=== PATIENT | male | born 1945 | race Caucasian/White ===

== ENCOUNTER → 2018-08-17 15:41 | Outpatient (POV) | payer MEDICARE, OTHER, SELFPAY | DX: Z00.00 Encounter for general adult medical examination without abnormal findings (principal) ==

== ENCOUNTER → 2018-09-21 13:29 | Outpatient (POV) | payer MEDICARE, OTHER, SELFPAY | DX: Z00.00 Encounter for general adult medical examination without abnormal findings (principal) ==

== ENCOUNTER 2024-08-22 15:00 | Outpatient (CLI) | payer MEDICARE, OTHER, SELFPAY ==
[2024-08-22 18:49] LABS: Alanine Aminotransferase 17 U/L (12-78); Albumin Level 4.2 g/dl (3.5-5.0); Albumin/Globulin Ratio 1.8 (1.1-1.8); Alkaline Phosphatase 76 U/L (38-126); Anion Gap 12.5 mEq/L (5-15); Aspartate Amino Transferase 28 U/L (17-59); Blood Urea Nitrogen 18 mg/dl (9-20); Calcium 10.2 mg/dl (8.4-10.2); Carbon Dioxide 26 mmol/L (22.0-30.0); Chloride 105 mmol/L (98-107); Estimated Glomerular Filt Rate 82 ml/min (>60); GFR (African American) 99 ML/MIN (>60); Globulin 2.3 g/dL (1.3-3.2); Glucose 98 mg/dl (74-100); Potassium 4.5 mmoL/L (3.5-5.1); Sodium 139 mmol/L (136-145); Total Protein,Serum 6.5 g/dl (6.3-8.2)
[2024-08-22 19:04] LABS: 25-OH Vitamin D, Total 26.7 ng/mL (30-100)
[2024-08-22 19:20] LABS: Prostate Specific Ag Screen 1.3 ng/ml (0.0-4.0); Thyroid Stimulating Hormone 0.49 uIU/mL (0.465-4.68)
== END 2024-08-22 23:59 | disposition home or self-care (01) ==
LOC: LAB.DROPOF 08-23 13:09
PROVIDERS: PCP Internal Medicine; Visit Provider Internal Medicine
DX: Z12.5 Encounter for screening for malignant neoplasm of prostate (principal); R53.83 Other fatigue; E55.9 Vitamin D deficiency, unspecified; R73.03 Prediabetes
CPT/HCPCS: 80053; 82306; 84443; G0103

== ENCOUNTER 2025-02-16 15:35 | Outpatient (CLI) | payer MEDICARE, OTHER, SELFPAY ==
[2025-02-16 18:14] LABS: Basophils % 0.2 % (0.1-2.0); Eosinophils # 0.1 Kmm3 (0.0-0.4); Eosinophils % 0.3 % (0.1-12.0); Hematocrit 35.9 % (42.0-52.0); Hemoglobin 12.1 g/dL (14.1-18.0); Immature Granulocytes # 0.11 10^3uL; Immature Granulocytes % 0.7 %; Lymphocytes # 0.7 K/mm3 (0.7-4.5); Lymphocytes % 4.3 % (10-50); Mean Corpuscular HGB Conc 33.7 g/dL (31.8-35.4); Mean Corpuscular Hemoglobin 29.4 pg (27.0-31.2); Mean Corpuscular Volume 87.1 fl (80-94); Mean Platelet Volume 10.6 fl (7.4-10.4); Monocytes # 1.2 K/mm3 (0.1-1.0); Monocytes % 7.9 % (1.7-9.3); Neutrophils # 13.6 K/mm3 (1.8-7.8); Neutrophils % 86.6 % (37.0-80.0); Nucleated Red Blood Cells # 0 10^3/uL; Nucleated Red Blood Cells % 0 %; Platelet Count 404 K/mm3 (142-424); Red Blood Count 4.12 M/mm3 (4.60-6.20); Red Cell Distribution Width-SD 44.6 fL; White Blood Count 15.8 K/mm3 (4.8-10.8)
[2025-02-16 19:20] LABS: Alanine Aminotransferase 42 U/L (12-78); Albumin Level 3.5 g/dl (3.5-5.0); Albumin/Globulin Ratio 1.3 (1.1-1.8); Alkaline Phosphatase 119 U/L (38-126); Amylase 39 U/L (30-110); Aspartate Amino Transferase 31 U/L (17-59); Blood Urea Nitrogen 16 mg/dl (9-20); Calcium 9.8 mg/dl (8.4-10.2); Carbon Dioxide 23 mmol/L (22.0-30.0); Chloride 100 mmol/L (98-107); Estimated Glomerular Filt Rate 82 ml/min (>60); GFR (African American) 99 ML/MIN (>60); Globulin 2.7 g/dL (1.3-3.2); Glucose 100 mg/dl (74-100); Lipase 52 U/L (23-300); Sodium 132 mmol/L (136-145); Total Protein,Serum 6.2 g/dl (6.3-8.2)
[2025-02-16 19:48] LABS: Anion Gap 13.9 mEq/L (5-15); Potassium 4.9 mmoL/L (3.5-5.1)
== END 2025-02-16 23:59 | disposition home or self-care (01) ==
LOC: LAB.DROPOF 02-19 22:38
PROVIDERS: PCP Family Medicine; Visit Provider Family Medicine
DX: R10.11 Right upper quadrant pain (principal)
CPT/HCPCS: 80053; 82150; 83690; 85025

== ENCOUNTER 2025-02-19 16:07 | Outpatient (CLI) | payer MEDICARE, OTHER, SELFPAY ==
[2025-02-19 18:32] LABS: Basophils # 0.1 K/mm3 (0-0.2); Basophils % 0.5 % (0.1-2.0); Eosinophils # 0.1 Kmm3 (0.0-0.4); Eosinophils % 0.9 % (0.1-12.0); Hematocrit 34.3 % (42.0-52.0); Hemoglobin 11.3 g/dL (14.1-18.0); Immature Granulocytes # 0.07 10^3uL; Immature Granulocytes % 0.6 %; Lymphocytes # 0.9 K/mm3 (0.7-4.5); Mean Corpuscular HGB Conc 32.9 g/dL (31.8-35.4); Mean Corpuscular Volume 87.9 fl (80-94); Monocytes # 0.8 K/mm3 (0.1-1.0); Monocytes % 7.1 % (1.7-9.3); Neutrophils # 9.1 K/mm3 (1.8-7.8); Neutrophils % 82.9 % (37.0-80.0); Nucleated Red Blood Cells # 0 10^3/uL; Nucleated Red Blood Cells % 0 %; Platelet Count 542 K/mm3 (142-424); Red Cell Distribution Width 13.7 % (11.5-17.5); Red Cell Distribution Width-SD 44.3 fL
== END 2025-02-19 23:59 | disposition home or self-care (01) ==
LOC: LAB.DROPOF 20:32
PROVIDERS: PCP Family Medicine; Visit Provider Family Medicine
DX: R10.9 Unspecified abdominal pain (principal)
CPT/HCPCS: 85025

== ENCOUNTER 2025-08-06 09:54 | Emergency (ER) | payer MEDICARE, OTHER, SELFPAY ==
--- OUTSIDE RECORDS SUMMARY | 2025-07-18 11:30 | XMS_ITS | Encounter Summary ---
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) Procedures MR Orbits w and wo IV Contrast Jose Miguel Mendieta MD [address] [facility] [address] [place] [id number] Phone: tel: fax: Referral ID Status Reason Start Date Expiration Date Visits Re quested Visits Authorized [id number] Closed 07/18/2025 01/17/2027 1 1 * Imaging (Urgent) - Closed Specialty Diagnoses / Procedures Referred By Contac t Referred To Contact Radiology Diagnoses 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) Procedures CT Chest w IV Contrast Jose Miguel Mendieta MD [address] [place] [address] Phone: tel: fax: Referral ID Status Reason Start Date Expiration Date Visits Re quested Visits Authorized [id number] Closed 07/18/2025 01/17/2027 1 1 * Imaging (Urgent) - Closed Specialty Diagnoses / Procedures Referred By Contac t Referred To Contact Radiology Diagnoses 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) Procedures CT Abdomen Pelvis w IV Contrast Jose Miguel Mendieta MD [address] [facility] [address] [place] [address] Phone: tel: fax: Referral ID Status Reason Start Date Expiration Date Visits Re quested Visits Authorized [id number] Closed 07/18/2025 01/17/2027 1 1 Encounter Details Date Type Department Care Team (Late st Contact Info) Description 07/18/2025 12:30 PM EDT Office Visit [facility] [address] [place] [address] Jose Miguel Mendieta MD [address] [phone] 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); Exudative retinal detachment of left eye Social History Tobacco Use Types Packs/Day Years Used Date Smoking Tobacco: Former Cigarettes Q uit: 07/18/1975 Passive Smoke Exposure: Past Smokeless Tobacco: Never Tobacco Cessation:Counseling Given: No Sex and Gender Information Value Date Recorded Sex Assigned at Not on file Legal Sex Male 2:53 PM EDT Gender Identity Not on file Sexual Orientation Not on file documented as of this encounter Miscellaneous Notes * Progress Notes - Mario Rubio MD - 07/18/2025 12:30 PM EDT Referring physician: No referring provider defined for this encounter. Primary Care Provider: No primary care provider on file. Visit Diagnosis: 1. 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 Exudative retinal detachment of left eye Clinic Note: Thanks for involving Retina / Ocular Oncology services at [facility] in the care of Zaynab Lincoln is a 80 y.o. male who presents to the clinic today for Left eye (OS) cilliochoroidal Melanoma - Referred by Dr. Leanna Segundo MD - Personal history of cancer no - Family history of cancer melanoma of face in brother with hematogenous spread, cancer in sister but unknown type - Patient aware about lesion since 2-3 days - Blurred vision last 2-3 months - Clinical Features: - Melanotic elevated pigmented cilliochoroidal mass - Exudative Retinal Detachment + - USG : Basal Dimensions 16.51*16.87 mm; Thickness 12.55 mm; Acoustic hollowness: yes - UBM confirms CB involvement - transillumination shows pigmentation from 7:00 - 12:00 - Needs MRI orbit and CT chest and Abdomen - Risk, Benefits and Alternatives of Enucleation vs EBRT discussed - Patient's sister in law voiced her understanding as patient donot speak much - Refer to Dr Mathew for enucleation Follow up for Refer to Dr Mathew. Patient expressed understanding of the diagnoses, plan, and follow up. Electronically signed by: Jose Miguel Mendieta MD 07/18/2025 5:55 PM Electronically Signed by: Mario Rubio MD - 07/18/2025 - 2:22 PM Tobacco Cessation Initiative: Tobacco Use: Medium Risk (07/18/2025) Patient History Smoking Tobacco Use: Former Smokeless Tobacco Use: Never Passive Exposure: Past The patient has been counseled on tobacco cessation: Not Applicable A total of 45 minutes was spent on this visit, reviewing both external and internal historical documentation, reviewing the examination and investigations findings with patient, discussing managementplan with the patient and documenting all the findings in the note. This time documented is exclusive of separately reportable procedures. Cosigned by Jose Miguel Mendieta MD at 07/18/2025 5:55 PM EDT Associated attestation - Jose Miguel Mendieta MD - 07/18/2025 5:55 PM EDT I saw and evaluated the patient with the resident/fellow. I discussed the case with the resident/fellow and agree with the findings and plan as documented. 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 1. There are two ellipsoid masses within the left globe. The larger mass located along the medial aspect of the globe measures approximately 17 mm x 11 mm x 17 mm in size which appears to invade ciliary body, iris and the adjacent sclera as described above. The smaller mass measuring approximately 10 mm x 5 mm x 11 mm in size is located in the inferolateral quadrant and demonstrates less enhancement and diffusion restriction compared to the larger mass. No obvious involvement of the left optic nerve is seen. 2. The right orbit and its contents appear unremarkable. No obvious abnormal enhancement or mass is seen in the visualized brain parenchyma. Recommend clinical correlation and ophthalmologic evaluation. CRITICAL RESULT: No COMMUNICATION: Per this written report. By electronically signing this report, I, the attending physician, attest that I have personally reviewed the images/data for the above examination(s) and agree with the final edited report. Drafted by Kaveh Townsend MD on 07/30/2025 9:36 AM Final report signed by Luisa Harkins MD on 07/30/2025 11:36 AM Narrative 07/30/2025 11:36 AM EDT CLINICAL INDICATION: OS Uveal Melanoma TECHNIQUE: Multiplanar multiecho sequences were obtained utilizing T1 and T2 weighting and axial diffusion weighted images through the orbits. Imaging was performed with and without fat saturation and with and without IV contrast. A coronal post-contrast 1mm thick T1-weighted 3D MP RAGE and T2 -SPACE sequences were obtained and multiplanar reformatted images were created. 7.6 mL of Gadavist administered intravenously. COMPARISON: None. FINDINGS: Diagnostic Quality: Adequate. Right Orbit: No orbital masses are present. The globe, extraocular muscles, and lacrimal glands are normal. Optic Nerves: The optic nerves are normal in size and signal intensity. No abnormal enhancement is present within the optic nerves or optic nerve sheaths. Left Orbit: Globe: There are two ellipsoid masses within the left globe: the larger mass located along the medial aspect of the globe measures approximately 17 mm AP by 11 mm transverse by 17 mm in craniocaudal dimensions (series 9, image 99 and series 8, image 33). It demonstrates hypointense signal on T2-weighted images, hypointense on T1-weighted images, diffusion restriction and intense postcontrast enhancement. Mean ADC of the mass is 599 mm2/sec and that of the vitreous is 3893 mm2/sec. The smaller mass located along the inferior lateral quadrant of the globe is difficult to measure precisely because of motion degradation but possibly measures approximately 10 mm x 5 mm transaxial plane and 11 mm in craniocaudal dimensions (series 9, image 77 and series 8, image 37). It demonstrates less enhancement compared to the larger mass. No obvious diffusion restriction is seen in this lesion. Location and Invasion: The medially located larger mass arises within the choroid and appears to invade ciliary body and iris (series 6, image 78, 79). There is irregular inner contour and/or slight enhancement of the sclera to suggest scleral invasion (although MRI has limited utility in identification/exclusion of scleral invasion). There is no evidence of extrascleral extension. There is no obvious pre- and postlaminar optic nerve invasion within the limits of motion degradation. The smaller, laterally located mass is not demonstrated invasion of the C3 body, aneurysm or optic nerve. Extraocular muscles: Normal. Lacrimal glands: Normal. Optic Nerves: The optic nerves are normal in size and signal intensity. No abnormal enhancement is present within the optic nerves or optic nerve sheaths. Soft Tissues: No masses are present within the preseptal and periorbital soft tissues. Sellar/Suprasellar Region: No sellar or suprasellar masses are present. No cavernous sinus masses are present. Paranasal Sinuses/Nasal Cavity: The visualized paranasal sinuses are grossly clear. No nasal masses are present. Intracranial: On the limited evaluation of the brain, no large mass is evident. Procedure Note Luisa Harkins MD - 07/30/2025 CLINICAL INDICATION: OS Uveal Melanoma TECHNIQUE: Multiplanar multiecho sequences were obtained utilizing T1 and E5hmljcupwy and axial diffusion weighted images through the orbits. Imagingwas performed with and without fat saturation and with and without IVcontrast. A coronal post-contrast 1mm thick T1-weighted 3D MP RAGE and T2-SPACE sequences were obtained and multiplanar reformatted images werecreated. 7.6 mL of Gadavist administered intravenously. COMPARISON: None. FINDINGS: Diagnostic Quality: Adequate. Right Orbit: No orbital masses are present. The globe, extraocular muscles, andlacrimal glands are normal. Optic Nerves: The optic nerves are normal in size and signal intensity. Noabnormal enhancement is present within the optic nerves or optic nervesheaths. Left Orbit: Globe: There are two ellipsoid masses within the left globe: the largermass located along the medial aspect of the globe measures [id number] mm AP by 11 mm transverse by 17 mm in craniocaudal dimensions (series9, image 99 and series 8, image 33). It demonstrates hypointense signal onT2-weighted images, hypointense on T1-weighted images, diffusionrestriction and intense postcontrast enhancement. Mean ADC of the mass is599 mm2/sec and that of the vitreous is 3893 mm2/sec. The smaller mass located along the inferior lateral quadrant of the globeis difficult to measure precisely because of motion degradation butpossibly measures approximately 10 mm x 5 mm transaxial plane and 11 mm incraniocaudal dimensions (series 9, image 77 and series 8, image 37). Itdemonstrates less enhancement compared to the larger mass. No obviousdiffusion restriction is seen in this lesion. Location and Invasion: The medially located larger mass arises within thechoroid and appears to invade ciliary body and iris (series 6, image 78,79). There is irregular inner contour and/or slight enhancement of thesclera to suggest scleral invasion (although MRI has limited utility inidentification/exclusion of scleral invasion). There is no evidence ofextrascleral extension. There is no obvious pre- and postlaminar opticnerve invasion within the limits of motion degradation. The smaller, laterally located mass is not demonstrated invasion of the C3body, aneurysm or optic nerve. Extraocular muscles: Normal. Lacrimal glands: Normal. Optic Nerves: The optic nerves are normal in size and signal intensity. Noabnormal enhancement is present within the optic nerves or optic nervesheaths. Soft Tissues: No masses are present within the preseptal and periorbitalsoft tissues. Sellar/Suprasellar Region: No sellar or suprasellar masses are present. Nocavernous sinus masses are present. Paranasal Sinuses/Nasal Cavity: The visualized paranasal sinuses aregrossly clear. No nasal masses are present. Intracranial: On the limited evaluation of the brain, no large mass isevident. IMPRESSION: Limitations: Significant motion degradation. 1. There are two ellipsoid masses within the left globe. The larger masslocated along the medial aspect of the globe measures approximately 17 mmx 11 mm x 17 mm in size which appears to invade ciliary body, iris and theadjacent sclera as described above. The smaller mass measuringapproximately 10 mm x 5 mm x 11 mm in size is located in the inferolateralquadrant and demonstrates less enhancement and diffusion restrictioncompared to the larger mass. No obvious involvement of the left opticnerve is seen. 2. The right orbit and its contents appear unremarkable. No obviousabnormal enhancement or mass is seen in the visualized brain parenchyma. Recommend clinical correlation and ophthalmologic evaluation. CRITICAL RESULT: No COMMUNICATION: Per this written report. By electronically signing this report, I, the attending physician, attestthat I have personally reviewed the images/data for the aboveexamination(s) and agree with the final edited report. Drafted by Kaveh Townsend MD on 07/30/2025 9:36 AM Final report signed by Lusia Harkins MD on 07/30/2025 11:36 AM Jose Miguel Mendieta MD IMG MRI PROCEDURES Final Result * CT Chest w IV Contrast (07/26/2025 1:56 PM EDT) Anatomical Region Laterality Modality Chest Computed Tomogra phy Impressions 07/26/2025 3:20 PM EDT No definitive evidence of thoracic metastatic disease. Tiny right apical noncalcified pulmonary nodule. CRITICAL RESULT: No. COMMUNICATION: Per this written report. By electronically signing this report, I, the attending physician, attest that I have personally reviewed the images/data for the above examination(s) and agree with the final edited report. Drafted by Donnie De Los Santos MD on 07/26/2025 2:35 PM Final report signed by Santy Olson MD on 07/26/2025 3:20 PM Narrative 07/26/2025 3:20 PM EDT CLINICAL INDICATION: OS Uveal Melanoma systemic surveillance TECHNIQUE: Multiple CT helical images were obtained from thoracic inlet through upper abdomen with administration of IV contrast. 100 mL of Omnipaque-300 were administered intravenously. The imaging protocol used in this examination was optimized to achieve diagnostic quality with the lowest possible radiation dose in accordance with the principles of ALARA (As Low As Reasonably Achievable). COMPARISON: None. FINDINGS: Mediastinum and Pleura: No suspicious hilar mediastinal adenopathy. Moderate multivessel coronary calcification. Several hypodensities within the thyroid, largest measuring 4 mm (series 2 image 69). Lungs: Central airways are patent. No mass or consolidation. Bibasilar atelectasis. Tiny right apical nodule (series 2 image 121). Upper Abdomen: Please see separate report for findings of the concurrently performed abdominal CT. Musculoskeletal: Multilevel degenerative changes of the spine without suspicious lytic or sclerotic lesion. Degenerative changes of the shoulders. Procedure Note Santy Olson MD - 07/26/2025 CLINICAL INDICATION: OS Uveal Melanoma systemic surveillance TECHNIQUE: Multiple CT helical images were obtained from thoracic inlet through upperabdomen with administration of IV contrast. 100 mL of Omnipaque-300 wereadministered intravenously. The imaging protocol used in this examination was optimized to achievediagnostic quality with the lowest possible radiation dose in accordancewith the principles of ALARA (As Low As Reasonably Achievable). COMPARISON: None. FINDINGS: Mediastinum and Pleura: No suspicious hilar mediastinal adenopathy.Moderate multivessel coronary calcification. Several hypodensities withinthe thyroid, largest measuring 4 mm (series 2 image 69). Lungs: Central airways are patent. No mass or consolidation. Bibasilaratelectasis. Tiny right apical nodule (series 2 image 121). Upper Abdomen: Please see separate report for findings of the concurrentlyperformed abdominal CT. Musculoskeletal: Multilevel degenerative changes of the spine withoutsuspicious lytic or sclerotic lesion. Degenerative changes of theshoulders. IMPRESSION: No definitive evidence of thoracic metastatic disease. Tiny right apical noncalcified pulmonary nodule. CRITICAL RESULT: No. COMMUNICATION: Per this written report. By electronically signing this report, I, the attending physician, attestthat I have personally reviewed the images/data for the aboveexamination(s) and agree with the final edited report. Drafted by Donnie De Los Santos MD on 07/26/2025 2:35 PM Final report signed by Santy Olson MD on 07/26/2025 3:20 PM us Jose Miguel Mendieta MD IMG CT PROCEDURES Final Result * CT Abdomen Pelvis w IV Contrast (07/26/2025 1:56 PM EDT) Anatomical Region Laterality Modality Abdomen, Pelvis Computed Tomogra phy Impressions 07/26/2025 2:11 PM EDT Heterogenous appearance of the gallbladder with indistinct margins and concern for infiltration into the adjacent hepatic parenchyma concerning for malignancy. Indeterminate left adrenal gland nodule. Numerous low-attenuation hepatic lesions majority consistent with simple cysts. Few additional foci are too small to characterize. Bilateral nephrolithiasis. No hydronephrosis. CRITICAL RESULT: No. COMMUNICATION: Per this written report. Drafted by Lynn Corrales MD on 07/26/2025 2:01 PM Final report signed by Lynn Corrales MD on 07/26/2025 2:11 PM Narrative 07/26/2025 2:11 PM EDT CLINICAL INDICATION: OS Uveal Melanoma systemic surveillance TECHNIQUE: Multiple axial CT images were obtained from lung bases through pubic symphysis following administration of IV contrast, Omnipaque 300, 100 mL. Reformatted images in the coronal and sagittal planes were generated from the axial data set to facilitate diagnostic accuracy. Total DLP (Dose-Length Product): 439.28 mGy.cm. Please note: The reported value represents the total of one or more individual components during the CT acquisition on this date and at this time, and as such, the same value may appear in more than one CT report depending on the interpreting/reporting physicians. COMPARISON: None. FINDINGS: Lower Chest: Please see separate report. Solid Abdominal Organs: Multiple low-attenuation lesions along the right and left hepatic lobes consistent with hepatic cysts. Several smaller low-attenuation lesions are too small to characterize. Largest lesion in the left hepatic lobe measures 8.5 cm (3:62). Right hepatic lobe lesion measures 6 cm (3:73). Heterogenous gallbladder with indistinct margins and concern for infiltration into the adjacent hepatic parenchyma. No biliary ductal dilatation. Unremarkable spleen, pancreas, right adrenal gland left adrenal gland nodule measures 16 mm (3:74). Symmetric renal enhancement. Bilateral nephrolithiasis with 9 mm calculus in the left lower pole. No hydronephrosis. GI Tract/Mesentery/Peritoneum: Unremarkable stomach. The large and small bowel are normal in caliber. Small bowel diverticulosis. No acute inflammation. No clearly suspicious mesenteric or peritoneal findings. Pelvic Viscera: Unremarkable urinary bladder. Enlarged prostate. Lymph Nodes/Vasculature: No lymphadenopathy by CT size criteria. The aortoiliac vasculature is patent and normal in caliber. Free Fluid: No free fluid in the abdomen or pelvis. Musculoskeletal and Body Wall: No aggressive or suspicious findings. Degenerative changes of the spine greatest at L5-S1. Probable T3 12 Schmorl's node. Right inguinal hernia. Procedure Note Lynn Corrales MD - 07/26/2025 CLINICAL INDICATION: OS Uveal Melanoma systemic surveillance TECHNIQUE: Multiple axial CT images were obtained from lung bases through pubicsymphysis following administration of IV contrast, Omnipaque 300, 100 mL.Reformatted images in the coronal and sagittal planes were generated fromthe axial data set to facilitate diagnostic accuracy. Total DLP (Dose-Length Product): 439.28 mGy.cm. Please note: The reportedvalue represents the total of one or more individual components during theCT acquisition on this date and at this time, and as such, the same valuemay appear in more than one CT report depending on theinterpreting/reporting physicians. COMPARISON: None. FINDINGS: Lower Chest: Please see separate report. Solid Abdominal Organs: Multiple low-attenuation lesions along the rightand left hepatic lobes consistent with hepatic cysts. Several smallerlow-attenuation lesions are too small to characterize. Largest lesion inthe left hepatic lobe measures 8.5 cm (3:62). Right hepatic lobe lesionmeasures 6 cm (3:73). Heterogenous gallbladder with indistinct margins andconcern for infiltration into the adjacent hepatic parenchyma. No biliaryductal dilatation. Unremarkable spleen, pancreas, right adrenal gland leftadrenal gland nodule measures 16 mm (3:74). Symmetric renal enhancement.Bilateral nephrolithiasis with 9 mm calculus in the left lower pole. Nohydronephrosis. GI Tract/Mesentery/Peritoneum: Unremarkable stomach. The large and smallbowel are normal in caliber. Small bowel diverticulosis. No acuteinflammation. No clearly suspicious mesenteric or peritoneal findings. Pelvic Viscera: Unremarkable urinary bladder. Enlarged prostate. Lymph Nodes/Vasculature: No lymphadenopathy by CT size criteria. Theaortoiliac vasculature is patent and normal in caliber. Free Fluid: No free fluid in the abdomen or pelvis. Musculoskeletal and Body Wall: No aggressive or suspicious findings.Degenerative changes of the spine greatest at L5-S1. Probable T3 12Schmorl's node. Right inguinal hernia. IMPRESSION: Heterogenous appearance of the gallbladder with indistinct margins andconcern for infiltration into the adjacent hepatic parenchyma concerningfor malignancy. Indeterminate left adrenal gland nodule. Numerous low-attenuation hepatic lesions majority consistent with simplecysts. Few additional foci are too small to characterize. Bilateral nephrolithiasis. No hydronephrosis. CRITICAL RESULT: No. COMMUNICATION: Per this written report. Drafted by Lynn Corrales MD on 07/26/2025 2:01 PM Final report signed by Lynn Corrales MD on 07/26/2025 2:11 PM us Jose Miguel Mendieta MD IMG CT PROCEDURES Final Result * Ultrasound Biomicroscopy (UBM) - OD - Right Eye (07/18/2025 5:47 PM EDT) Anatomical Region Laterality Modality Head Other Narrative 07/18/2025 5:47 PM EDT Images from the original result were not included. Quality was good. Notes Addendum: Left eye (OS) not right eye (OD) us Jose Miguel Mendieta MD [facility] ULTRASOUND Edited Result - Final * B-Scan Ultrasound - OD - Right Eye (07/18/2025 5:47 PM EDT) Anatomical Region Laterality Modality Head Other Narrative 07/18/2025 5:47 PM EDT Images from the original result were not included. Quality was good. Notes Addendum: Left eye (OS) not right eye (OD) us Jose Miguel Mendieta MD OPH ULTRASOUND Edited Result - Final * Wide Field Color Fundus Photography - OU - Both Eyes (07/18/2025 5:46 PM EDT) Anatomical Region Laterality Modality Fundus Photograp hy Narrative 07/18/2025 5:46 PM EDT Right eye dilated tortous vessel, rest within normal limit Left eye large cilliochoroidal mass lesion from 6-12 o'clock with Exudative Retinal Detachment us Jose Miguel Mendieta MD OPH PHOTOGRAPHY Final Result * OCT, Retina - OU - Both Eyes (07/18/2025 5:44 PM EDT) Anatomical Region Laterality Modality Head Optical Coherenc e Tomography Narrative 07/18/2025 5:44 PM EDT Right Eye Quality was good. Scan locations included subfoveal. Progression has no prior data. Left Eye Quality was good. Scan locations included subfoveal. Progression has no prior data. 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
--- OUTSIDE RECORDS SUMMARY | 2025-07-18 11:40 | XMS_ITS | Encounter Summary ---
Author Organization Healthcare Address [address] [place] [address] Care Team Providers Care Herb Counselor Name Role Phone Unavailable Primary Care Provider Unavailabl e Encounter Details Date Type Department Care Team (Late st Contact Info) Description 07/18/2025 12:40 PM EDT Ancillary Procedure [facility] [address] [place] [address] Social History Tobacco Use Types [...] Encounters Date Type Department Care Team (Late Contact Info) Description 08/08/2025 11:15 AM EST Office Visit [facility] [address] [place] [address] Sridhar Mathew MD [address] [address] documented as of this encounter Procedures Procedure Name Priority Date/Time Associated Diagnosis Comments WIDE FIELD COLOR FUNDUS PHOTOGRAPHY - OU - BOTH EYES Routine 07/18/2025 5:46 PM EDT 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) documented in this encounter Results * Wide Field Color Fundus Photography - OU - Both Eyes (07/18/2025 5:46 PM EDT) Anatomical Region Laterality Modality Fundus Photograp hy Narrative 07/18/2025 5:46 PM EDT Right eye dilated tortous vessel, rest within normal limit Left eye large cilliochoroidal mass lesion from 6-12 o'clock with Exudative Retinal Detachment us Jose Miguel Mendieta MD OPHTH PHOTOGRAPHY Final Result documented in this encounter Visit Diagnoses Not on filedocumented in this encounter Additional Health Concerns Assessment Noted Time A fall risk assessment has been complete d for the patient 07/18/2025 12:58 PM EDT documented as of this encounter
--- OUTSIDE RECORDS SUMMARY | 2025-07-18 11:40 | XMS_ITS | Encounter Summary ---
Author Organization [facility] Address [address] [place] [address] Care Team Providers Care Review Rn Name Role Phone Unavailable Primary Care Provider Unavailabl e Encounter Details Date Type Department Care Team (Late st Contact Info) Description 07/18/2025 12:40 PM EDT Ancillary Procedure [facility] [address] [place] [address] Social History Tobacco Use Types [...] Description 08/08/2025 11:15 AM EST Office Visit [facility] [address] [place] [address] Sridhar Mathew MD [address] [address] documented as of this encounter [...]
--- OUTSIDE RECORDS SUMMARY | 2025-07-26 11:35 | XMS_ITS | Encounter Summary ---
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) Procedures CT Chest w IV Contrast Jose Miguel Mendieta MD [address] [address] Phone: tel: fax: Referral ID Status Reason Start Date Expiration Date Visits Re quested Visits Authorized [id number] Closed 07/18/2025 01/17/2027 1 1 * Imaging (Urgent) - Closed Specialty Diagnoses / Procedures Referred By Contac t Referred To Contact Radiology Diagnoses 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) Procedures CT Abdomen Pelvis w IV Contrast Jose Miguel Mendieta MD 110 [facility] [address] [place] [phone] Phone: tel: fax: Referral ID Status Reason Start Date Expiration Date Visits Re quested Visits Authorized [id number] Closed 07/18/2025 01/17/2027 1 1 Reason for Visit * Imaging (Urgent) - Closed Specialty Diagnoses / Procedures Referred By Contac t Referred To Contact Radiology Diagnoses 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) Procedures CT Abdomen Pelvis w IV Contrast Jose Miguel Mendieta MD [address] [place] [address] Phone: tel: fax: Referral ID Status Reason Start Date Expiration Date Visits Re quested Visits Authorized [id number] Closed 07/18/2025 01/17/2027 1 1 Encounter Details Date Type Department Care Team (Latest Contact Info) Description 07/26/2025 12:35 PM EDT - 07/26/2025 11:59 PM EDT Hospital Encounter [facility] [address] [place] [address] 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 [...] Discharge Instructions * Discharge Instructions* Callum [place] M - 07/26/2025 1:01 PM EDT Images from [...] every 6 hours as needed. HYDROcodone-aceta minophen ([place]) 5-325 MG tablet Take 1 tablet by [...] Description 08/08/2025 11:15 AM EST Office Visit [facility] [address] [place] [phone] Sridhar Mathew MD [address] [address] documented as of this encounter Goals [...] documented as of this encounter Care Teams Relay Record Clerk Relationship Specialty Start Date End Date Pcp, No [address] [place] [address] PCP - General Family Medicine 07/26/25 documented as of this encounter
--- OUTSIDE RECORDS SUMMARY | 2025-07-30 06:33 | XMS_ITS | Encounter Summary ---
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) Procedures MR Orbits w and wo IV Contrast Jose Miguel Mendieta MD [address] [employer] [address] [address] Phone: tel: fax: Referral ID Status Reason Start Date Expiration Date Visits Re quested Visits Authorized [id number] Closed 07/18/2025 01/17/2027 1 1 Reason for Visit * Imaging (Urgent) - Closed Specialty Diagnoses / Procedures Referred By Kira pino Referred To Contact Radiology Diagnoses 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) Procedures MR Orbits w and wo IV Contrast Jose Miguel Mendieta MD [address] [employer] [address] [address] Phone: tel: fax: Referral ID Status Reason Start Date Expiration Date Visits Re quested Visits Authorized [id number] Closed 07/18/2025 01/17/2027 1 1 Encounter Details Date Type Department Care Team (Latest Contact Info) Description 07/30/2025 7:33 AM EDT - 07/30/2025 11:59 PM EDT Hospital Encounter PAV A Radiology [address] [place] [address] 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 Wish to be (Past 1 Month) No 025 2:31 PM EDT Loraine Beebe RN 2. Non-Specific Active Suici danelle Thoughts (Past 1 Month) No 08/02/2025 2:31 PM EDT Tim Beebe RN 6. Suicidal Behavior (Lifetime) No 2:31 PM EDT Loraine Beebe RN documented as of this encounter Medications at Time of Discharge acetaminophen (Tylenol) 500 MG tablet Take 2 tablets by mouth every 6 hours as needed. HYDROcodone-aceta minophen ([place]) 5-325 MG tablet Take 1 tablet by [...] Description 08/08/2025 11:15 AM EST Office Visit [facility] [address] [place] [address] Sridhar Mathew MD [address] [place] [address] documented as of this encounter Goals [...] multiecho sequences were obtained utilizing T1 and H5faffajqyl and axial diffusion weighted images through the [...] the medial aspect of the globe measures [id number] mm AP by 11 mm transverse by [...] documented as of this encounter Care Teams Staffing Consultant Relationship Specialty Start Date End Date Pcp, [place] [address] PCP - General Family Medicine 07/26/25 documented as of this encounter
--- OUTSIDE RECORDS SUMMARY | 2025-07-30 10:30 | XMS_ITS | Encounter Summary ---
Author Organization [facility] Address [address] 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 male. Chief Complaint eye melanoma HPI 80 year old male here for enucleation evaluation. 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 He states left eye seems stable no new concerns. Last edited by Tiarra Gee on 07/30/2025 11:34 AM. No current outpatient medications on file. (Ophthalmic Drugs) No current facility-administered medications for this visit. (Ophthalmic Drugs) Current Outpatient Medications (Other) Medication Sig acetaminophen (Tylenol) 500 MG tablet Take 2 tablets by mouth every 6 hours as needed. No current facility-administered medications for this visit. (Other) Objective Base Eye Exam Visual Acuity (Snellen - Linear) Right Left Dist cc 20/40 20/80 Dist ph cc 20/25 -2 +2 NI Correction: Glasses Pupils Pupils Right PERRL Left PERRL Visual [place] Right Left Full Full Extraocular Movement Right Left Full Full Neuro/Psych Oriented x3: Yes Mood/Affect: Normal Slit Lamp and Fundus Exam External Exam Right Left External Normal Normal Slit Lamp Exam Right Left Lids/Lashes mild blepharitis, lateral DCL mild blepharitis, lateral DCL Conjunctiva/Sclera Normal Normal Cornea Clear and compact Clear and compact Anterior Chamber Deep and quiet Deep and quiet Iris Normal pupil size and shape elevation of nasal iris, no heterochromia Lens PCIOL PCIOL Vitreous Normal lesion obscuring view nasal Assessment/Plan Assessment & Plan 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 Consult by Dr. Jose Miguel Mendieta who has seen and evaluated patient and referredpatient to oculoplastics for enucleation. MRI Orbits 07/30/25 IMPRESSION: Limitations: Significant motion degradation. 1. There [...] in the inferolateral quadrant and demonstrates less enhanceme nt and diffusion restriction compared to the larger mass. No obvious involvement of the left optic nerve is seen. 2. The right orbit and its contents appear unremarkable. No obvious abnormal enhancement or mass isseen in the visualized brain parenchyma. Discussed r/b/a of enucleation left eye (OS) with left orbital implant including whole donor sclera, risks include bleeding, infection, need for additional surgery, tumor spread or metastasis despiteenucleation. Patient understands that eye will be removed and patient will never have vision again in the left eye. Patient also understands that postoperatively he will require temporary implantation with a conformer followed by permanent prosthetic implantation into left orbit at a later date. Patient understands that donor sclera will be used in the reconstruction of the left orbit. Patient understands and wishes to proceed with enucleation of the left eye with implant insertion and whole donor sclera use Instructed pt to call if any issues Tobacco Use: Medium Risk (07/30/2025) Patient History Smoking Tobacco Use: Former Smokeless Tobacco Use: Never Passive Exposure: Past The patient has been counseled on tobacco cessation: Not Applicable A complete eye exam of periorbital structures, anterior segment, and posterior segment (undilated) was ordered, reviewed, and interpreted by Sridhar Mathew MD. All results reviewed and within normal limits except as outlined above. A review of both external and internal historical documentation was completed by provider Patient history, provider findings, and provider assessment and plan discussed with the patient.. Monitoring and / or treatment of the conditions outlined above is necessary to prevent lifelong disability Note to the reader: The Century Cures Act makes medical notes like these available to patientsin the interest of transparency. However, be advised this is a medical document. It is intended as peer to peer communication. It is written in medical language and may contain abbreviations or verbiage that are unfamiliar. It may appear blunt or direct. Medical documents are intended to carry relevant information, facts as evident, and the clinical opinion of the practitioner. For a list of common ophthalmology abbreviations, please refer to: https://www.aao.org/young-ophthalmologists/yo-info/article/njjtikfu-cjmri-tvmacn lmic-abbreviations Cosigned by Sridhar Mathew MD at 07/30/2025 12:13 PM EDT Associated attestation - Sridhar Mathew MD - 07/30/2025 12:13 PM EDT I saw and evaluated the patient with the resident/fellow. I discussed the case with the resident/fellow and agree with the findings and plan as documented. documented in this encounter Plan of Treatment Upcoming Encounters Date Type Department Care Team (Late st Contact Info) Description 08/08/2025 11:15 AM EST Office Visit [facility] [address] [place] [address] Sridhar Mathew MD [address] [place] [address] documented as of this encounter Goals Goal Patient Goal Type Associated Problems Recent Progress Patient-Stated? 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
--- OUTSIDE RECORDS SUMMARY | 2025-08-01 15:15 | XMS_ITS | Encounter Summary ---
Author Organization Healthcare Address [address] 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) Procedures MR Abdomen w and wo IV Contrast Jose Miguel Mendieta MD [address] [address] Phone: tel: fax: Referral ID Status Reason Start Date Expiration Date Visits Re quested Visits Authorized [id number] Closed 07/27/2025 01/26/2027 1 1 Reason for Visit * Imaging (Urgent) - Closed Specialty Diagnoses / Procedures Referred By Kira pino Referred To Contact Radiology Diagnoses 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 [place] [id number] 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 [...] on file documented as of this encounter Medications at Time of Discharge acetaminophen (Tylenol) 500 MG tablet Take 2 tablets by mouth every 6 hours as needed. HYDROcodone-aceta minophen ([place]) 5-325 MG tablet Take 1 tablet by [...] Description 08/08/2025 11:15 AM EST Office Visit [facility] [address] [place] [address] Sridhar Mathew MD [address] [address] documented as of this encounter [...] using the following sequences: coronal single shot [id number] fast spin echo, axial T2 weighted sequences [...] 08/02/2025 9:49 AM Jose Miguel Mendieta MD IMG MRI [...] documented as of this encounter Care Teams Respiratory Therapist Assistant Relationship Specialty Start Date End Date Pcp, [place] [address] PCP - General Family Medicine 07/26/25 documented as of this encounter
--- OUTSIDE RECORDS SUMMARY | 2025-08-02 10:59 | XMS_ITS | Encounter Summary ---
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] Procedures FL REMOVE EYE W MUSC TO IMPLANT Left enucleation with orbital implant insertion Sridhar Mathew MD [address] [address] Phone: tel: fax: [facility] [address] [place] [phone] Phone: tel: Referral ID Status Reason Start Date Expiration Date Visits Re quested Visits Authorized [id number] 1 1 Encounter Details Date Type Department Care Team (Latest Contact Info) Description 08/02/2025 11:59 AM EDT - 08/02/2025 6:24 PM EDT Hospital Encounter [facility] [address] [place] [phone] Sridhar Mathew MD [address] [phone] 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) Discharge Disposition: Home or Self Care Social [...] on file documented as of this encounter Last Filed Vital Signs Vital Sign Reading Time Taken Comments Blood Pressure 177/86 08/02/2025 5:45 PM EDT Pulse 63 08/02/2025 5:55 PM EDT Temperature 36.5 C (97.7 F) 08/02/2025 5:45 PM EDT Respiratory Rate 15 08/02/2025 5:55 PM EDT Oxygen Saturation 95% 08/02/2025 5:55 PM EDT Inhaled Oxygen Concentration - - Weight 75.3 kg (166 lb 0.1 oz) 08/02/2025 2:15 P M EDT Height 162.6 cm (5' 4 ) 08/02/2025 2:15 PM EDT Body Mass Index 28.49 08/02/2025 2:15 PM EDT documented in this encounter Functional Status * Calculated C-SSRS Risk Score (Lifetime/Recent) Answer Date of Assessment Author No Risk Indicated 08/02/2025 2:31 PM EDT Loraine Beebe RN * Question Answer Date of Assessment Author 1. Wish to be (Past 1 Month) No 2:31 PM EDT Loraine Beebe RN 2. Non-Specific Active Suici danelle Thoughts (Past 1 Month) No 08/02/2025 2:31 PM EDT Tim Beebe RN 6. Suicidal Behavior (Lifetime) No 2:31 PM EDT Loraine Beebe RN documented as of this encounter Discharge Instructions * Discharge Instructions* Beverly Gonzalez RN - 08/02/2025 4:45 PM EDT Images from the original note were not included. Post-Anesthesia and Postoperative Instructions () In order to have a fast and comfortable recovery at home, please follow these instructions. A responsible adult must be present for you to be discharged. Do not drive, drink alcohol or make important decisions for 24 hours after surgery. You may feel like resting more than normal after surgery. Start slowly and be more active each day. Start slowly with liquids like 7-up, tea, apple juice or broth. Eat more as your stomach allows. Ifyou feel sick to your stomach, go back to drinking liquids. You may feel some discomfort after surgery. Take the medicine as directed by your caregiver. If your medicine makes you drowsy, do not drink alcohol, drive or operate heavy equipment for at least 24 hours after use. If you are taking antibiotics, take them until they are all gone even if you feel well. Cover your wound or bandage when showering, unless your doctor tells you differently. A small amount of drainage on your bandage is normal. Do not remove your bandage unless your doctortells you to. Please keep track of information about the medicines you take. Follow these tips to manage your medicines. Keep a list of all your medicines. Update the list when you start or stop taking a medicine. Write down changes in how you should take them. Carry your medicine list with you at all times. It will be needed if you have a health emergency . Give the list to your family doctor. Take the list to all your doctor visits. Call your doctor if you have any of the following Temperature higher than 101.5??F Chest pain or difficulty breathing Stomach sickness or throwing up that does not go away You cannot urinate by bedtime Pain is not helped by your medicine. Bandage becomes soaked with blood - Don't remove the bandage, reinforce only Swelling, redness, pain or pus from incision Questions or concerns about your surgery. In the event of an emergency, please go to the closest Emergency Room or call the Emergency Department at [phone]. Smoking and its health risks Smoking is the most preventable cause of illness and in the [place]. Cigarettes are filled with poison that goes into the lungs as you inhale. About 440,000 people every year from illnesses caused by smoking. People who smoke earlier than those who do not smoke. Heart and blood vessel disease, lung disease and ulcers are just some of the health problems that may be caused by smoking. Smoking also slows bone and wound healing and may slow your recovery from surgery. For help quitting smoking, call the National Cancer [place]'s Quitline toll free at or ask your doctor for help. Weight Management Weighing too much is not good for your health. Being overweight increases your risk of health conditions such as heart problems, high blood pressure, type 2 diabetes, and certain types of cancer. Being overweight can also increase your risk for osteoarthritis (ox-iks-jx-hcf-MAZP-xds) (joint disease), sleep apnea (abnormal breathing at night) or other respiratory (breathing) problems. Being overweight may also cause a person to feel sad or be treated differently by others. The best way to lose weight is to eat fewer calories and get regular exercise. Eating more caloriesthan you need will cause you to gain weight. Try to cut down your calories by 500 calories per day.For example, cut down on one soda (about 150 calories), a small bag of regular potato chips (about 150 calories) and one chocolate bar (about 250 calories). For most people, this change will result in a slow weight loss of about one pound a week. Exercise (for example, walk, swim, or bicycle) for at least 30 minutes on most days of the week. You will be more likely to keep weight off if you make lifelong lifestyle changes. Aim for a slow, steady weight loss. Losing even a small amount of weight can lower your risk of health problems. Ask your dietitian, coat check attendant or doctor about a weight loss goal that is right for you. Safe Use of Controlled Substances Taking a medicine may be an important part of your treatment. Your body should heal faster if you take medicine safely. Some medicines are called Controlled Substances. This means their use is controlled by law. Some of these can harm you if you do not take them safely. What can I do to make sure I take my medicine safely? Follow the instructions we give you for how to take your medicine. We will give you an instruction sheet for each of your medicines. Ask your doctor or nurse if you do not get these instructions. Some medicines make you sleepy or cloud your thinking. Do not drive, use heavy machines or do dangerous activities while taking these medicines. Read the label on the bottle each time you take your medicine. Do not take your medicine with alcohol or other sedatives. Do not take medicine after the expiration date. It is against the law to sell your medicine or share it with others. Do not drive while using your medicine. How should I store my medicine? Store it in a safe place. This will keep others from taking your medicine and help you keep track of it. Store controlled substances in a cabinet or container that you can lock. Keep it in a place that is cool, dry and out of direct sunlight. Do not leave it in the car. Do not store in a refrigerator or freezer, unless your doctor tells you to. Call your doctor right away if your medicine is lost or stolen. How should I dispose of medicine that is or no longer needed? You may have medicine left over that you do not need or should not take. You must dispose of it theright way to protect yourself and others. You can ask your local pharmacist how to dispose of them.You can also visit these Web sites to learn more about disposal of controlled substances: Drug Enforcement Agency (JANE): http://www.deadiversion.[employer].gov/drug_disposal/takeback/index.htm National Association of Drug Diversion Investigators (NADDI): http://rxdrugdropbox.org/ [place] Office of Drug Control Policy: http://odcp.[place].gov/Prescription+Drug+Drop+Box+Sites.htm Are there concerns about or ? Before you take a medicine, tell your doctor if you are or plan to get . This could harm your baby. Tell your doctor if you breastfeed. Medicine in breast milk may be bad for your child. What if I have low or impaired vision? If you have vision problems, take extra care with your medicine. Wear your glasses when you take your medicine. Do not take medicine in the dark. What are the signs of overdose? Some controlled substances may cause breathing problems if you take more than your doctor recommends. This may lead to serious health problems or even . You and your caregivers should watch for the following signs of overdose. Slurred speech, confusion or stumbling Feeling dizzy or faint Acting drowsy or groggy Unusual snoring, gasping or snorting during sleep Hard to wake up or keep awake What should I or my caregiver do if I overdose? You or your caregiver should call 911 if you have any of these problems: Cannot wake up Cannot talk after waking up Shortness of breath, slow or light breathing, or breathing has stopped Heartbeat is slow or stopped Gurgling noise comes from the mouth or throat Body is limp or seems lifeless Face is pale or clammy Fingernails or lips look blue or purple What is a FELICE report? FELICE is a system that tracks prescriptions of controlled substances in [place]. The FELICE report tells your doctor if you have been prescribed controlled substances in the past. Doctors must get a FELICE report before prescribing controlled substances. What can I do if the information in my FELICE report is wrong? You or your doctor may contact the dispenser who reported the information to [facility]. If the dispenser agrees that the information should be changed, he or she can fix the FELICE report. However, the dispenser may certify that the report is correct. If that is the case, you or your doctor may then call the [place] Drug Enforcement and Professional Practices Branch at .This will start an investigation of the error. Tips for Quitting Tobacco ([place]) Tobacco and secondhand smoke can cause health problems such as cancer or heart and lung disease. They also make it harder for you to get better after an illness or surgery. Tobacco and tobacco smoke have more than 4000 chemicals. They can hurt you and those near you. Know your ???triggers?? Triggers are danger situations where you have a strong urge to use tobacco. If you know them, you can deal with them. Avoid places where you will see people use tobacco. This is very important when you first start to quit. Plus, secondhand smoke is bad for you. Change habits that give you the urge to use tobacco. If you smoked in the car, drink water instead.If you used tobacco after meals, try taking walks. Stress, anger or sadness can cause you to crave tobacco. Fight the urge by thinking of things that make you relaxed or happy - like your favorite song. The urge will often pass in a few minutes. How to cope with nicotine withdrawal Nicotine in tobacco is very addictive. Nicotine withdrawal can put you in a bad mood and cause you to crave tobacco. This can last for weeks after you quit. There are medicines that can ease these feelings. We can help our patients fight the urge to use tobacco. While you are here, your doctor can get you medicines, nicotine patches or gum. Talk to your doctor about which one is best for you. Let us help you quit You do not have to spend a lot of money to get help. You may even find help for free. Support groups: Your local health department may offer these. 's resources to help you quit: http://www.[facility]/TobaccoFree/ - Click on the Quit Here! tab. A telephone quit line: (6-969-XJLLVYW) Web sites: www.smokefree.gov, www.becomeanex.org, www.[employer] Tobacco Treatment Counselors: Call 226-917-7246. Medicare and Medicaid pay for this. employees, retirees, and their spouses or sponsored dependents can get free nicotine replacementtherapy and coaching. Visit www.[facility]/HR/Wellness/consults.html. [facility]: Free pamphlets on quitting tobacco, secondhand smoke and other health topics. Tell your doctor or nurse if you are want to know more. We can help! You can quit! It is hard to quit tobacco. Most people try to quit a few times before they stay quit for good. It will be easier to quit if you can relax and stay calm in times of stress. Quitting tobacco saves youmoney and your health! documented in this encounter Medications at Time of Discharge acetaminophen (Tylenol) 500 MG tablet Take 2 tablets by mouth every 6 hours as needed. HYDROcodone-aceta minophen ([place]) 5-325 MG tablet Take 1 tablet by mouth every 6 hours as needed for severe pain. 10 tablet 08/02/2025 ondansetron (Zofran) 4 MG tablet Take 1 tablet by mouth every 8 hours as needed for nausea or vomiting. 20 tablet 08/02/2025 documented as of this encounter Miscellaneous Notes * Kaley Gonzalez - Beverly Gonzalez RN - 08/02/2025 4:45 PM EDT Images from the original note were not included. 777 Home Care after Eye Removal (Enucleation) How will I care for myself after surgery? Cold compress. Keep cold on your wound as much as you can for 2-3 days. Do not apply ice directly on the skin. You can use either: ? A folded washcloth soaked in ice water and wrung out ? A bag of frozen peas The first week after surgery. ? Do not rub near the incision. ? Do not get water on the incision. ? Do not lift anything that weighs more than 15 lbs. Eye ointment. You should get a tube of eye ointment after surgery. ? Do not rub it on. Apply it straight from the tube. ? Apply it to the stitches 2 times a day. ? The ointment is eye-friendly. This may cause blurred vision, but it should go away once you stop using the ointment. Conformer. This is a plastic shell that goes inside the eyelid after surgery. It helps the eyelid keep its shape. If it falls out: ? Replace it like you would a contact lens. You may use ointment as lubricant. ? Place the lubricated shell under the upper eyelid first. Eye shield. Wear it at bedtime over your surgery area. Your doctor will tell you when to stop. Eye patch. If you have a patch taped over your surgery area, do not use cold compresses or ointment. Leave the patch alone. Your doctor will remove the patch at your follow up. Sleeping or lying down. Always keep your head raised above your chest. This will help prevent swelling. ? Keep your head raised on 2-3 pillows. ? Make sure your eyelid or cheek does not rub on anything. Bleeding. It is normal to have some ooze or drainage from the wound. Do not try to clean dry blood from the wound. This may cause more bleeding. Call the doctor if bleeding does not stop. How can I control pain? ? Extra Strength Tylenol is the only pain medicine needed after most eyelid surgeries. ? For more complex surgeries, the doctor may prescribe a pain medicine. In that case, you may choose to take either the prescription pain medicine or the Tylenol, but not both together. ? Unless your doctor says otherwise, you should avoid all other pain medicines for at least 1 week after surgery. So the list of medicines to avoid includes aspirin, ibuprofen, Advil, Nuprin, Motrin,Bufferin, Anacin and Excedrin. ? You should keep taking your other prescribed medicines (except blood thinners) as ordered. How do I avoid problems after anesthesia? Most of these surgeries are done with local anesthesia and IV sedation. In rare cases, patients have nausea after this anesthesia. To avoid this, follow these tips: ? Start by drinking only clear liquids after surgery. Some examples are water, sports drinks, 7-Up,and gloria randa. ? If you handle clear liquids with no stomach sickness, you may start eating your normal foods. ? Avoid ?fatty foods? the day of your surgery or if you have any stomach sickness. Some examples are milk, pizza and hamburgers. When do I follow up with my doctor? ? We will schedule a follow up visit for you. If your swelling is better, the doctor may remove thestitches but leave the plastic shell (conformer) in place. ? Then you will have a second visit 6-8 weeks after surgery. The doctor will check the results of the surgery. You will get a new prosthetic eye, or your old prosthetic eye will be modified. When should I call the doctor? Call the doctor?s office right away if you have any of these: ? Signs of infection: skin near the wound is red, swollen, warm or painful; or drainage smells bad ? Bleeding that does not stop o It is normal to have some oozing or drainage. o Do not clean dried blood from the incision - this may cause more bleeding. ? Temperature over 100??F ? Very bad pain that is not help by medicine ? Sudden loss of vision - it is normal for vision to be a little blurry On weekdays from 8 am to 5 pm you can call the Eye Clinic at [phone] Mathew's investment officer at [phone]. Nights, weekends or holidays, call [phone] and ask for the eye surgeon aegis console operator track. 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 POSTOPERATIVE DIAGNOSIS: left blind painful eye. PROCEDURES PERFORMED: 1. left enucleation with 20 mm acrylic orbital implant insertion wrapped in donor sclera with extraocular muscles attached. 2. left temporary tarsorrhaphy. ATTENDING SURGEON: Sridhar Mathew MD, who was present, scrubbed, and actively participated in all escalante portions of the procedure. BUSINESS SERVICES ASSOCIATE SURGEON: Medina Gaxiola MD; Kaveh Fuller MD ANESTHESIA: General anesthesia via LMA placement. ESTIMATED BLOOD LOSS: Approximately 5 mL. SPECIMENS: left globe was sent to Pathology for further analysis. COMPLICATIONS: None. DISPOSITION: Stable and sent to PACU. INDICATIONS FOR PROCEDURE: The patient has a left blind painful eye. DESCRIPTION OF PROCEDURE: After informed consent was obtained and the patient was identified in the preoperative holding area as Zaynab Lincoln, The patient was taken to the operating room and placed in supine position. General anesthesia was undertaken and a local anesthetic and epinephrine mixture was injected into the left perilimbal subconjunctival area for 360 degrees. The patient was then prepped and draped in the usual standard sterile ophthalmic fashion. It should be noted that a timeout was performed prior to beginning this procedure, and after identifying the patient by their name, hospital number and operative sites, all were in agreement. A corneal eye shield with eye antibiotic ointment inside the eye shield was placed over the right eye and a lid speculum was placed between the left upper and lower eyelids. A left 360-degree limbal peritomy was performed with Nataly scissors dissection. The left medial rectus muscle was isolated with a muscle hook and a double-armed 5-0 Vicryl suture was placed through its superior and inferior poles, and it was detached from the globe with Nataly scissors dissection. The same procedure was carried out on the other 3 rectus muscles. The superior and inferior oblique muscles were individually isolated with a muscle hook, and each was detached from the globe with Nataly scissors dissection. An enucleation snare was placed around the left optic neurovascular bundle, which was then severed and the left globe was removed from the operative field and sent to Pathology for further analysis. Bipolar Electrocauterization was used to obtain hemostasis. A 20 mm acrylic orbital implant was deemed to be the appropriate sized implant, and a 20 mm acrylic orbital implant was wrapped in a donor scleral shell with relaxing incisions that were made with the straight iris scissors in the donor scleral shell 180 degrees apart that were each then closed with interrupted 5-0 Vicryl suture. The donor scleral shell containing the orbital implant was inserted into the left intraconal space with the optic nerve end of the donor scleral shell facing anteriorly. The rectus muscles were attached in their normal anatomic locations to the donor scleral shell. Tenon's fascia was closed with interrupted buried 5-0 Vicryl sutures, and the conjunctiva was closed with a running 6-0 Vicryl suture. A medium size conformer with eye antibiotic ointment inside the conformer was placed in the left anophthalmic socket and the eyelid speculum was removed. A 4-0 silk suture was placed between the left upper and lower eyelids and tied on the upper eyelid with the temporal tarsorrhaphy suture. The right corneal eye shield was removed and eye antibiotic ointment was applied to the surgical wounds. The patient was awoken from anesthesia and taken to the postoperative care unit. Postoperative instructions for followup care were outlined and our contact details were available. * H&P - Sridhar Mathew MD - 08/02/2025 10:09 AM EDT Images from the original note were not included. History Of Present Illness Zaynab Lincoln is a 80 y.o. male presenting with malignant melanoma of choroid of left eye Past Medical History He has a past medical history of Dental disease and HL (hearing loss). Surgical History He has a past surgical history that includes Skin cancer excision. Family History Family History[1] Social History He reports that he quit smoking about 50 years ago. His smoking use included cigarettes. He has been exposed to tobacco smoke. He has never used smokeless tobacco. He reports that he does not currently use alcohol. He reports that he does not currently use drugs. Occupational History Occupational history[2] Employer: No address on file. Travel History Relevant International Travel History: Travel Screening Question Response Have you been in contact with someone who was sick? No / Unsure Do you have any of the following new or worsening symptoms? None of these Have you traveled internationally or domestically in the last month? No Travel History Travel since 07/03/25 No documented travel since 07/03/25 Relevant Domestic Travel History: see chart Immunizations reviewed VACCINE / DOSE Flu Tetanus Pneumovax Shingles Allergies Patient has no known allergies. Medications Current Medications[3] Review of Systems Constitutional: Negative. HENT: Negative. Eyes: Negative. Respiratory: Negative. Cardiovascular: Negative. Gastrointestinal: Negative. Endocrine: Negative. Genitourinary: Negative. Musculoskeletal: Negative. Skin: Negative. Allergic/Immunologic: Negative. Neurological: Negative. Hematological: Negative. Psychiatric/Behavioral: Negative. Physical Exam Vitals reviewed. Constitutional: Appearance: Normal appearance. Eye: Left choroidal melanoma HENT: Head: Normocephalic. Nose: Nose normal. Cardiovascular: Rate and Rhythm: Normal rate and regular rhythm. Pulmonary: Effort: Pulmonary effort is normal. Abdominal: General: Abdomen is flat. Musculoskeletal: Cervical back: Neck supple. Skin: General: Skin is dry. Neurological: Mental Status: She is oriented to person, place, and time. Psychiatric: Mood and Affect: Mood normal. Last Recorded Vitals There were no vitals taken for this visit. Relevant Results reviewed Assessment and Plan Left choroidal melanoma Proceed with Left eye enucleation with orbital implant insertion and whole donor sclera with temporary tarsorrhaphy [1] Family History Problem Relation Name Age of Onset Heart disease Mother Cancer Father Cancer Sister Cancer Brother [2] [3] No current facility-administered medications for this encounter. Current Outpatient Medications Medication Sig Dispense Refill acetaminophen (Tylenol) 500 MG tablet Take 2 tablets by mouth every 6 hours as needed. * Preprocedure Instructions - Liliana Gilliland RN - 07/31/2025 9:14 AM EDT Home Medication Instructions Current Medications Medication Instructions acetaminophen (Tylenol) 500 MG tablet Take as needed General Preoperative Instructions You will be called the business day before surgery with your arrival time Do not eat after midnight. Encouraged to drink clear liquids (no carbonated drinks, only water, apple juice, or clear colored gatorade- no red, blue or purple) up until 2 hours prior to arrival time. No alcohol or smoking prior to surgery Arrive on time to avoid delays Parking/Registration procedure explained You MUST have a responsible adult available for transport to and from hospital Visitation policy for the day of surgery reviewed Bring insurance card, photo ID, along with power of criminal defense attorney, guardianship or advanced directives if applicable Do not bring money, jewelry or other valuables Hibiclens bathing instructions reviewed if applicable Notify surgeon of fever, illness, any changes or if you decide not to have surgery * PAT Phone Note - Liliana Gilliland RN - 07/31/2025 9:13 AM EDT TRISTON Lincoln is a 80 y.o. 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 Date scheduled is 08/02/2025. Past Medical History[1] Family History[1] Social History[1] SURGICAL HISTORY: Surgical History[1] Allergies[1] MEDICATIONS: Current Medications[1] Liliana Gilliland RN [1] Past Medical History: Diagnosis Date Dental disease missing teeth HL (hearing loss) [1] Family History Problem Relation Name Age of Onset Heart disease Mother Cancer Father Cancer Sister Cancer Brother [1] Social History Tobacco Use Smoking status: Former Current packs/day: 0.00 Types: Cigarettes Quit date: 07/18/1975 Years since quittin.0 Passive exposure: Past Smokeless tobacco: Never Vaping Use Vaping status: Never Used Substance Use Topics Alcohol use: Not Currently Drug use: Not Currently [1] Past Surgical History: Procedure Laterality Date SKIN CANCER EXCISION Pt unsure when procedure was done. [1] No Known Allergies [1] No current facility-administered medications for this encounter. Current Outpatient Medications: acetaminophen, Take 2 tablets by mouth every 6 hours as needed. 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) documented in this encounter Administered Medications Inactive Administered Medications - up to 3 most recent administrations Medication Order MAR Action Action Date Dose Rate Site acetaminophen (Tylenol) tablet 1,000 mg 1,000 mg, Oral, Once, 1 dose, On Gretta 08/02/25 at 1515, Routine, Holding - Preprocedure Given 08/02/2025 2:40 PM EDT 1,000 mg aprepitant (Emend) capsule 40 mg 40 mg, Oral, Once, 1 dose, On Gretta 08/02/25 at 1515, Routine, Holding - Preprocedure Given 08/02/2025 2:40 PM EDT 40 mg fentaNYL (Sublimaze) injection 25 mcg 25 mcg, Intravenous, Every 5 min PRN, 3 doses, Starting on Gretta 08/02/25 at 1644, Until Gretta 08/02/25 at 2024, Routine, Recovery (Phase I only), DVPRS >/= 5, CPOT >/= 3, FLACC >/= 4, PAINAD >/= 4 Given 08/02/2025 5:20 PM EDT 25 mcg HYDROmorphone (Dilaudid) injection 0.25 mg 0.25 mg, Intravenous, Every 10 min PRN, 3 doses, Starting on Gretta 08/02/25 at 1644, Until Gretta 08/02/25 at 2024, Routine, Recovery (Phase I only), DVPRS >/= 5, CPOT >/= 3, FLACC >/= 4, PAINAD >/= 4 Given 08/02/2025 5:10 PM EDT 0.25 mg lactated Ringer's infusion 100 mL/hr, Intravenous, Continuous, Starting on Gretta 08/02/25 at 1515, Until Gretta 08/02/25 at 2024, Routine New Bag 08/02/2025 3:30 PM EDT naloxone (Narcan) injection 0.4 mg 0.4 mg, Intravenous, As needed, Starting on Gretta 08/02/25 at 1644, Until Gretta 08/02/25 at 2024, Routine, Recovery (Phase I only), respiratory depression ondansetron (Zofran) injection 4 mg 4 mg, Intravenous, Once as needed, 1 dose, Starting on Gretta 08/02/25 at 1644, Until Gretta 08/02/25 at 2024, Routine, Recovery (Phase I only), nausea, vomiting oxyCODONE (Roxicodone) immediate release tablet 5 mg 5 mg, Oral, Every 30 min PRN, 2 doses, Starting on Gretta 08/02/25 at 1644, Until Gretta 08/02/25 at 2024, Routine, Recovery (Phase I only), DVPRS >/= 5, CPOT >/= 3, FLACC >/= 4, PAINAD >/= 4 Given 08/02/2025 5:30 PM EDT 5 mg sodium chloride 0.9 % flush 10 mL 10 mL, Intravenous, As needed, Starting on Gretta 08/02/25 at 1421, Until Gretta 08/02/25 at 2024, Routine, Holding - Preprocedure, line care documented in this encounter Active and Recently Administered Medications Times are shown in EDT. Scheduled Medication Order 07/31/2025 08/01/2025 08/02/2025 acetaminophen (Tylenol) tablet 1,000 mg (COMPLETED) 1,000 mg, Oral, Once, 1 dose, On Gretta 08/02/25 at 1515, Routine, Holding - Preprocedure 1440 (Given - Provid er: Loraine Beebe RN) aprepitant (Emend) capsule 40 mg (COMPLETED) 40 mg, Oral, Once, 1 dose, On Gretta 08/02/25 at 1515, Routine, Holding - Preprocedure 1440 (Given - Provid er: Loraine Beebe RN) Continuous Medication Order 07/31/2025 08/01/2025 08/02/2025 lactated Ringer's infusion 100 mL/hr, Intravenous, Continuous, Starting on Gretta 08/02/25 at 1515, Until Gretta 08/02/25 at 2024, Routine 1530 (New Bag - Prov ider: Daniela Kowalski CRNA)1637 (Anesthesia Volume Adjustment - Provider: Daniela Kowalski CRNA) PRN Medication Order 07/31/2025 08/01/2025 08/02/2025 erythromycin (Romycin) 5 MG/GM ophthalmic ointment (CANCELED) As needed, Starting on Gretta 08/02/25 at 1647, Until Gretta 08/02/25 at 1647, Routine 1647 (Given - Provid er: Medina Gaxiola MD) fentaNYL (Sublimaze) injection 25 mcg 25 mcg, Intravenous, Every 5 min PRN, 3 doses, Starting on Gretta 08/02/25 at 1644, Until Gretta 08/02/25 at 2024, Routine, Recovery (Phase I only), DVPRS >/= 5, CPOT >/= 3, FLACC >/= 4, PAINAD >/= 4 1720 (Given - Provid er: Beverly Gonzalez RN) HYDROmorphone (Dilaudid) injection 0.25 mg 0.25 mg, Intravenous, Every 10 min PRN, 3 doses, Starting on Gretta 08/02/25 at 1644, Until Gretta 08/02/25 at 2024, Routine, Recovery (Phase I only), DVPRS >/= 5, CPOT >/= 3, FLACC >/= 4, PAINAD >/= 4 1710 (Given - Provid er: Beverly Gonzalez RN) naloxone (Narcan) injection 0.4 mg 0.4 mg, Intravenous, As needed, Starting on Gretta 08/02/25 at 1644, Until Gretta 08/02/25 at 2024, Routine, Recovery (Phase I only), respiratory depression ondansetron (Zofran) injection 4 mg 4 mg, Intravenous, Once as needed, 1 dose, Starting on Gretta 08/02/25 at 1644, Until Gretta 08/02/25 at 2024, Routine, Recovery (Phase I only), nausea, vomiting oxyCODONE (Roxicodone) immediate release tablet 5 mg 5 mg, Oral, Every 30 min PRN, 2 doses, Starting on Gretta 08/02/25 at 1644, Until Gretta 08/02/25 at 2024, Routine, Recovery (Phase I only), DVPRS >/= 5, CPOT >/= 3, FLACC >/= 4, PAINAD >/= 4 1730 (Given - Provid er: Beverly Gonzalez RN) sodium chloride 0.9 % flush 10 mL(Linked Group 1) 10 mL, Intravenous, As needed, Starting on Gretta 08/02/25 at 1421, Until Gretta 08/02/25 at 2024, Routine, Holding - Preprocedure, line care Linked Groups Order Group 1: Insert peripheral IV (CANCELED) Once, On Gretta 08/02/25 at 1422, For 1 occurrence, Holding - Preprocedure And Saline lock IV (CANCELED) Once, On Gretta 08/02/25 at 1422, For 1 occurrence, Holding - Preprocedure And sodium chloride 0.9 % flush 10 mLJump to med 10 mL, Intravenous, As needed, Starting on Gretta 08/02/25 at 1421, Until Gretta 08/02/25 at 2024, Routine, Holding - Preprocedure, line care documented in this encounter Additional Health Concerns Active Problems Noted Date Diagnosed Date Autogenerated Problem 08/03/2025 Assessment Noted Time A fall risk assessment has been complete d for the patient 07/18/2025 12:58 PM EDT A Body Mass Index follow-up plan has been documented for the patient 07/30/2025 12:13 PM EDT documented as of this encounter Care Teams Supervisor Veneer Relationship Specialty Start Date End Date Pcp, [place] [address] PCP - General Family Medicine 07/26/25 documented as of this encounter
--- OUTSIDE RECORDS SUMMARY | 2025-08-02 12:40 | XMS_ITS | Encounter Summary ---
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] Procedures [place] REMOVE EYE W MUSC TO IMPLANT Left enucleation with orbital implant insertion Sridhar Mathew MD [address] [employer] [address] [address] Phone: tel: fax: [facility] [address] [place] [phone] Phone: tel: Referral ID Status Reason Start Date Expiration Date Visits Re quested Visits Authorized [id number] 1 1 Encounter Details Date Type Department Care Team (Late st Contact Info) Description 08/02/2025 1:40 PM EDT - 08/02/2025 3:10 PM EDT Surgery [facility] [address] [place] [phone] Sridhar Mathew MD [address] [employer] [address] [address] Left enucleation with orbital implant insertion [24406 (CPT )] Surgery Details Date/Time Status Location OR Service Patient Class Case Class Case Type Trauma Case? 08/02/2025 1:40 PM Posted [facility]ELISSA FONTAINE [place] [address] [place] [address] Outpatient Surgery E-Electi ve Panel 1 Procedure [...] Suicidal Behavior (Lifetime) No 2:31 PM EDT Beebe, Loraine M, RN documented as of this encounter Discharge [...] Room or call the Emergency Department at [phone]. Smoking and its health risks Smoking is [...] help quitting smoking, call the National Cancer [place]'s Quitline toll free at or ask your doctor for help. Weight Management Weighing too much is not good for your health. Being overweight increases your risk of health conditions such as heart problems, high blood pressure, type 2 diabetes, and certain types of cancer. Being overweight can also increase your risk for osteoarthritis (io-beo-si-hzv-FYIC-ofs) (joint disease), sleep apnea (abnormal breathing at [...] risk of health problems. Ask your dietitian, director human services or doctor about a weight loss goal [...] Association of Drug Diversion Investigators (NADDI): http://rxdrugdropbox.org/ [place] Office of Drug Control Policy: http://odcp.[place].gov/Prescription+Drug+Drop+Box+Sites.htm Are there concerns about or ? Before [...] that tracks prescriptions of controlled substances in [place]. The FELICE report tells your doctor if you have been prescribed controlled substances in the past. Doctors must get a FELICE report before prescribing controlled substances. What can I do if the information in my FELICE report is wrong? You or your doctor may contact the dispenser who reported the information to [employer]. If the dispenser agrees that the information should be changed, he or she can fix the FELICE report. However, the dispenser may certify that the report is correct. If that is the case, you or your doctor may then call the [place] Drug Enforcement and Professional Practices Branch at [...] Your local health department may offer these. [employer]'s resources to help you quit: http://www.[facility]/TobaccoFree/ - Click on the Quit Here! tab. A telephone quit line: (1-768-UERCFWH) Web sites: www.smokefree.gov, www.[employer], www.[employer] Tobacco Treatment Counselors: Call 047-504-4099. Medicare and Medicaid pay for this. employees, retirees, and their spouses or sponsored dependents can get free nicotine replacementtherapy and coaching. Visit www.[facility]/HR/Wellness/consults.html. [facility]: [...] every 6 hours as needed. HYDROcodone-aceta minophen ([place]) 5-325 MG tablet Take 1 tablet by mouth every 6 hours as needed for severe pain. 10 tablet 08/02/2025 ondansetron (Zofran) 4 MG tablet Take 1 tablet by mouth every 8 hours as needed for nausea or vomiting. 20 tablet 08/02/2025 documented as of this encounter Miscellaneous Notes * Beverly Kuo, RN - 08/02/2025 4:45 PM EDT Images [...] you can call the Eye Clinic at [phone] Mathew's front office representative at [phone]. Nights, weekends or holidays, call [phone] and ask for the eye surgeon location man. * Op Note - Sridhar Mathew MD - 08/02/2025 4:12 PM EDT Operative Note Date: 08/02/25 Location: [facility] OR Name: Zaynab Lincoln, : 1945, [...] in all escalante portions of the procedure. CANDY WRAPPING MACHINE OPERATOR SURGEON: Medina Gaxiola MD; Kaveh Fuller MD [...] Description 08/08/2025 11:15 AM EST Office Visit [facility] [address] [place] [address] Sridhar Mathew MD [address] [address] Pending Results Name Type Priority [...] Procedure Name Priority Date/Time Associated Diagnosis Comments [place] REMOVE EYE W MUSC TO IMPLANT 08/02/2025 [...] documented as of this encounter Care Teams Business Services Vice President Relationship Specialty Start Date [place] [address] PCP - General Family Medicine 07/26/25 documented as of this encounter
--- OUTSIDE RECORDS SUMMARY | 2025-08-02 14:59 | XMS_ITS | Encounter Summary ---
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] Procedures SD REMOVE EYE W MUSC TO IMPLANT Left enucleation with orbital implant insertion Sridhar Mathew MD [address] [place] [phone] Phone: tel: fax: TOM[facility]A [facility] [address] [place] [phone] Phone: tel: Referral ID Status Reason Start Date Expiration Date Visits Re quested Visits Authorized [id number] 1 1 Encounter Details Date Type Department Care Team (Late st Contact Info) Description 08/02/2025 3:59 PM EDT Anesthesia Event [facility] [address] [place] [phone] Mayela Banerjee MD [address] [place] [address] Mariam Cuevas MD [address] [place] [phone] Anesthesia Record Procedure Summary Procedure Name [...] Tolerated well; Removal Date: 08/02/25; Removal Time: 18108/02/25 1449 by Loraine Garcia RN 08/02/25 181 by Beverly Gonzalez RN Supraglottic Airway Placement Date: 07/06 ; Placement Time: 1604 (created via procedure documentation); Mask Ventilation: 1; Comments: Atraumatic, dentition unchanged; Removal Date: 08/02/25; Removal Time: 164208/02/25 1604 by Daniela Kowalski CRNA 08/02/25 1643 [...] Risk Indicated 08/02/2025 2:31 PM EDT Loraine Garcia RN * Question Answer Date of Assessment Author 1. Wish to be (Past 1 Month) No 025 2:31 PM EDT Loraine Garcia RN 2. Non-Specific Active Suici danelle Thoughts (Past 1 Month) No 08/02/2025 2:31 PM EDT Tim Garcia RN 6. Suicidal Behavior (Lifetime) No 2:31 PM EDT Loraine Garcia RN documented as of this encounter Miscellaneous [...] and Staff Patient location during procedure: OR SENIOR DIRECTOR FINANCE: Daniela Kowalski CRNA Performed: SENIOR DIRECTOR FINANCE Patient Condition Indications for airway management: anesthesia [...] ABG No results found for: PHART , XOB1DEY , PO2ART , SO2ART , BEART , GEE5HKY , HCTART , SODIUMART , POTASSIUMART , POCTCL , POCGLU , IONCALART , LACTATE No results found for: PH , PCO2 , PO2 , Z8XVCAUH , BASEEXC , HCTSYR , KSYR , CLSYR , GLUSYR , CAION , LACTATE ECHO No echocardiogram results found for the past 12 months PFTs No results found for: KEZ5TUK , MDH1UGLJ , WOD4DVQ , FVCPRED BP Readings from Last 5 [...] Plan ASA 1 Plan was reviewed with: SENIOR DIRECTOR FINANCE Anesthesia technique(s) discussed with the patient/family: general [...] Mother Cancer Father Cancer Sister Cancer Brother Annette Hypertension Neg Hx [3] Social History Tobacco [...] OR for Left eye enucleation with orbital implant insertion on 08/02/25 [9] [10] PRN medications: lidocaine, [...] Description 08/08/2025 11:15 AM EST Office Visit [facility] [address] [place] [address] Sridhar Mathew MD [address] [phone] documented as of this encounter Goals Goal Patient Goal Type Associated Problems Recent Progress Patient-Stated? Author Autogenera kaylie Goal Care Plan Autogenerated Problem No RigobertoZeferino flowersLeslie Luli documented as of this encounter Procedures Procedure [...] and Staff Patient location during procedure: OR SENIOR DIRECTOR FINANCE: Daniela Kowalski CRNA Performed: LILO Patient Condition [...] documented as of this encounter Care Teams Bulk Gas Specialist Relationship Specialty Start Date End Date Pcp, [place] [address] PCP - General Family Medicine 07/26/25 documented as of this encounter
[2025-08-06 09:56] VITALS: BP 184/90; PULSE 67; RESP 18; TEMP 36.6; O2SAT 97; BMI 27.4
--- NOTE | 2025-08-06 09:58 | XR_ITS ---
FINAL REPORT CLINICAL HISTORY: Complaint of midsternal pain that began this morning. Also complains of headache. COMPARISON: None FINDINGS: A portable view of the chest is obtained. Low lung volumes are present. Cardiac and mediastinal silhouettes are normal. There is bibasilar atelectasis. There is no pleural effusion or pneumothorax. IMPRESSION: Bibasilar atelectasis, otherwise, no acute process on this portable exam. Reviewed, Interpreted and Dictated by Alondra Jackson MD Transcribed by Jazmin Castellano Authenticated and [facility]
--- NOTE | 2025-08-06 09:58 | HMH.EDGENADL ---
Discharge Plan Disposition Patient Disposition: Xfer Other Prescriptions Prescriptions: No Action No Known Home Medications Referrals Follow up/Referrals: Claudio Guy MD [Primary Care Provider, Family Practice] - See instructions Clinical Impressions Clinical Impression: Eye drainage, Atrial fibrillation with slow ventricular response Print Language Print Language: Japanese Discharge ED Provider: Leonel Lara General Adult HPI General Chief complaint: Chest Pain Stated complaint: Chest Pain Time Seen by Provider: 08/06/25 09:58 History of Present Illness HPI narrative: This patient is a 80-year-old male with past medical history of 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 Patient reports the chest pain began yesterday. The patient reports that after his operation he had been taking a hydrocodone which caused significant nausea, he was switched from hydrocodone to Tylenol due to multiple episodes of vomiting daily postop. Increase in chest pain coincided with both increased vomiting. Patient reports that he has had pain in the head over the last 24 hours. He began to have yellow drainage from the affected eye socket today. On my initial exam the patient is mildly uncomfortable but hemodynamically stable, he has purulent drainage from his socket, he has a suture holding his lid closed. Related Data Home Medications ?Medication ?Instructions ?Recorded ?Confirmed No Known Home Medications 12/26/18 02/19/25 Allergies Allergy/AdvReac Type Severity Reaction Status Date / Time No Known Allergies Allergy Verified 02/19/25 14:51 PFSH [facility] Disclaimer: The information contained in this section may have been updated after the patient was seen, as this information can be updated by other users. Medical History Skin cancer Hx of skin cancer, basal cell Surgical History Past history of tetralogy of Fallot, post surgical repair Family History Other Cancer Social History Smoking Status: Never smoker alcohol intake: never substance use type: denies use current occupational status: retired Travel in the last 8 weeks?: None household members: family housing: house marital status: education level: middle school Have you lived/traveled outside US in past 30 days?: No Contact w/someone who lives/traveled outside US past 30 days?: No Exposure to someone with infectious disease in past 14 days?: No Do you have a fever (greater than 100.4 F or 38 C)?: No Have you tested positive for COVID-19?: No Exposed to someone with COVID-19 in past 14 days?: No Do you have a sore throat?: No Do you have a cough?: No Do you have any weakness?: No Do you have any diarrhea?: No Are you experiencing any unusual bleeding?: No Do you have any muscle aches/pain?: No Do you have any abdominal pain?: No Are you experiencing loss of taste or smell?: No Other Medical History Have you received the Pneumonia Vaccine: No ROS Obtained: Yes All systems reviewed & no additional complaints except as documented Physical Exam General General appearance: alert and in no apparent distress Head Head exam: atraumatic and normocephalic Eye Eye exam: Present normal appearance, PERRL and EOMI ENT ENT exam: Present normal exam and normal external ear exam Neck Neck exam: Present normal inspection, full ROM and trachea midline Chest Chest inspection: Present normal inspection and symmetric chest wall rise; Absent tenderness Respiratory Respiratory exam: Absent respiratory distress Cardiovascular Cardiovascular exam: Present regular rate, normal rhythm and other (appears warm and well perfused) Abdominal Exam Abdominal exam: Absent distention or tenderness exam: Absent deferred Extremities Exam Extremities exam: Present normal inspection and full ROM Neurological Exam Neurological exam: Present alert and oriented X3 Psychiatric Psychiatric exam: Present normal affect Skin Skin exam: Present warm and dry Medical Decision Making Medical Records Medical records reviewed: Yes I reviewed the patient's medical records. Screening: Per USPSTF and CDC recommendations, given the prevalence of disease in our region, it is our hospital?s policy to screen for HIV and viral Hepatitis for all patients aged 18 and over and those with ongoing risk factors. Deon Inquiry Pt receiving controlled substance: No Deon was queried for this patient: No Vital Signs: 08/06/25 09:56 08/06/25 10:31 Temperature 97.9 F Temperature Source Oral Pulse Rate [Radial] 67 Respiratory Rate 18 10 L Blood Pressure 152/102 H Blood Pressure [Right Arm] 184/90 H Blood Pressure Mean 118 Blood Pressure Mean [Right Arm] 121 Blood Pressure Source [Right Arm] Automatic Cuff Blood Pressure Position [Right Arm] Sitting 02 Sat by Pulse Oximetry 97 98 Oxygen Delivery Method Room Air Lab Data Lab results reviewed: Yes I reviewed the patient's lab results. Lab Results 08/06/25 10:03: WBC 9.8, RBC 4.82, Hgb 13.8 L, Hct 42.0, MCV 87.1, MCH 28.6, MCHC 32.9, RDW 13.5, Plt Count 272, MPV 10.1, Neut % (Auto) 83.7 H, Lymph % (Auto) 8.5 L, [place] % (Auto) 7.2, Eos % (Auto) 0.1, Baso % (Auto) 0.2, Neut # (Auto) 8.2 H, Lymph # (Auto) 0.8, [place] # (Auto) 0.7, Eos # (Auto) 0.0, Baso # (Auto) 0.0, Sodium 131 L, Potassium 4.1, Chloride 98, Carbon Dioxide 26, Anion Gap 11.1, BUN 16, Creatinine 1.00, Estimated Creat Clear 61, Estimated GFR 72, Est GFR ( Amer) 87, Glucose 123 H, Calcium 10.1, Total Bilirubin 0.9, AST 25, ALT 24, Alkaline Phosphatase 125, Troponin I < 0.01, Total Protein 7.4, Albumin 4.2, Globulin 3.2, Albumin/Globulin Ratio 1.3 08/06/25 10:03 08/06/25 10:03 Orders (Tests/Meds): ED MEDICATIONS Discontinued Medications Generic Name Dose Route Start Last Admin Trade Name Ang PRN Reason Stop Dose Admin Acetaminophen 1,000 mg 08/06/25 10:59 08/06/25 11:04 Acetaminophen 1,000mg/100ml Vial IV 08/06/25 11:00 1,000 mg ONCE ONE Administration Aspirin 325 mg 08/06/25 09:58 08/06/25 10:08 Aspirin 325mg Tablet PO 08/06/25 09:59 325 mg ONCE ONE Administration Belladonna Alkaloids 60 ml 08/06/25 09:58 08/06/25 10:08 Belladonna Alkaloids 60 Ml Ml PO 08/06/25 09:59 60 ml ONCE ONE Administration Nitroglycerin 0.4 mg 08/06/25 09:58 Nitroglycerin 0.4mg Sl Tablet SL 08/06/25 09:59 ONCE ONE Ondansetron HCl 4 mg 08/06/25 12:00 08/06/25 12:03 Ondansetron 4mg/2ml Vial IV 08/06/25 12:01 4 mg ONCE ONE Administration ORDERS Category Date Time Status CT head/brain wo con Stat Cat Scan 08/06/25 11:24 Completed Chest XR -- portable [XR chest portable] Stat Exams 08/06/25 09:58 Completed CBC w/Auto Diff [Complete Blood Count Auto Diff] Stat Lab 08/06/25 10:03 Completed CMP [Comprehensive Metabolic Panel] Stat Lab 08/06/25 10:03 Completed HIV Combo Stat Lab 08/06/25 10:03 Received Hepatitis C Ab Qual. W/ RFX Stat Lab 08/06/25 10:03 Received Troponin I Q3H Lab 08/06/25 10:03 Completed Troponin I Q3H Lab 08/06/25 13:04 Received Medical Decision Narrative: MDM In summary, this 80-year-old male presents to the emergency department today with headache, chest pain. Initial evaluation the patient uncomfortable, hemodynamically stable. Differential diagnosis includes but is not limited to ACS, AR, postoperative infection, migraine, tension headache. Based on these concerns, I ordered a comprehensive laboratory and imaging workup. ECG personally interpreted by me demonstrates slow atrial fibrillation, no ST elevation. Patient received GI cocktail, Zofran for treatment. Labs personally reviewed and interpreted demonstrate no significant leukocytosis, no significant anemia, no significant elevation in inflammatory markers, initial troponin less than 0.01. X-rays personally interpreted by me demonstrate no acute findings within the chest. CT imaging personally interpreted by me demonstrate no acute intracranial findings. On arrival patient was noted to be in intermittent slow A-fib. The patient and family member are not aware of a history of this disorder. The patient intermittently Bradys into the 40s, when this occurs he remains mildly hypertensive and totally asymptomatic. Patient's chest pain significantly improved after GI cocktail. Given the fact that the chest pain coincided with multiple episodes of vomiting and a decrease in narcotic pain control I think it is most likely that the patient's chest pain was gastrointestinal in nature and due to esophageal irritation after vomiting. The patient reports that he had chest pain for 24 hours before arriving at the emergency department and so a negative troponin is very reassuring for decreased likelihood of cardiac involvement. Upon further questioning the patient reports that it is not his head that hurts but rather the inside of his eye socket. Given the persistent pain and purulent drainage we are concerned for postoperative complication versus infection. I made the decision to contact the transfer center for the [facility]. They were agreeable to accept the patient for evaluation by ophthalmology and continued monitoring of suspected new slow atrial fibrillation. Given that the patient and remained stable and comfortable while in the emergency department we were comfortable with the family taking the patient by personal vehicle. We warned the patient's and family of risks and they understood the risk of personal transport but were comfortable with driving on their own. Critical Care Critical Care Time Critical Care Time: No
[2025-08-06] MEDS: BELLADONNA ALKALOIDS 60 ML ML PO (10:08)
[2025-08-06] MEDS: ASPIRIN 325MG TABLET 325 MG PO (10:08)
[2025-08-06 10:10] LABS: Hematocrit 42.0 % (42.0-52.0); Hemoglobin 13.8 g/dL (14.1-18.0); Immature Granulocytes % 0.3 %; Mean Corpuscular HGB Conc 32.9 g/dL (31.8-35.4); Mean Corpuscular Hemoglobin 28.6 pg (27.0-31.2); Mean Corpuscular Volume 87.1 fl (80-94); Nucleated Red Blood Cells % 0 %; Platelet Count 272 K/mm3 (142-424); Red Blood Count 4.82 M/mm3 (4.60-6.20); Red Cell Distribution Width-SD 42.8 fL; White Blood Count 9.8 K/mm3 (4.8-10.8)
[2025-08-06 10:27] LABS: Alanine Aminotransferase 24 U/L (12-78); Albumin Level 4.2 g/dl (3.5-5.0); Albumin/Globulin Ratio 1.3 (1.1-1.8); Anion Gap 11.1 mEq/L (5-15); Aspartate Amino Transferase 25 U/L (17-59); Blood Urea Nitrogen 16 mg/dl (9-20); Calcium 10.1 mg/dl (8.4-10.2); Carbon Dioxide 26 mmol/L (22.0-30.0); Chloride 98 mmol/L (98-107); Creatinine Clearance Estimated 61 mL/min (50-200); Creatinine,Serum 1.00 mg/dl (0.66-1.25); Estimated Glomerular Filt Rate 72 ml/min (>60); GFR (African American) 87 ML/MIN (>60); Globulin 3.2 g/dL (1.3-3.2); Glucose 123 mg/dl (74-100); Potassium 4.1 mmoL/L (3.5-5.1); Sodium 131 mmol/L (136-145); Total Protein,Serum 7.4 g/dl (6.3-8.2)
[2025-08-06 10:31] VITALS: BP 152/102; RESP 10; O2SAT 98
--- OUTSIDE RECORDS SUMMARY | 2025-08-06 10:33 | XMS_ITS | Encounter Summary ---
Author Organization Healthcare Address [address] [place] [address] Care Team Providers Care Rolling Down Machine Operator Name Role Phone Pcp, No Primary Care Provider Unavailabl e Encounter Details Date Type Department Care Team (Latest Contact Info) Description 07/26/2025 Travel Social History Tobacco Use Types Packs/Day Years [...] Description 08/08/2025 11:15 AM EST Office Visit [facility] [address] [place] [address] Sridhar Mathew MD [address] [address] documented as of this encounter Goals Goal Patient Goal Type Associated Problems Recent Progress Patient-Stated? Author Autogenera kaylie Goal Care Plan Autogenerated Problem No Leslie Franklin documented as of this encounter Visit Diagnoses Not on filedocumented in this encounter Additional Health Concerns Active Problems Noted Date Diagnosed Date Autogenerated Problem 08/03/2025 Assessment Noted Time A fall risk assessment has been complete d for the patient 07/18/2025 12:58 PM EDT documented as of this encounter Care Teams Rolling Down Machine Operator Relationship Specialty Start Date End Date Pcp, No [address] [place] [address] PCP - General Family Medicine 10/23/25 documented as of this encounter
--- OUTSIDE RECORDS SUMMARY | 2025-08-06 10:33 | XMS_ITS | Encounter Summary ---
Author Organization Healthcare Address 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) Procedures MR Abdomen w and wo IV Contrast Jose Miguel Mendieta MD [address] [address] Phone: tel: fax: Referral ID Status Reason Start Date Expiration Date Visits Re quested Visits Authorized [id number] Closed 07/27/2025 01/26/2027 1 1 Encounter Details Date Type Department Care Team (Late st Contact Info) Description 07/27/2025 Orders Only [facility] [address] [place] [address] Jose Miguel Mendieta MD [address] [address] Malignant melanoma of choroid of [...] Description 08/08/2025 11:15 AM EST Office Visit [facility] [address] [place] [address] Sridhar Mathew MD [address] [place] [address] documented as of this encounter Goals Goal Patient Goal Type Associated Problems Recent Progress Patient-Stated? Author Autogenera kaylie Goal Care Plan Autogenerated Problem No Leslie Franklin documented as of this encounter Results * MR Abdomen w [...] using the following sequences: coronal single shot [id number] fast spin echo, axial T2 weighted sequences [...] documented as of this encounter Care Teams Web Press Roll Tender Relationship Specialty Start Date End Date [place], [place] [address] PCP - General Family Medicine 07/26/25 documented as of this encounter
--- OUTSIDE RECORDS SUMMARY | 2025-08-06 10:34 | XMS_ITS | Clinical Summary ---
Author Organization Healthcare Address [address] [place] [address] Care Team Providers Care Blood Bank Attendant Name Role Phone Pcp, No Primary Care Provider Unavailabl e Allergies No known active allergies Medications acetaminophen (Tylenol) 500 MG tablet Take 2 tablets by mouth every 6 hours as needed. Active HYDROcodone-sonia taminophen ([place]) 5-325 MG tablet Take 1 tablet by mouth every 6 hours as needed for severe pain. 10 tablet 08/02/2025 Active ondansetron (Zofran) 4 MG tablet Take 1 tablet by mouth every 8 hours as needed for nausea or vomiting. 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 Encounters Date Type Department Care Team Description 08/02/2025 3:59 PM EDT Anesthesia Event [facility] [address] [place] [address] Mayela Banerjee MD Ritchie-Dabney, Rosalind, MD 08/02/2025 1:40 PM EDT - 08/02/2025 3:10 PM EDT [facility] [address] [place] [address] Sridhar Mathew MD Left enucleation with orbital implant insertion [80319 (CPT )] 08/02/2025 11:59 AM EDT - 08/02/2025 6:24 PM EDT Hospital Encounter [facility] [address] [place] [address] Sridhar Mathew MD 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) Discharge Disposition: Home or Self Care 07/30/2025 Travel 07/27/2025 Orders Only [facility] [address] [place] [address] Jose Miguel Mendieta MD 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); Exudative retinal detachment of left eye 07/26/2025 12:35 PM EDT - 07/26/2025 11:59 PM EDT Hospital Encounter [facility] [address] [place] [address] 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) Discharge Disposition: Home or Self Care 07/26/2025 Travel 07/18/2025 12:40 PM EDT Ancillary Procedure [facility] [address] [place] [address] 07/18/2025 12:40 PM EDT Ancillary Procedure [facility] [address] [place] [address] 07/18/2025 12:30 PM EDT Office Visit [facility] [address] [place] [address] Jose Miguel Mendieta MD 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); Exudative retinal detachment of left eye 07/18/2025 Travel 07/17/2025 Telephone [facility] [address] [place] [address] Jose Miguel Mendieta MD from Last 3 Months Family History Medical History Relation Name Comments Cancer Brother Cancer Father Heart disease Mother Cancer Sister Malig Hypertension Neg Hx Relation Name Status Comments Brother Father Mother Sister Social History Tobacco Use Types Packs/Day Years Used Date Smoking Tobacco: Former Cigarettes Q uit: 07/18/1975 Passive Smoke Exposure: Past Smokeless Tobacco: Never Tobacco Cessation:Counseling Given: No Alcohol Use Standard Drinks/Week Comments Not Currently 0 (1 standard drink = 0.6 oz pur e alcohol) Sex and Gender Information Value Date Recorded Sex Assigned at Not on file Legal Sex Male 2:53 PM EDT Gender Identity Not on file Sexual Orientation Not on file Last Filed Vital Signs Vital Sign Reading [...] Mass Index 28.49 08/02/2025 2:15 PM EDT Plan of Treatment Upcoming Encounters Date Type Department Care Team (Late st Contact Info) Description 08/08/2025 11:15 AM EST Office Visit [facility] [address] [place] [address] Sridhar Mathew MD [address] [address] Health Maintenance Due Date Last Done Comments [facility]-Depression Screening 1945 [facility]-Hepatitis C Screening 1945 [facility]-Medicare Annual Wellness (AWV) 1945 [facility]-Infant/Child/Adol SDOH Screenings 1945 [facility]- SDOH Screenings 1964 [facility]-Adult SDOH Screenings 1964 [facility]-DTaP,Tdap,and Td Vaccine s (1 - Tdap) 1965 [facility]-Hepatitis A Vaccines (1 of 2 - Risk 2-dose series) 1965 [facility]-Pneumococcal Vaccine: 50 + Years (1 of 2 - PCV) 1965 [facility]-Zoster Vaccines (1 of 2) 1965 [facility]-RSV Vaccine: 60+ Years o r (1 - 1-dose 75+ series) 2021 [id number] Vaccine (3 - Pfizer risk series) 07/09/2021 06/11/2021, 05/21/2021 [facility]-Influenza Vaccine (#1) 2025 [facility]-Obesity Intervention Completed 07/30/2025 HPV Vaccines Aged Out No longer eligi ble based on patient's age to complete this topic [facility]-HIB Vaccines Aged Out No longer e ligible based on patient's age to complete this topic [facility]-IPV Vaccines Aged Out No longer e ligible based on patient's age to complete this topic [facility]-Rotavirus Vaccines Aged Out No lo nger eligible based on patient's age to complete this topic Goals Goal Patient Goal Type Associated Problems Recent Progress Patient-Stated? Author Autogenera kaylie Goal Care Plan Autogenerated Problem No Leslie Franklin Medical Devices Implanted Type Area Dimensional Engineer Device Identifier Shelf Expiration Date Model / Serial / Lot Conformer Large W/Holes - [id number] Implanted:07/06 by Sridhar Mathew MD at [facility] (Quantity not on file) [facility]-[id number] / / Conformer Small W/Holes - [id number] Implanted:07/06 by Sridhar Mathew MD at [facility] (Quantity not on file) [facility]-[id number] / / Sphere Eye 18mm - [id number] Implanted:07/06 by Sridhar Mathew MD at [facility] (Quantity not on file) [facility][id number] / / Sphere Eye 22mm - [id number] Implanted:07/06 by Sridhar Mathew MD at [facility] (Quantity not on file) [facility]-[id number] 7 [id number] / / Conformer Medium W/Holes - [id number] - [id number] Implanted:Qty: 1 on 08/02/2025 by Sridhar Mathew MD at [facility] Left: Eye [facility]-[id number] 7 05/20/2026 [id number] / [id number] / [id number] Eye Sphere 20mm - [id number] - [id number] Implanted:Qty: 1 on 08/02/2025 by Sridhar Mathew MD at [facility] Left: Eye [facility] Op[facility]mics-[id number] 7 05/20/2026 [id number] / [id number] / [id number] Tissue Sclera - [id number] - [id number] Implanted:Qty: 1 on 08/02/2025 by Sridhar Mathew MD at [facility] Left: Eye [id number] 03/02/2026 SCLERA TISSUE / [id number] / [id number] OSSW Procedures Procedure Name Priority Date/Time Associated Diagnosis Comments PB ANESTHESIA PLACEHOLDER Routine 08/02/2025 4:04 PM EDT SC AN ELECTIVE SUPRAGLOTTIC AIRWAY Routine 08/02/2025 4:04 PM EDT SC REMOVE EYE W MUSC TO IMPLANT 08/02/2025 3:54 PM EDT 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) MR ABDOMEN W AND WO IV CONTRAST STAT 08/01/2025 5:08 PM EDT 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) MR ORBITS W AND WO IV CONTRAST STAT 07/30/2025 8:22 AM EDT 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) CT CHEST W IV CONTRAST STAT 07/26/2025 1:56 PM EDT 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) CT ABDOMEN PELVIS W IV CONTRAST STAT 07/26/2025 1:56 PM EDT 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) B-SCAN ULTRASOUND, HIGH RESOLUTION - OD - [...] melanoma of choroid of left eye (CMS/HCC) from Last 3 Months Results * SC AN ELECTIVE SUPRAGLOTTIC AIRWAY, PB ANESTHESIA PLACEHOLDER (08/02/2025 4:04 PM EDT) Narrative Daniela Kowalski CRNA - 08/02/2025 4:04 PM EDT Daniela Kowalski CRNA 08/02/2025 4:10 PM Airway Date/Time: 08/02/2025 4:04 PM Reason: elective Airway not difficult General Information and Staff Patient location during procedure: OR NURSE OFFICE: Daniela Kowalski CRNA Performed: LILO Patient Condition Indications for airway management: anesthesia Patient position: sniffing MILS maintained throughout Final Airway Details Final airway type: LMALMA Size: 4 LMA Type: normal Additional Comments Atraumatic, dentition unchanged us Randell Jones MD ANESTHESIA ORDERABLES Final Resu lt * MR Abdomen w and wo IV [...] using the following sequences: coronal single shot [id number] fast spin echo, axial T2 weighted sequences [...] MD IMG MRI PROCEDURES Final Result * MR Orbits w and wo IV [...] multiecho sequences were obtained utilizing T1 and [id number] and axial diffusion weighted images through the [...] the medial aspect of the globe measures [id number] mm AP by 11 mm transverse by [...] IMG MRI PROCEDURES Final Result * CT Abdomen Pelvis [...] IMG CT PROCEDURES Final Result * CT Chest w [...] eye (OD) us Jose Miguel Mendieta MD OPHTH ULTRASOUND Edited Result - Final * B-Scan [...] Left eye (OS) subretinal fluid (SRF) subfoveally us Jose Miguel Mendieta MD OPHTH TOMOGRAPHY Final Result from Last 3 Months Additional Health Concerns Active Problems Noted Date Diagnosed Date Autogenerated Problem 08/03/2025 Insurance [employer] MEDICARE Care Teams Blood Bank Attendant Relationship Specialty Start Date End Date Pcp, No [address] [place] [address] PCP - General Family Medicine 07/26/25
--- OUTSIDE RECORDS SUMMARY | 2025-08-06 10:34 | XMS_ITS | Encounter Summary ---
Author Organization Healthcare Address [address] [place] [address] Care Team Providers Care Floor Coverings Salesperson Name Role Phone Unavailable Primary Care Provider Unavailabl e Encounter Details Date Type Department Care Team (Latest Contact Info) Description 07/18/2025 Travel Social History Tobacco Use Types Packs/Day [...] Description 08/08/2025 11:15 AM EST Office Visit [facility] [address] [place] [address] Sridhar Mathew MD [address] [address] documented as of this encounter Visit Diagnoses Not on filedocumented in this encounter Additional Health Concerns Assessment Noted Time A fall risk assessment has been complete d for the patient 07/18/2025 12:58 PM EDT documented as of this encounter
--- OUTSIDE RECORDS SUMMARY | 2025-08-06 10:34 | XMS_ITS | Encounter Summary ---
Author Organization Healthcare Address [address] [place] [address] Care Team Providers Care Tugboat Operator Name Role Phone Pcp, No Primary Care Provider Unavailabl e Encounter Details Date Type Department Care Team (Latest Contact Info) Description 07/30/2025 Travel Social History Tobacco Use Types Packs/Day [...] Description 08/08/2025 11:15 AM EST Office Visit [facility] [address] [place] [address] Sridhar Mathew MD [address] [address] documented as of this encounter [...] documented as of this encounter Care Teams Tugboat Operator Relationship Specialty Start Date End Date Pcp, [place] [address] PCP - General Family Medicine 07/26/25 documented as of this encounter
--- OUTSIDE RECORDS SUMMARY | 2025-08-06 10:34 | XMS_ITS | Encounter Summary ---
Author Organization Healthcare Address [address] [place] [address] Care Team Providers Care Counter Intelligence Technician Name Role Phone Pcp, No Primary Care Provider Unavailabl e Encounter Details Date Type Department Care Team (Latest Contact Info) Description 08/01/2025 Travel Social History Tobacco Use Types Packs/Day [...] [facility] [address] [place] [address] Sridhar Mathew MD [address] [address] documented as of this encounter [...] documented as of this encounter Care Teams Counter Intelligence Technician Relationship Specialty Start Date End Date Pcp, [place] [address] PCP - General Family Medicine 07/26/25 documented as of this encounter
--- OUTSIDE RECORDS SUMMARY | 2025-08-06 10:35 | XMS_ITS | Encounter Summary ---
Author Organization Healthcare Address [address] [place] [address] Care Team Providers Care Instructor Decorating Name Role Phone Unavailable Primary Care Provider Unavailabl e Encounter Details Date Type Department Care Team (Late st Contact Info) Description 07/17/2025 Telephone [facility] [address] [place] [address] Jose Miguel Mendieta MD [address] [facility] [address] [place] [phone] Social History Tobacco Use Types Packs/Day Years Used Date Smoking Tobacco: Never Assessed Sex and Gender Information Value Date Recorded Sex Assigned at Not on file Legal Sex Male 2:53 PM EDT Gender Identity Not on file Sexual Orientation Not on file documented as of this encounter Miscellaneous Notes * Telephone Encounter - Kristen Reagan - 07/17/2025 2:57 PM EDT Left detailed voicemail for patient. Advised that I am trying to schedule an appt for him for tomorrow based on an urgent referral that I have received from Dr. Segundo's office. documented in this encounter Plan of Treatment Upcoming Encounters Date Type Department Care Team (Late st Contact Info) Description 08/08/2025 11:15 AM EST Office Visit [facility] [address] [place] [address] Sridhar Mathew MD [address] [place] [address] documented as of this encounter Visit Diagnoses Not on filedocumented in this encounter
[2025-08-06 10:39] LABS: Troponin I < 0.01 ng/ml (0.00-0.034)
[2025-08-06] MEDS: ACETAMINOPHEN 1,000MG/100ML VIAL 1000 MG IV (11:04)
--- NOTE | 2025-08-06 11:24 | CT_ITS ---
FINAL REPORT TECHNIQUE: Thin section axial images were obtained from skull base to vertex without contrast. Coronal reconstruction images were obtained from the axial data. Exam was performed using dose reduction techniques such as automated exposure control, adjustment of the mA and kV according to patient size, and use of iterative reconstruction technique. CLINICAL HISTORY: headache, bradycardia FINDINGS: There is atrophy. No mass effect or midline shift. No intracranial hemorrhage. No hydrocephalus. Periventricular low density is likely related to changes of chronic small vessel ischemia. The basilar cisterns are preserved. The posterior fossa is without acute abnormality. The soft tissues are without acute abnormality. No acute osseous abnormality is identified. IMPRESSION: No acute intracranial abnormality. Atrophy and changes suggesting chronic small vessel ischemia. Reviewed, Interpreted and Dictated by Alondra Jackson MD Transcribed by Veronica Salinas Authenticated and [facility]
[2025-08-06 12:03] LABS: Alkaline Phosphatase 125 U/L (38-126); Bilirubin,Total 0.9 mg/dl (0.2-1.3)
[2025-08-06] MEDS: ONDANSETRON 4MG/2ML VIAL 4 MG IV (12:03)
--- NOTE | 2025-08-06 13:27 | PC.NURSE ---
calling [facility] at this time.
--- NOTE | 2025-08-06 13:43 | PC.NURSE ---
[facility] called back and in speaking with Dr Lara the pt was accepted by Dr Rivas to [facility]
[2025-08-06 13:53] LABS: Troponin I < 0.01 ng/ml (0.00-0.034)
[2025-08-06 14:02] VITALS: BP 180/104; PULSE 50; RESP 20; TEMP 36.8; O2SAT 99
[2025-08-06 18:47] LABS: Hepatitis C Ab Qual. W/ RFX NEGATIVE (Negative)
== END 2025-08-06 14:04 | disposition other institution (70) ==
PROVIDERS: Emergency Provider Student in an Organized Health Care Education/Training Program; PCP Family Medicine
DX: R07.9 Chest pain, unspecified (principal); I48.91 Unspecified atrial fibrillation; H57.89 Other specified disorders of eye and adnexa; E87.1 Hypo-osmolality and hyponatremia; Z90.01 Acquired absence of eye
CPT/HCPCS: 70450; 71045; 80053; 84484; 85025; 86803; 87389; 93005; 96374; 96375; 99285; J0131; J2405

== ENCOUNTER 2025-08-10 11:31 | Observation (INO) | payer MEDICARE, OTHER, SELFPAY ==
[2025-08-10 11:36] VITALS: O2SAT 95
--- NOTE | 2025-08-10 11:51 | HMH.PHAINT1 ---
Pharmacy Intervention Comments: MEDICATION RECONCILIATION COMPLETED ON PATIENT USING EXTERNAL FILL HISTORY FROM PHARMACY AND LIST FROM PCP OFFICE. -SORAYA KOTHARI, NATYD
[2025-08-10 12:01] VITALS: BP 147/82; PULSE 66; RESP 14; TEMP 36.8; O2SAT 98
--- NOTE | 2025-08-10 12:58 | EXP.HP ---
History of Present Illness *Admission Date: 08/10/25 *Reason for visit:: Chest pain *History of present illness: Zaynab Lincoln is a 80-year-old male who recently underwent left eye enucleation 1 week ago during a retinal detachment repair when a tumor was found presented with chest pain, headache. Patient states he has been having intermittent headaches the back since surgery, was evaluated on 08/06/2025 in the ED during which a head CT did not show acute findings. Patient does have chronic migraines at baseline. Today, patient states he began having left-sided chest pain without radiation, which waxed and waned. He presented to his PCPs office who directed him to the cardiology's office. During that evaluation, EKG was noted to have possible transient third-degree heart block with bradycardia. Dr. Harris was consulted and recommended admission for further monitoring and pacemaker consideration. On my evaluation, patient was sitting at bedside chair comfortably without distress. He denied chest pain, headache at this time. Heart rate was in the 50s during this time. CBC, CMP relatively unremarkable. I discussed case with cardiology and I decided to admit patient for chest pain workup, and bradycardia. [facility] Disclaimer: The information contained in this section may have been updated after the patient was seen, as this information can be updated by other users. Medical History Hyponatremia Anemia Abnormal electrocardiogram [ECG] [EKG] Hypertension Skin cancer Hx of skin cancer, basal cell Surgical History Past history of tetralogy of Fallot, post surgical repair Family History Other Cancer Heart attack Social History Smoking Status: Never smoker alcohol intake: never substance use type: denies use current occupational status: retired Travel in the last 8 weeks?: None household members: family housing: house marital status: education level: middle school Have you lived/traveled outside US in past 30 days?: No Contact w/someone who lives/traveled outside US past 30 days?: No Exposure to someone with infectious disease in past 14 days?: No Do you have a fever (greater than 100.4 F or 38 C)?: No Have you tested positive for COVID-19?: No Exposed to someone with COVID-19 in past 14 days?: No Do you have a sore throat?: No Do you have a cough?: No Do you have any weakness?: No Do you have any diarrhea?: No Are you experiencing any unusual bleeding?: No Do you have any muscle aches/pain?: No Do you have any abdominal pain?: No Are you experiencing loss of taste or smell?: No Other Medical History Have you received the Flu Vaccine for this season: No Have you received the Pneumonia Vaccine: No Meds Home Medications and Allergies Home Medications ?Medication ?Instructions ?Recorded ?Confirmed ?Type amoxicillin 875 mg-potassium 1 tab PO BID 08/10/25 08/10/25 History clavulanate 125 mg tablet docusate sodium 100 mg capsule 100 mg PO DAILY #30 caps 08/10/25 08/10/25 Rx (Colace) ondansetron HCl 4 mg tablet 4 mg PO TIDP PRN Nausea And 08/10/25 08/10/25 History Vomiting polyethylene glycol 3350 17 17 g PO DAILYP PRN constipation 08/10/25 08/10/25 History gram/dose oral powder (Miralax) sumatriptan succinate 50 mg tablet 50 mg PO DIRECTED PRN Migraine 08/10/25 08/10/25 History Headache New Prescriptions to Start Prescriptions: Allergies Allergy/AdvReac Type Severity Reaction Status Date / Time hydrocodone AdvReac Vomiting Verified 08/10/25 10:47 Exam Data for Last 24 hours Vital signs and Labs for Last 24 Hours: Temp Pulse Resp BP Pulse Ox O2 Del Method 98.2 F 66 14 147/82 H 98 Room Air 08/10/25 12:01 08/10/25 12:01 08/10/25 12:01 08/10/25 12:01 08/10/25 12:01 08/10/25 12:01 I & O for Last 24 hours: Intake & Output 08/07/25 08/08/25 08/09/25 08/10/25 23:59 23:59 23:59 23:59 Output Total 0 / 0 Balance 0 / 0 Constitutional Constitutional: no acute distress Comments: S/p left enucleation with prosthetic *Routine HEENT Exam Head: Present normocephalic Eye: Present EOMI and PERRL ENT: Present mucous membranes moist *Routine Neck Exam Neck: Present supple; Absent lymphadenopathy *Routine Respiratory Exam Respiratory: Present CTA bilaterally *Routine Cardiovascular Exam Cardiovascular: Present RRR *Routine Abdominal Exam Abdominal: Present soft and normoactive bowel sounds; Absent tenderness *Routine Rectal Exam Rectal:: deferred *Routine Genitalia Exam Genitalia:: deferred *Routine Extremities Exam Extremities: Absent cyanosis, clubbing or edema *Routine Skin Exam Skin: Present warm; Absent rash *Routine Neurological Exam Neurological: Present alert and oriented X3 Assessment and Plan *Assessment and plan (1) Bradycardia: Status: Acute Category: Medical Code(s): R00.1 - Bradycardia, unspecified (2) History of eye enucleation: Status: Acute Category: Surgical Code(s): Z90.01 - Acquired absence of eye Plan Zaynab Lincoln is a 80-year-old male who recently underwent left eye enucleation 1 week ago during a retinal detachment repair when a tumor was found presented with chest pain, headache. Patient states he has been having intermittent headaches the back since surgery, was evaluated on 08/06/2025 in the ED during which a head CT did not show acute findings. Patient does have chronic migraines at baseline. Today, patient states he began having left-sided chest pain without radiation, which waxed and waned. He presented to his PCPs office who directed him to the cardiology's office. During that evaluation, EKG was noted to have possible transient third-degree heart block with bradycardia. Dr. Harris was consulted and recommended admission for further monitoring and pacemaker consideration. On my evaluation, patient was sitting at bedside chair comfortably without distress. He denied chest pain, headache at this time. Heart rate was in the 50s during this time. CBC, CMP relatively unremarkable. I discussed case with cardiology and I decided to admit patient for chest pain workup, and bradycardia. #Chest pain #Sinus bradycardia #Possible transient third-degree heart block ? Presented with intermittent headaches since left eye enucleation 1 week ago, and chest pain for 1 day. Initial EKG showed possible transient third-degree heart block per Dr. Harris. ? It is unclear if bradycardia is causing headaches or chest pain, patient denies dizziness. Patient does have chronic migraines at baseline. ? After admission, patient did have a heart rate that dropped to the 30s the patient remained relatively asymptomatic during this time. ? Discussed with Dr. Harris, planning for pacemaker on Wednesday. ? Troponins negative, EKG without acute ischemic changes. ? Avoid AV renetta blockers. ? Follow-up ECHO. ? Continuous cardiac telemetry. #Suspected hyperthyroidism ? TSH low at 0.02, free T4 elevated 2.24. Will repeat lab values tomorrow and consider treatment if still abnormal. #Left eye enucleation ? Patient has had intermittent headaches since left eye enucleation 1 week ago, had CT on 08/06/2025 did not show acute findings. ? Patient denies pain around orbital site, there is erythema over the left eyelid which seems consistent with postoperative changes. Will continue to monitor. WBC normal. ? Continue course of Augmentin for total of 10 days as prescribed. Full code DVT prophylaxis: Lovenox 40 mg Will medications: Restarted.
--- NOTE | 2025-08-10 12:59 | CA_ITS ---
APPROVED REPORT EXAM: Comprehensive 2D, Doppler, and color-flow Echocardiogram Electric Meter Inspector: Aminta Aly CRT Ht: 5 ft 4 in Wt: 162lbs BSA: 1.79 BP: 146/86 mmHg Indications: Chest Pain, Atrial Fibrillation, Obesity, Hypertension/HDD, Hx tetralogy of Fallot with surgical repair 2D Dimensions LA Volume 42.20 mL LA Volume Index 23.10 mL/m2 (M/F) 16-34 M-Mode Dimensions RVDd 2.70 cm (0.9-2.6) LA Diam 4.10 cm (1.9-4.0) LVDd 5.74 cm (3.5-5.7) LVDs 4.26 cm (3.5-5.7) IVSd 0.99 cm (0.6-1.1) PWd 0.95 cm (0.6-1.1) EF (Teich) 50.00% FS 25.80% EDV (Teich) 162.60 mL TAPSE 2.25 (<1.7) ESV (Teich) 81.30 mL LV Diastology E Decel Time 280 (160-240 msec) E/A Ratio 0.98 MED A' 13.20 cm/s LAT A' 12.80 cm/s Aortic Valve AI PHT 741.00 ms AO Peak GR. 10.50 mmHg Mitral Valve MV A Velocity 69.0 (40-130 cm/s) E/A Ratio 0.98 Tricuspid Valve TR P. Velocity 284.00 cm/s RAP Estimate 10.00 mmHg RVSP 42.30 mmHg Left Ventricle The left ventricle is normal size. Left ventricular systolic function is low normal. There is increased left ventricular wall thickness. There is mild septal hypokinesis present. The left ventricular diastolic function is indeterminate. LVEF is 50%. Right Ventricle The right ventricle is mildly dilated. The right ventricular systolic function is mildly reduced. Atria The left atrium size is mildly dilated. The right atrium size is normal. There is no color Doppler evidence of interatrial shunt. Aortic Valve The aortic valve is mildly thickened. There is no hemodynamically significant aortic valvular stenosis. Mild aortic regurgitation is present. Mitral Valve The mitral valve is mildly thickened. No evidence of mitral valve stenosis. Mild mitral regurgitation is present. Tricuspid Valve The tricuspid valve leaflets are thin and pliable. Mild tricuspid regurgitation. RVSP is 30-35 mmHg. Pulmonic Valve The pulmonary valve is grossly normal in structure. Mild pulmonic valve regurgitation is present. Great Vessels The aortic root is normal in size. IVC is normal in size and collapses >50% with inspiration. Pericardium There is no pericardial effusion. Multiple, anechoic hepatic masses are present, most likely representing hepatic cysts. Other Information Study Quality: Fair Conclusion Reported history of tetralogy of Fallot s/p surgical repair during childhood. Low normal systolic function (LVEF 50%). Mild hypokinesis of the septal LV wall. Mild RV dilation with mild reduction in RV function. Mild LA dilation. Mild AI, mild MR, mild TR, mild PI. Incidental finding of multiple anechoic hepatic masses are present, most likely representing hepatic cysts. Correlation with new or recent abdominal imaging is suggested. Electronically signed by : Isela Flores MD 08/11/2025 01:36:33
[2025-08-10 13:01] VITALS: PULSE 60
[2025-08-10 14:15] LABS: Hematocrit 38.9 % (42.0-52.0); Hemoglobin 13.2 g/dL (14.1-18.0); Immature Granulocytes % 0.6 %; Mean Corpuscular HGB Conc 33.9 g/dL (31.8-35.4); Mean Corpuscular Hemoglobin 28.8 pg (27.0-31.2); Mean Corpuscular Volume 84.9 fl (80-94); Nucleated Red Blood Cells % 0 %; Platelet Count 311 K/mm3 (142-424); Red Blood Count 4.58 M/mm3 (4.60-6.20); Red Cell Distribution Width-SD 40.9 fL; White Blood Count 8.0 K/mm3 (4.8-10.8)
[2025-08-10 14:22] VITALS: BMI 26.2
--- NOTE | 2025-08-10 14:33 | ECG_ITS ---
APPROVED REPORT Exam: Resting ECG HR:56 bpm ECG Measurements Heart Rate 56 AXES ND 129 P 40 QRSd 111 QRS -29 QT 431 T 60 QTc 423 Conclusion SINUS BRADYCARDIA WITH MARKED SINUS ARRHYTHMIA POSSIBLE LATERAL MYOCARDIAL INFARCTION , OF INDETERMINATE AGE [30 ms Q WAVE IN I/aVL/V5/V6] ABNORMAL ECG UNCONFIRMED REPORT Electronically signed by : Claudio Sevilla MD 08/10/2025 17:19:35
[2025-08-10 14:36] LABS: Albumin Level 4.8 g/dl (3.5-5.0); Chloride 91 mmol/L (98-107); Potassium 4.2 mmoL/L (3.5-5.1); Sodium 131 mmol/L (136-145)
[2025-08-10 14:38] LABS: Triglycerides 86 mg/dl (30-150)
[2025-08-10 14:39] LABS: Alanine Aminotransferase 20 U/L (12-78); Albumin/Globulin Ratio 2.0 (1.1-1.8); Alkaline Phosphatase 90 U/L (38-126); Anion Gap 12.2 mEq/L (5-15); Aspartate Amino Transferase 26 U/L (17-59); Bilirubin,Total 0.9 mg/dl (0.2-1.3); Calcium 10.1 mg/dl (8.4-10.2); Carbon Dioxide 32 mmol/L (22.0-30.0); Cholesterol 114 mg/dl (140-200); Globulin 2.4 g/dL (1.3-3.2); Glucose 113 mg/dl (74-100); HDL Cholesterol 55 mg/dl (40-60); Magnesium 1.8 mg/dl (1.6-2.3); Total Protein,Serum 7.2 g/dl (6.3-8.2)
[2025-08-10 14:44] LABS: Blood Urea Nitrogen 12 mg/dl (9-20); Creatinine Clearance Estimated 70 mL/min (50-200); Creatinine,Serum 1.00 mg/dl (0.66-1.25); Estimated Glomerular Filt Rate 72 ml/min (>60); GFR (African American) 87 ML/MIN (>60)
[2025-08-10 14:49] LABS: NT Pro Brain Natriuretic Pep. 397 pg/mL (0-450)
[2025-08-10] MEDS: ACETAMINOPHEN 325MG TAB 650 MG PO ×2 (14:49→19:58)
[2025-08-10 15:05] LABS: Troponin I < 0.01 ng/ml (0.00-0.034)
[2025-08-10 15:10] LABS: Thyroid Stimulating Hormone 0.02 uIU/mL (0.465-4.68)
[2025-08-10 15:13] LABS: Hemoglobin A1C 6.1 % (4.0-6.0)
[2025-08-10 15:41] LABS: Free T4 (Free Thyroxine) 2.24 ng/dl (0.78-2.19)
[2025-08-10 16:00] VITALS: BP 144/70; PULSE 61; PULSE 70; RESP 10; TEMP 36.6; O2SAT 95
[2025-08-10 19:59] VITALS: BP 125/72; PULSE 55; RESP 14; TEMP 36.9; O2SAT 96
[2025-08-10 20:00] VITALS: PULSE 60
[2025-08-10] MEDS: AMOXICILLIN/POT CLAVULAN 500MG TABLET 1 EACH PO (22:06)
[2025-08-11] VITALS: BP 143/100; PULSE 64; PULSE 70; TEMP 36.9; O2SAT 97
[2025-08-11] MEDS: ONDANSETRON 4MG/2ML VIAL 4 MG IV (00:19)
[2025-08-11 04:00] VITALS: BP 163/96; PULSE 55; PULSE 62; RESP 15; TEMP 36.8; O2SAT 97; BMI 25.7
--- NOTE | 2025-08-11 06:52 | PC.NURSE ---
Pt is A&OX4 and has tolerated room air. He has complained of a headache and was medicated per MAR. He has ambulated to the bathroom independently. Ice pack was given for swelling around left eye. No other complaints at this time, call light within reach.
[2025-08-11 07:43] LABS: Hematocrit 41.3 % (42.0-52.0); Hemoglobin 13.8 g/dL (14.1-18.0); Immature Granulocytes % 0.3 %; Mean Corpuscular HGB Conc 33.4 g/dL (31.8-35.4); Mean Corpuscular Hemoglobin 28.8 pg (27.0-31.2); Mean Corpuscular Volume 86.2 fl (80-94); Nucleated Red Blood Cells % 0 %; Platelet Count 371 K/mm3 (142-424); Red Blood Count 4.79 M/mm3 (4.60-6.20); Red Cell Distribution Width-SD 41.7 fL; White Blood Count 9.5 K/mm3 (4.8-10.8)
[2025-08-11 08:00] VITALS: BP 150/82; PULSE 73; PULSE 80; RESP 16; TEMP 36.7; O2SAT 97
[2025-08-11 08:09] LABS: Alanine Aminotransferase 21 U/L (12-78); Albumin Level 4.3 g/dl (3.5-5.0); Albumin/Globulin Ratio 1.3 (1.1-1.8); Alkaline Phosphatase 107 U/L (38-126); Anion Gap 12.9 mEq/L (5-15); Aspartate Amino Transferase 26 U/L (17-59); Bilirubin,Total 0.8 mg/dl (0.2-1.3); Blood Urea Nitrogen 12 mg/dl (9-20); Calcium 10.7 mg/dl (8.4-10.2); Carbon Dioxide 26 mmol/L (22.0-30.0); Chloride 94 mmol/L (98-107); Creatinine Clearance Estimated 69 mL/min (50-200); Creatinine,Serum 1.00 mg/dl (0.66-1.25); Estimated Glomerular Filt Rate 72 ml/min (>60); GFR (African American) 87 ML/MIN (>60); Globulin 3.4 g/dL (1.3-3.2); Glucose 106 mg/dl (74-100); Magnesium 1.8 mg/dl (1.6-2.3); Potassium 3.9 mmoL/L (3.5-5.1); Sodium 129 mmol/L (136-145); Total Protein,Serum 7.7 g/dl (6.3-8.2)
[2025-08-11 08:40] LABS: C-Reactive Protein 49.9 mg/L (0-4)
[2025-08-11 08:54] LABS: Free T4 (Free Thyroxine) 2.10 ng/dl (0.78-2.19); Procalcitonin 0.064 ng/mL (0.0-2.0)
[2025-08-11] MEDS: LACTATED RINGERS 1000ML 500 ML IV (09:05)
[2025-08-11] MEDS: AMOXICILLIN/POT CLAVULAN 500MG TABLET 1 EACH PO ×2 (09:06→14:45)
[2025-08-11] MEDS: ACETAMINOPHEN 325MG TAB 650 MG PO (09:11)
[2025-08-11 09:34] LABS: Thyroid Stimulating Hormone 0.03 uIU/mL (0.465-4.68)
[2025-08-11 12:00] VITALS: BP 130/81; PULSE 60; PULSE 69; RESP 20; TEMP 37.1; O2SAT 96
--- NOTE | 2025-08-11 14:36 | P.DS_ITS ---
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 Patient states he has been having intermittent headaches the back since surgery, was evaluated on 08/06/2025 in the ED during which a head CT did not show acute findings. Patient does have chronic migrain es at baseline. Today, patient states he began having left-sided chest pain without radiation, which waxed and waned. He presented to his PCPs office who directed him to the cardiology's office. During that evaluation, EKG was noted to have possible transient third-degree heart block with bradycardia. Dr. Harris was consulted and recommended admission for further monitoring and pacemaker consideration. On my evaluation, patient was sitting at bedside chair comfortably without distress. He denied chest pain, headache at this time. Heart rate was in the 50s during this time. CBC, CMP relatively unremarkable. I discussed case with cardiology and I decided to admit patient for chest pain workup, and bradycardia. Hospital Course Hospital Course Hospital Course: Zaynab Lincoln is a 80-year-old male who recently underwent left eye enucleation 1 week ago during a retinal detachment repair when a tumor was found presented with chest pain, headache. Patient states he has been having intermittent headaches the back since surgery, was evaluated on 08/06/2025 in the ED during which a head CT did not show acute findings. Patient does have chronic migraines at baseline. Today, patient states he began having left-sided chest pain without radiation, which waxed and waned. He presented to his PCPs office who directed him to the cardiology's office. During that evaluation, EKG was noted to have possible transient third-degree heart block with bradycardia. Dr. Harris was consulted and recommended admission for further monitoring and pacemaker consideration. On my evaluation, patient was sitting at bedside chair comfortably without distress. He denied chest pain, headache at this time. Heart rate was in the 50s during this time. CBC, CMP relatively unremarkable. I discussed case with cardiology and I decided to admit patient for chest pain workup, and bradycardia. #Chest pain #Sick sinus syndrome ? Presented with intermittent headaches since left eye enucleation 1 week ago, and chest pain for 1 day. Initial EKG initially thought to have transient third-degree heart block, but this seems more consistent with sinus bradycardia with pause that has resolved. ? Patient did have an episode of heart rate that dropped to the 39 but patient remained relatively asymptomatic during this time. Otherwise, patient remained asymptomatic throughout hospital course. Heart rate improved to the 50s to 70s, repeat EKG showing sinus bradycardia consistent with sick sinus syndrome. This is a chronic finding. ? ECHO shows mild hypokinesis in the septal monique. Troponin is normal, EKG without acute ischemic changes. ? Discussed with Dr. Harris, given improvement in symptoms and heart rate we will plan for outpatient LHC and possible pacemaker. ? Avoid AV renetta blockers. ? Discharged with event monitor, aspirin 81 mg. Advised patient to call cardiology office on Wednesday to be seen early next week for further evaluation and management. Return precaution discussed and understood. #Suspected hyperthyroidism ? TSH low at 0.02, free T4 elevated 2.24. Repeat TSH also low 0.03, free T4 normalized to 2.1. ? Follow-up Graves' disease antibodies including thyroid-stimulating hormone antibody, thyroid peroxidase. If positive, consider starting treatment outpatient. #Left eye enucleation ? Patient has had intermittent headaches since left eye enucleation 1 week ago, had CT on 08/06/2025 did not show acute findings. ? Patient denies pain around orbital site, there is erythema over the left eyelid which seems consistent with postoperative changes. WBC normal, afebrile. ? Continue course of Augmentin for total of 10 days as prescribed. Follow-up with ophthalmology as planned. Recommended cold compresses. Total time spent on discharge: 33 minutes on chart review, counseling, documentation, and direct care with patient. Exam Data for Last 24 hours Vital signs and Labs for Last 24 Hours: Temp Pulse Resp BP Pulse Ox O2 Del Method 98.7 F 69 20 130/81 96 Room Air 08/11/25 12:00 08/11/25 12:00 08/11/25 12:00 08/11/25 12:00 08/11/25 12:00 08/11/25 12:00 Laboratory Results - last 24 hr 08/10/25 14:05: Sodium 131 L, Potassium 4.2, Chloride 91 L, Carbon Dioxide 32 H, Anion Gap 12.2, BUN 12, Creatinine 1.00, Estimated Creat Clear 70, Estimated GFR 72, Est GFR ( Amer) 87, Glucose 113 H, Hemoglobin A1c 6.1 H, Calcium 10.1, Magnesium 1.8, Total Bilirubin 0.9, AST 26, ALT 20, Alkaline Phosphatase 90, Troponin I < 0.01, NT-Pro-B Natriuret Pep 397, Total Protein 7.2, Albumin 4.8, Globulin 2.4, Albumin/Globulin Ratio 2.0 H, Triglycerides 86, Cholesterol 114 L, LDL Cholesterol Direct 56.06 L, VLDL Cholesterol 17, HDL Cholesterol 55, Cholesterol/HDL Ratio 2.1, TSH 0.02 L, Free T4 2.24 H 08/11/25 07:00: WBC 9.5, RBC 4.79, Hgb 13.8 L, Hct 41.3 L, MCV 86.2, MCH 28.8, MCHC 33.4, RDW 13.4, Plt Count 371, MPV 10.1, Neut % (Auto) 77.6, Lymph % (Auto) 12.1, [place] % (Auto) 9.5 H, Eos % (Auto) 0.3, Baso % (Auto) 0.2, Neut # (Auto) 7.4, Lymph # (Auto) 1.2, [place] # (Auto) 0.9, Eos # (Auto) 0.0, Baso # (Auto) 0.0, Sodium 129 L, Potassium 3.9, Chloride 94 L, Carbon Dioxide 26, Anion Gap 12.9, BUN 12, Creatinine 1.00, Estimated Creat Clear 69, Estimated GFR 72, Est GFR ( Amer) 87, Glucose 106 H, Calcium 10.7 H, Magnesium 1.8, Total Bilirubin 0.8, AST 26, ALT 21, Alkaline Phosphatase 107, C-Reactive Protein 49.9 H, Total Protein 7.7, Albumin 4.3 D, Globulin 3.4 H, Albumin/Globulin Ratio 1.3, Procalcitonin 0.064, TSH 0.03 L D, Free T4 2.10 I & O for Last 24 hours: Intake & Output 08/08/25 08/09/25 08/10/25 08/11/25 23:59 23:59 23:59 23:59 Intake Total 970 / 970 Output Total 0 / 0 500 / 500 Balance 0 / 250 470 / 470 Weight 83.036 kg 81.448 kg Constitutional Constitutional: no acute distress Comments: Left eye enucleation. *Routine HEENT Exam Head: Present normocephalic Eye: Present EOMI and PERRL ENT: Present mucous membranes moist *Routine Neck Exam Neck: Present supple; Absent lymphadenopathy *Routine Respiratory Exam Respiratory: Present CTA bilaterally *Routine Cardiovascular Exam Cardiovascular: Present RRR *Routine Abdominal Exam Abdominal: Present soft and normoactive bowel sounds; Absent tenderness *Routine Extremities Exam Extremities: Absent cyanosis, clubbing or edema *Routine Skin Exam Skin: Present warm; Absent rash *Routine Neurological Exam Neurological: Present alert and oriented X3 Results Data Completed and Pending Labs on day of discharge: Labs from last 24 hours 08/11/25 08/10/25 07:00 14:05 WBC 9.5 RBC 4.79 Hgb 13.8 L Hct 41.3 L MCV 86.2 MCH 28.8 MCHC 33.4 RDW 13.4 Plt Count 371 MPV 10.1 Neut % (Auto) 77.6 Lymph % (Auto) 12.1 [place] % (Auto) 9.5 H Eos % (Auto) 0.3 Baso % (Auto) 0.2 Neut # (Auto) 7.4 Lymph # (Auto) 1.2 [place] # (Auto) 0.9 Eos # (Auto) 0.0 Baso # (Auto) 0.0 Sodium 129 L 131 L Potassium 3.9 4.2 Chloride 94 L 91 L Carbon Dioxide 26 32 H Anion Gap 12.9 12.2 BUN 12 12 Creatinine 1.00 1.00 Estimated Creat Clear 69 70 Estimated GFR 72 72 Est GFR ( Amer) 87 87 Glucose 106 H 113 H Hemoglobin A1c 6.1 H Calcium 10.7 H 10.1 Magnesium 1.8 1.8 Total Bilirubin 0.8 0.9 AST 26 26 ALT 21 20 Alkaline Phosphatase 107 90 Troponin I < 0.01 C-Reactive Protein 49.9 H NT-Pro-B Natriuret Pep 397 Total Protein 7.7 7.2 Albumin 4.3 D 4.8 Globulin 3.4 H 2.4 Albumin/Globulin Ratio 1.3 2.0 H Triglycerides 86 Cholesterol 114 L LDL Cholesterol Direct 56.06 L VLDL Cholesterol 17 HDL Cholesterol 55 Cholesterol/HDL Ratio 2.1 Procalcitonin 0.064 TSH 0.03 L D 0.02 L Free T4 2.10 2.24 H DS: Diagnosis Discharge Diagnosis (1) Bradycardia: Status: Acute Code(s): R00.1 - Bradycardia, unspecified (2) History of eye enucleation: Status: Acute Code(s): Z90.01 - Acquired absence of eye Meds Home Medications and Allergies Home Medications ?Medication ?Instructions ?Recorded ?Confirmed ?Type amoxicillin 875 mg-potassium 1 tab PO BID 08/10/2504/27 History clavulanate 125 mg tablet docusate sodium 100 mg capsule 100 mg PO DAILY #30 cap s 08/10/25 08/10/25 Rx (Colace) ondansetron HCl 4 mg tablet 4 mg PO TIDP PRN Nausea An d 08/10/25 08/10/25 History Vomiting polyethylene glycol 3350 17 17 g PO DAILYP PRN constip ation 08/10/25 08/10/25 History gram/dose oral powder (Miralax) sumatriptan succinate 50 mg tablet 50 mg PO DIRECTE D PRN Migraine 08/10/25 08/10/25 History Headache aspirin 81 mg tablet,delayed 81 mg PO DAILY #30 tabs 1 10/11/24 Rx release New Prescriptions to Start Prescriptions: Bib Brown Allergies Allergy/AdvReac Type Severity Reaction Status Date / Time hydrocodone AdvReac Vomiting Verified 08/10/25 10:47 Discharge Plan Disposition Patient Disposition: Home, Self-Care Condition: Fair Follow up Plan Follow up with: Chad Membreno PA [Physician Bindery Cutter Operator, Cardiology] - 1 week Prescriptions/Medication Reconciliation: New aspirin 81 mg tablet,delayed release (DR/EC) 81 mg PO DAILY Qty: 30 0RF Continued docusate sodium [Colace] 100 mg capsule 100 mg PO DAILY Qty: 30 0RF ondansetron HCl 4 mg tablet 4 mg PO TIDP PRN (Reason: Nausea And Vomiting) amoxicillin-pot clavulanate 875-125 mg tablet 1 tab PO BID sumatriptan succinate 50 mg tablet 50 mg PO DIRECTED PRN (Reason: Migraine Headache) Rx Instructions: take 1 tab at onset of headache; if no relief may repeat 1 tab after at least 2 hrs; max = 4 tabs/24 hr orally PRN; polyethylene glycol 3350 [Miralax] 17 gram/dose powder 17 g PO DAILYP PRN (Reason: constipation) Problem Reconciliation Problems Reviewed?: Yes Patient Discharge Instructions Patient Instructions: DI for Atypical Chest Pain Print Language: Czech Providers Primary Care Provider: Claudio Guy Admit Provider: Bib Sena Attending Provider: Bib Sena
--- NOTE | 2025-08-13 11:57 | SW/DCPLANNER ---
Spoke with patient on the phone. Patient stated that he is doing good. Patient stated that he is aware of his upcoming appointments. 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 Patient stated that he has no concerns or questions at this time. Harper Johnson
== END 2025-08-11 16:32 | disposition home or self-care (01) ==
PROVIDERS: Admitting Provider Student in an Organized Health Care Education/Training Program; PCP Family Medicine; Visit Provider Student in an Organized Health Care Education/Training Program
DX: R00.1 Bradycardia, unspecified (principal); I49.5 Sick sinus syndrome; E05.00 Thyrotoxicosis with diffuse goiter without thyrotoxic crisis or storm; G43.709 Chronic migraine without aura, not intractable, without status migrainosus; R16.0 Hepatomegaly, not elsewhere classified; Z90.01 Acquired absence of eye; Z88.5 Allergy status to narcotic agent; Z82.49 Family history of ischemic heart disease and other diseases of the circulatory system; Z86.79 Personal history of other diseases of the circulatory system; Z85.828 Personal history of other malignant neoplasm of skin; Z79.899 Other long term (current) drug therapy
CPT/HCPCS: 36415; 80053; 80061; 83036; 83735; 83880; 84145; 84439; 84443; 84484; 85025; 86140; 93005; 93270; 93306; 96361; 96372; 96374; G0378; J1650; J2405; J7120

== ENCOUNTER 2025-08-25 16:13 | Emergency (ER) | payer MEDICARE, OTHER, SELFPAY ==
--- OUTSIDE RECORDS SUMMARY | 2025-07-18 11:30 | XMS_ITS | Encounter Summary ---
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) Procedures MR Orbits w and wo IV Contrast Jose Miguel Mendieta MD [address] [employer] [address] [place] [phone] Phone: tel: fax: Referral ID Status Reason Start Date Expiration Date Visits Re quested Visits Authorized [id number] Closed 07/18/2025 01/17/2027 1 1 * Imaging (Urgent) - Closed Specialty Diagnoses / Procedures Referred By Contac t Referred To Contact Radiology Diagnoses 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) Procedures CT Chest w IV Contrast Jose Miguel Mendieta MD [address] [place] [address] Phone: tel: fax: Referral ID Status Reason Start Date Expiration Date Visits Re quested Visits Authorized [id number] Closed 07/18/2025 01/17/2027 1 1 * Imaging (Urgent) - Closed Specialty Diagnoses / Procedures Referred By Contac t Referred To Contact Radiology Diagnoses 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) Procedures CT Abdomen Pelvis w IV Contrast Jose Miguel Mendieta MD 110 [facility] [address] [place] [address] Phone: tel: fax: Referral ID Status Reason Start Date Expiration Date Visits Re quested Visits Authorized [id number] Closed 07/18/2025 01/17/2027 1 1 Encounter Details Date Type Department Care Team (Late st Contact Info) Description 07/18/2025 12:30 PM EDT Office Visit [facility] [address] [place] [address] Jose Miguel Mendieta MD [address] [address] 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); Exudative retinal detachment of left eye Social History Tobacco Use Types Packs/Day Years Used Date Smoking Tobacco: Former Cigarettes Q uit: 07/18/1975 Passive Smoke Exposure: Past Smokeless Tobacco: Never Tobacco Cessation:Counseling Given: No Sex and Gender Information Value Date Recorded Sex Assigned at Male 08/06/2025 6:08 PM EST Legal Sex Male 2:53 PM EDT Gender [...] involving Retina / Ocular Oncology services at [facility] in the care of Zaynab Lincoln [...] Care Team (Late st Contact Info) Description 12/05/2025 11:00 AM EST Office Visit [facility] [address] [place] [address] Sridhar Mathew MD [address] [place] [address] Scheduled Orders Name Type Priority [...] multiecho sequences were obtained utilizing T1 and [id number] and axial diffusion weighted images through the [...] the medial aspect of the globe measures [id number] mm AP by 11 mm transverse by [...] Luisa Harkins MD on 07/30/2025 11:36 AM Jose [...] 3:20 PM us Jose Miguel Mendieta MD IM CT PROCEDURES Final Result * CT Abdomen [...] OPH ULTRASOUND Edited Result - Final * B-Scan [...] Retinal Detachment us Jose Miguel Mendieta MD OPHTH PHOTOGRAPHY Final Result * OCT, Retina - [...]
--- OUTSIDE RECORDS SUMMARY | 2025-07-18 11:40 | XMS_ITS | Encounter Summary ---
Author Organization [facility] Address [address] [place] [address] Care Team Providers Care Post Doctoral Researcher Name Role Phone Unavailable Primary Care Provider Unavailabl e Encounter Details Date Type Department Care Team (Late st Contact Info) Description 07/18/2025 12:40 PM EDT Ancillary Procedure [facility] [address] [place] [address] Social History Tobacco Use Types Packs/Day Years Used Date Smoking Tobacco: Former Cigarettes Q uit: 07/18/1975 Passive Smoke Exposure: Past Smokeless Tobacco: Never Sex and Gender Information Value Date Recorded Sex Assigned at Male 08/06/2025 6:08 PM EST Legal Sex Male 2:53 PM EDT Gender Identity Not on file Sexual Orientation Not on file documented as of this encounter Plan of Treatment Upcoming Encounters Date Type Department Care Team (Late st Contact Info) Description 12/05/2025 11:00 AM EST Office Visit [facility] [address] [place] [address] Sridhar Mathew MD [address] [address] documented as of this encounter Procedures Procedure Name Priority Date/Time Associated Diagnosis Comments OCT, RETINA - OU - BOTH EYES Routine 07/18/2025 5:44 PM EDT 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
--- OUTSIDE RECORDS SUMMARY | 2025-07-18 11:40 | XMS_ITS | Encounter Summary ---
Author Organization [facility] Address [address] [place] [address] Care Team Providers Care Chain Testing Machine Operator Name Role Phone Unavailable Primary Care Provider Unavailabl e Encounter Details Date Type Department Care Team (Late st Contact Info) Description 07/18/2025 12:40 PM EDT Ancillary Procedure [facility] [address] [place] [address] Social History Tobacco Use Types [...] Description 12/05/2025 11:00 AM EST Office Visit [facility] [address] [place] [address] Sridhar Mathew MD [address] [address] documented as of this encounter [...]
--- OUTSIDE RECORDS SUMMARY | 2025-07-26 11:35 | XMS_ITS | Encounter Summary ---
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) Procedures CT Chest w IV Contrast Jose Miguel Mendieta MD [address] [employer] [address] [place] [phone] Phone: tel: fax: Referral ID Status Reason Start Date Expiration Date Visits Re quested Visits Authorized [id number] Closed 07/18/2025 01/17/2027 1 1 * Imaging (Urgent) - Closed Specialty Diagnoses / Procedures Referred By Contac t Referred To Contact Radiology Diagnoses 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) Procedures CT Abdomen Pelvis w IV Contrast Jose Miguel Mendieta MD [address] [place] [address] Phone: tel: fax: Referral ID Status Reason Start Date Expiration Date Visits Re quested Visits Authorized [id number] Closed 07/18/2025 01/17/2027 1 1 Reason for Visit * Imaging (Urgent) - Closed Specialty Diagnoses / Procedures Referred By Contac t Referred To Contact Radiology Diagnoses 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) Procedures CT Abdomen Pelvis w IV Contrast Jose Miguel Mendieta MD [address] [place] [address] Phone: tel: fax: Referral ID Status Reason Start Date Expiration Date Visits Re quested Visits Authorized [id number] Closed 07/18/2025 01/17/2027 1 1 Encounter Details Date Type Department Care Team (Latest Contact Info) Description 07/26/2025 12:35 PM EDT - 07/26/2025 11:59 PM EDT Hospital Encounter [facility] [address] [place] [address] 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 Caring for Yourself after Contrast Imaging If you had ORAL contrast: You can go back to your normal diet and activities as tolerated. Drink plenty of fluids, unless told otherwise. If you had IV contrast: You can go back to your normal diet and activities as tolerated. Drink plenty of fluids, unless told otherwise. Leave a bandage on the site for 30 minutes (where the IV was inserted or blood was drawn). If you had Intravesical (bladder) contrast: Return to normal diet and activity. What you need to know about delayed reaction to IV contrast What is IV Contrast? Contrast is a dye that is put into your body through an IV. It is used for imaging scans such as CT scans and MRIs. The contrast makes blood vessels, organs and other parts of your body show up better on the scan. What do I need to do after IV contrast? Drink lots of fluids. This will help flush the contrast out of your system. Drink 2-3 extra glasses or bottles of water within 4 hours of your scan. What is a contrast reaction? A contrast reaction is a bad side effect from the contrast dye. It is rare but it does happen. They can be mild - such as sneezing, itching, or hives. They can be severe - such as trouble breathing, throat swelling, and irregular heart beat. When do these reactions happen? They often happen right after the contrast is injected. Some happen hours after going home. Go to the nearest Emergency Department right away if you have any of these symptoms after you leavethe clinic or hospital. Sneezing Itching in your mouth, throat, eyes, ears, or skin Rash or hives Throwing up or stomach sickness High heart rate or ???racing?? of your heart Feeling dizzy or woozy Feeling short of breath or like you can???t take a deep breath Feeling very anxious for no other reason It is very important that these reactions be treated. Tell the doctor or nurse that you are having a reaction to IV contrast dye. Do not ignore any sign of a reaction! All reactions must be assessed by a doctor. Call 911 if you are alone and your reaction is more than mild sneezing or itching. If you have a mild reaction, call to speak with a Radiologist, explain that you havehad a contrast reaction, as this needs to be added to your medical record. documented in this encounter Medications at Time of Discharge acetaminophen (Tylenol) 500 MG tablet Take 2 tablets by mouth every 6 hours as needed. HYDROcodone-aceta minophen ([place]) 5-325 MG tablet Take 1 tablet by mouth every 6 hours as needed for severe pain. 10 tablet 08/02/2025 ondansetron (Zofran) 4 MG tablet Take 1 tablet by mouth every 8 hours as needed for nausea or vomiting. 20 tablet 08/02/2025 documented as of this encounter Plan of Treatment Upcoming Encounters Date Type Department Care Team (Late st Contact Info) Description 12/05/2025 11:00 AM EST Office Visit [facility] [address] [facility] [place] [address] Sridhar Mathew MD [address] [place] [address] documented as of this encounter Goals Goal Patient Goal Type Associated Problems Recent Progress Patient-Stated? 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) documented in this encounter Results * CT Chest w IV Contrast (07/26/2025 [...] Santy Olson MD on 07/26/2025 3:20 PM Jose Miguel Mendieta MD IMG CT PROCEDURES [...] Lynn Corrales MD on 07/26/2025 2:11 PM Jose Miguel Mendieta MD IMG CT PROCEDURES Final Result documented in this encounter Visit Diagnoses Diagnosis 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) documented in this encounter Administered Medications Inactive Administered Medications - up to 3 most recent administrations Medication Order MAR Action Action Date Dose Rate Site iohexol (OMNIPaque) 300 MG/ML injection 100 mL 100 mL, Intravenous, Once in imaging, 1 dose, Starting on Gretta 07/26/25 at 1242, Until Gretta 07/26/25 at 1336, Routine, Imaging Protocol Orders Given 07/26/2025 1:36 PM EDT 100 mL iohexol (OMNIPaque) 9 MG/ML oral contrast 500 mL 500 mL, Oral, Once in imaging, 1 dose, Starting on Gretta 07/26/25 at 1242, Until Gretta 07/26/25 at 1301, Routine, Imaging Protocol Orders Given 07/26/2025 1:01 PM EDT 500 mL documented in this encounter Additional Health Concerns Active Problems Noted Date Diagnosed Date Autogenerated Problem 08/03/2025 Assessment Noted Time A fall risk assessment has been complete d for the patient 07/18/2025 12:58 PM EDT documented as of this encounter Care Teams Senior Product Development Manager Relationship Specialty Start Date End Date Pcp, No [address] [place] [address] PCP - General Family Medicine 07/26/25 documented as of this encounter
--- OUTSIDE RECORDS SUMMARY | 2025-07-30 06:33 | XMS_ITS | Encounter Summary ---
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) Procedures MR Orbits w and wo IV Contrast Jose Miguel Mendieta MD [address] [place] [phone] Phone: tel: fax: Referral ID Status Reason Start Date Expiration Date Visits Re quested Visits Authorized [id number] Closed 07/18/2025 01/17/2027 1 1 Reason for Visit * Imaging (Urgent) - Closed Specialty Diagnoses / Procedures Referred By Kira pino Referred To Contact Radiology Diagnoses 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) Procedures MR Orbits w and wo IV Contrast Jose Miguel Mendieta MD [address] [place] [address] Phone: tel: fax: Referral ID Status Reason Start Date Expiration Date Visits Re quested Visits Authorized [id number] Closed 07/18/2025 01/17/2027 1 1 Encounter Details Date Type Department Care Team (Latest Contact Info) Description 07/30/2025 7:33 AM EDT - 07/30/2025 11:59 PM EDT Hospital Encounter P[facility] A Radiology [address] [place] [address] 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 Wish to be (Past 1 Month) No 025 2:31 PM EDT Loraine Beebe, NAN 2. Non-Specific Active Suici danelle Thoughts (Past 1 Month) No 08/02/2025 2:31 PM EDT Tim Beebe RN 6. Suicidal Behavior (Lifetime) No 2:31 PM EDT Loraine Beebe RN documented as of this encounter Medications at Time of Discharge acetaminophen (Tylenol) 500 MG tablet Take 2 tablets by mouth every 6 hours as needed. HYDROcodone-aceta minophen ([place]) 5-325 MG tablet Take 1 tablet by [...] [facility] [address] [place] [address] Sridhar Mathew MD [address] [facility] [address] [place] [address] documented as of this encounter Goals Goal Patient Goal Type Associated Problems Recent Progress Patient-Stated? Author Autogenera kaylie Goal Care Plan Autogenerated Problem No Leslie Franklin documented as of this encounter Procedures Procedure Name Priority Date/Time Associated Diagnosis Comments MR ORBITS W AND WO IV CONTRAST STAT 07/30/2025 8:22 AM EDT Malignant melanoma of choroid of left [...] multiecho sequences were obtained utilizing T1 and S5riixindtp and axial diffusion weighted images through the [...] the medial aspect of the globe measures [id number] mm AP by 11 mm transverse by [...] signing this report, I, the attending physician, robert I have personally reviewed the images/data for the aboveexamination(s) and agree with the final edited report. 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) documented in this encounter Administered Medications Inactive Administered Medications - up to 3 most recent administrations Medication Order MAR Action Action Date Dose Rate Site gadobutrol (Gadavist) injection 7.6 mL 7.6 mL (0.1 mL/kg 76 kg), Intravenous, Once in imaging, 1 dose, Starting on Wed07/30/25 at 0804, Until Wed07/30/25 at 0809, Routine, Imaging Protocol Orders Given 07/30/2025 8:09 AM EDT 7.6 mL documented in this encounter Additional Health Concerns Active Problems Noted Date Diagnosed Date Autogenerated Problem 08/03/2025 Assessment Noted Time A fall risk assessment has been complete d for the patient 07/18/2025 12:58 PM EDT A Body Mass Index follow-up plan has been documented for the patient 07/30/2025 12:13 PM EDT documented as of this encounter Care Teams Tool And Die Maker Apprentice Relationship Specialty Start Date End Date Pcp, [place] [address] PCP - General Family Medicine 07/26/25 documented as of this encounter
--- OUTSIDE RECORDS SUMMARY | 2025-07-30 10:30 | XMS_ITS | Encounter Summary ---
Author Organization [facility] Address [address] [place] [address] Care Team Providers Care Weaver Tire Cord Name Role Phone Pcp, No Primary Care Provider Unavailabl e Reason for Visit * Reason Comments eye melanoma Encounter Details Date Type Department Care Team (Late st Contact Info) Description 07/30/2025 11:30 AM EDT Office Visit [facility] [address] [place] [address] Sridhar Mathew MD [address] [address] Malignant melanoma of choroid of [...] of common ophthalmology abbreviations, please refer to: https://www.aao.org/young-ophthalmologists/yo-info/article/ykyewuje-xnnqz-vxehdt lmic-abbreviations Cosigned by Sridhar Mathew MD at [...] Description 12/05/2025 11:00 AM EST Office Visit [facility] [address] [place] [address] Sridhar Mathew MD [address] [place] [address] documented as of this encounter [...] documented as of this encounter Care Teams Weaver Tire Cord Relationship Specialty Start Date End Date Pcp, Judit [address] [place] [address] PCP - General Family Medicine 07/26/25 documented as of this encounter
--- OUTSIDE RECORDS SUMMARY | 2025-08-01 15:15 | XMS_ITS | Encounter Summary ---
Author Organization Healthcare Address [address] 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) Procedures MR Abdomen w and wo IV Contrast Jose Miguel Mendieta MD [address] [place] [address] Phone: tel: fax: Referral ID Status Reason Start Date Expiration Date Visits Re quested Visits Authorized [id number] Closed 07/27/2025 01/26/2027 1 1 Reason for Visit * Imaging (Urgent) - Closed Specialty Diagnoses / Procedures Referred By Kira pino Referred To Contact Radiology Diagnoses 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) Discharge Disposition: Home or Self Care Social History Tobacco Use Types Packs/Day Years Used Date Smoking Tobacco: Former Cigarettes Q uit: 07/18/1975 Passive Smoke Exposure: Past Smokeless Tobacco: Never Alcohol Use Standard Drinks/Week Comments Not Currently 0 (1 standard drink = 0.6 oz pur e alcohol) Sex and Gender Information Value Date Recorded Sex Assigned at Male 08/06/2025 6:08 PM EST Legal Sex Male 2:53 PM EDT Gender Identity Not on file Sexual Orientation Not on file documented as of this encounter Functional Status * Calculated C-SSRS Risk Score (Lifetime/Recent) Answer Date of Assessment Author No Risk Indicated 08/06/2025 5:04 PM Michell Mcneal RN * Question Answer Date of Assessment Author 1. Wish to be (Past 1 Month) No 025 5:04 PM Michell Mcneal RN 2. Non-Specific Active Suici danelle Thoughts (Past 1 Month) No 08/06/2025 5:04 PM Michael Mcneal RN 6. Suicidal Behavior (Lifetime) No 5:04 PM Michell Mcneal RN documented as of this encounter Medications at Time of Discharge acetaminophen (Tylenol) 500 MG tablet Take 2 tablets by mouth every 6 hours as needed. HYDROcodone-aceta minophen ([place]) 5-325 MG tablet Take 1 tablet by [...] Description 12/05/2025 11:00 AM EST Office Visit [facility] [address] [place] [address] Sridhar Mathew MD [address] [address] documented as of this encounter Goals Goal Patient Goal Type Associated Problems Recent Progress Patient-Stated? 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 No evidence of disease progression. Unchanged multiple hepatic cysts of varying sizes and shapes. No evidence of metastatic melanoma to the abdomen. Evidence of cholelithiasis with enhancing thick walled gallbladder and surrounding hyperemia without significant pericholecystic fluid, which could represent chronic vs. acute on chronic cholecystitis. Clinical correlation recommended. CRITICAL RESULT: No. COMMUNICATION: Per this written report. By electronically signing this report, I, the attending physician, attest that I have personally reviewed the images/data for the above examination(s) and agree with the final edited report. Drafted by Deepthi Mackay MD on 08/02/2025 8:46 AM Final report signed by Jeffy Escobar MD on 08/02/2025 9:49 AM Narrative 08/02/2025 9:49 AM EDT CLINICAL INDICATION: UVeal Melanoma Systemic surveillance TECHNIQUE: MR imaging of the abdomen was performed with and without intravenous contrast material using the following sequences: coronal single shot T2 weighted fast spin echo, axial T2 weighted sequences with and without fat saturation, axial dual phase gradient echo, pre and dynamic postcontrast 3-D T1 weighted gradient echo with fat saturation (axial and coronal), and axial diffusion. 7.6 mL of Gadavist was administered. Multiplanar multisequence MRI of the pelvis was also undertaken before and after the administration of intravenous contrast material. COMPARISON: 07/26/2025 CT abdomen and pelvis FINDINGS: Lower Chest: No suspicious findings. Liver, Gallbladder, Biliary Tract: There are multiple T2 hyperintense lesions of varying sizes and shapes and some with internal septations throughout the liver without T1 hyperenhancement, consistent with benign hepatic cysts. Evidence of cholelithiasis with enhancing thick walled gallbladder and surrounding hyperemia without significant pericholecystic fluid. No intra or extrahepatic biliary ductal dilatation. Spleen: Normal splenic size. No suspicious splenic lesions. Pancreas: Unremarkable. No pancreatic ductal dilatation or suspicious lesions. Adrenal Glands: 15 mm left adrenal gland nodule, likely an adenoma (series 4, image 39). Kidneys: Redemonstrated bilateral renal calculi with largest measuring 9 mm within the inferior renal pole the left kidney. No hydronephrosis. Lymph Nodes: No lymphadenopathy by CT size criteria. Vasculature: The aortoiliac vasculature is normal in caliber and patent throughout demonstrating moderate atherosclerotic changes. GI Tract/Mesentery/Peritoneum: The large and small bowel appear normal in caliber. Small bowel diverticulosis, better visualized on prior CT. No evidence of inflammatory change. No suspicious peritoneal/mesenteric findings.. Free Fluid: No ascites. Musculoskeletal and Body Wall: No clearly aggressive bone lesions. Levoscoliosis of the lumbar spine. Procedure Note Jeffy Escobar MD - 08/02/2025 CLINICAL INDICATION: UVeal Melanoma Systemic surveillance TECHNIQUE: MR imaging of the abdomen was performed with and without intravenouscontrast material using the following sequences: coronal single shot [id number] fast spin echo, axial T2 weighted sequences with and without fatsaturation, axial dual phase gradient echo, pre and dynamic postcontrast3-D T1 weighted gradient echo with fat saturation (axial and coronal), andaxial diffusion. 7.6 mL of Gadavist was administered. Multiplanarmultisequence MRI of the pelvis was also undertaken before and after theadministration of intravenous contrast material. COMPARISON: 07/26/2025 CT abdomen and pelvis FINDINGS: Lower Chest: No suspicious findings. Liver, Gallbladder, Biliary Tract: There are multiple T2 hyperintenselesions of varying sizes and shapes and some with internal septationsthroughout the liver without T1 hyperenhancement, consistent with benignhepatic cysts. Evidence of cholelithiasis with enhancing thick walledgallbladder and surrounding hyperemia without significant pericholecysticfluid. No intra or extrahepatic biliary ductal dilatation. Spleen: Normal splenic size. No suspicious splenic lesions. Pancreas: Unremarkable. No pancreatic ductal dilatation or suspiciouslesions. Adrenal Glands: 15 mm left adrenal gland nodule, likely an adenoma (series4, image 39). Kidneys: Redemonstrated bilateral renal calculi with largest measuring 9mm within the inferior renal pole the left kidney. No hydronephrosis. Lymph Nodes: No lymphadenopathy by CT size criteria. Vasculature: The aortoiliac vasculature is normal in caliber and patentthroughout demonstrating moderate atherosclerotic changes. GI Tract/Mesentery/Peritoneum: The large and small bowel appear normal incaliber. Small bowel diverticulosis, better visualized on prior CT. Noevidence of inflammatory change. No suspicious peritoneal/mesentericfindings.. Free Fluid: No ascites. Musculoskeletal and Body Wall: No clearly aggressive bone lesions.Levoscoliosis of the lumbar spine. IMPRESSION: Slightly motion compromised exam. No evidence of disease progression. Unchanged multiple hepatic cysts of varying sizes and shapes. No evidenceof metastatic melanoma to the abdomen. Evidence of cholelithiasis with enhancing thick walled gallbladder andsurrounding hyperemia without significant pericholecystic fluid, whichcould represent chronic vs. acute on chronic cholecystitis. Clinicalcorrelation recommended. CRITICAL RESULT: No. COMMUNICATION: Per this written report. By electronically signing this report, I, the attending physician, attbobbithat I have personally reviewed the images/data for the aboveexamination(s) and agree with the final edited report. 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) documented in this encounter Administered Medications Inactive Administered Medications - up to 3 most recent administrations Medication Order MAR Action Action Date Dose Rate Site gadobutrol (Gadavist) injection 7.6 mL 7.6 mL (rounded from 7.56 mL = 0.1 mL/kg 75.6 kg), Intravenous, Once in imaging, 1 dose, Starting on Wed08/01/25 at 1635, Until Wed08/01/25 at 1708, Routine, Imaging Protocol Orders Given 08/01/2025 5:08 PM EDT 7.6 mL Left Antecubital documented in this encounter Additional Health Concerns Active Problems Noted Date Diagnosed Date Autogenerated Problem 08/03/2025 Assessment Noted Time A fall risk assessment has been complete d for the patient 07/18/2025 12:58 PM EDT A Body Mass Index follow-up plan has been documented for the patient 07/30/2025 12:13 PM EDT documented as of this encounter Care Teams Client Service Consultant Relationship Specialty Start Date End Date Pcp, [place] [address] PCP - General Family Medicine 07/26/25 documented as of this encounter
--- OUTSIDE RECORDS SUMMARY | 2025-08-02 10:59 | XMS_ITS | Encounter Summary ---
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] Procedures [place] REMOVE EYE W MUSC TO IMPLANT Left enucleation with orbital implant insertion Sridhar Mathew MD [address] [address] Phone: tel: fax: [facility] [address] [place] [phone] Phone: tel: Referral ID Status Reason Start Date Expiration Date Visits Re quested Visits Authorized [id number] 1 1 Encounter Details Date Type Department Care Team (Latest Contact Info) Description 08/02/2025 11:59 AM EDT - 08/02/2025 6:24 PM EDT Hospital Encounter [facility] [address] [place] [phone] Sridhar Mathew MD [address] [address] Malignant melanoma of choroid of [...] Mcneal RN documented as of this encounter Discharge Instructions * Discharge Instructions* Beverly Gonzalez RN - 08/02/2025 4:45 PM EDT Images from the original note were not included. Post-Anesthesia and Postoperative Instructions (UK) In order to have a fast and [...] Room or call the Emergency Department at [phone]. Smoking and its health risks Smoking is [...] help quitting smoking, call the National Cancer [place]'s Quitline toll free at or ask your doctor for help. Weight Management Weighing too much is not good for your health. Being overweight increases your risk of health conditions such as heart problems, high blood pressure, type 2 diabetes, and certain types of cancer. Being overweight can also increase your risk for osteoarthritis (ze-twl-fz-pll-OOSY-hey) (joint disease), sleep apnea (abnormal breathing at [...] risk of health problems. Ask your dietitian, claim analyst or doctor about a weight loss goal [...] of controlled substances: Drug Enforcement Agency (JANE): http://www.deadiversion.DentLightoiLEVEL Solutions.gov/drug_disposal/takeback/index.htm National Association of Drug Diversion Investigators (NADDI): http://rxdrugdropbox.org/ [place] Office of Drug Control Policy: http://odcp.al.gov/Prescription+Drug+Drop+Box+Sites.htm Are there concerns about or ? Before [...] that tracks prescriptions of controlled substances in [place]. The FELICE report tells your doctor if you have been prescribed controlled substances in the past. Doctors must get a FELICE report before prescribing controlled substances. What can I do if the information in my FELICE report is wrong? You or your doctor may contact the dispenser who reported the information to FELICE. If the dispenser agrees that the information should be changed, he or she can fix the FELICE report. However, the dispenser may certify that the report is correct. If that is the case, you or your doctor may then call the [place] Drug Enforcement and Professional Practices Branch at [...] Your local health department may offer these. [place]'s resources to help you quit: http://www.[facility]/TobaccoFree/ - Click on the Quit Here! tab. A telephone quit line: (1-118-LQTDNUW) Web sites: www.smokefree.gov, www.Avieon.Traackr, www.Zaarly Tobacco Treatment Counselors: Call 375-875-7784. Medicare and Medicaid pay for this. employees, retirees, and their spouses or sponsored dependents can get free nicotine replacementtherapy and coaching. Visit www.[facility]/HR/Wellness/consults.html. [facility]: [...] 6 hours as needed. HYDROcodone-aceta minophen ([place]) 5-325 MG tablet Take 1 tablet by [...] you can call the Eye Clinic at [phone] Mathew's front office specialist at [phone]. Nights, weekends or holidays, call [phone] and ask for the eye surgeon security control room officer. * Op Note - Sridhar Mathew MD - 08/02/2025 4:12 PM EDT Operative Note Date: 08/02/25 Location: [facility] OR Name: Zaynab Lincoln, : [...] in all escalante portions of the procedure. COMPUTER PROJECT MANAGER SURGEON: Medina Gaxiola MD; Kaveh Fuller MD [...] card, photo ID, along with power of litigation attorney associate, guardianship or advanced directives if applicable Do [...] Description 12/05/2025 11:00 AM EST Office Visit [facility] [address] [place] [address] Sridhar Mathew MD [address] [phone] documented as of this encounter Goals Goal Patient Goal Type Associated Problems Recent Progress Patient-Stated? 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 The results will be issued in an addendum. 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] Per electronic medical record, the clinical history is significant for: - Clinical Features: - Melanotic elevated pigmented cilliochoroidal mass - Exudative Retinal Detachment + - USG : Basal Dimensions 16.51*16.87 mm; Thickness 12.55 mm; Acoustic hollowness: yes - UBM confirms CB involvement - transillumination shows pigmentation from 7:00 - 12:00 12:25 PM [facility] Special and Immunohistochemical Stains Special Stain: A1-6 PAS: highlights Descemet's membrane with abundant guttae IHC: A1-7 Melan-A Red Chromogen: highlights melanocytic tumor cells infiltrating the iris and angle All controls show appropriate reactivity. All immunohistochemist ry, in situ hybridization, and histochemical tests were developed by and are performed at the [facility], [address] [place] [address]. All tests reported here, except those addressing [...] negativity on decalcified specimens. 5 12:25 PM [facility] Gross Description A. LEFT GLOBE One specimen [...] A2 Cold Time: <1m 12:25 PM EST [facility] Note: A resident was involved in the service. I attest I examined the relevant preparations for the specimens and confirmed the diagnosis or interpretation. 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
--- OUTSIDE RECORDS SUMMARY | 2025-08-02 12:40 | XMS_ITS | Encounter Summary ---
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] Procedures [place] REMOVE EYE W MUSC TO IMPLANT Left enucleation with orbital implant insertion Sridhar Mathew MD [address] [place] [phone] Phone: tel: fax: [facility] [address] [place] [phone] Phone: tel: Referral ID Status Reason Start Date Expiration Date Visits Re quested Visits Authorized [id number] 1 1 Encounter Details Date Type Department Care Team (Late st Contact Info) Description 08/02/2025 1:40 PM EDT - 08/02/2025 3:10 PM EDT Surgery [facility] [address] [place] [phone] Sridhar Mathew MD [address] [address] Left enucleation with orbital implant insertion [32239 (CPT )] Surgery Details Date/Time Status Location OR Service Patient Class Case Class Case Type Trauma Case? 08/02/2025 1:40 PM Posted MELISSA FONTAINE OR 4OR01 Ophthalmology [facility] Outpatient Surgery E-Electi ve Panel 1 Procedure [facility] An[facility] Op Region [...] Room or call the Emergency Department at [phone]. Smoking and its health risks Smoking is [...] help quitting smoking, call the National Cancer [place]'s Quitline toll free at or ask your doctor for help. Weight Management Weighing too much is not good for your health. Being overweight increases your risk of health conditions such as heart problems, high blood pressure, type 2 diabetes, and certain types of cancer. Being overweight can also increase your risk for osteoarthritis (ei-zji-jx-eyj-BBNO-mmn) (joint disease), sleep apnea (abnormal breathing at [...] risk of health problems. Ask your dietitian, partition notcher or doctor about a weight loss goal [...] Association of Drug Diversion Investigators (NADDI): http://rxdrugdropbox.org/ [place] Office of Drug Control Policy: http://odcp.[place].gov/Prescription+Drug+Drop+Box+Sites.htm Are there concerns about or ? Before [...] or purple What is a FELICE report? [employer] is a system that tracks prescriptions of controlled substances in [place]. The FELICE report tells your doctor if you have been prescribed controlled substances in the past. Doctors must get a FELICE report before prescribing controlled substances. What can I do if the information in my FELICE report is wrong? You or your doctor may contact the dispenser who reported the information to [employer]. If the dispenser agrees that the information should be changed, he or she can fix the FELICE report. However, the dispenser may certify that the report is correct. If that is the case, you or your doctor may then call the [place] Drug Enforcement and Professional Practices Branch at [...] these. 's resources to help you quit: http://www.[facility]/TobaccoFree/ - Click on the Quit Here! tab. A telephone quit line: (6-879-WTNJBEU) Web sites: www.smokefree.gov, www.[employer], www.[employer] Tobacco Treatment Counselors: Call 024-183-0923. Medicare and Medicaid pay for this. employees, retirees, and their spouses or sponsored dependents can get free nicotine replacementtherapy and coaching. Visit www.[facility]/HR/Wellness/consults.html. [facility] [...] every 6 hours as needed. HYDROcodone-aceta minophen ([place]) 5-325 MG tablet Take 1 tablet by [...] you can call the Eye Clinic at [phone] Mathew's surveillance officer at [phone]. Nights, weekends or holidays, call [phone] and ask for the eye surgeon senior applications developer. * Op Note - Sridhar Mathew MD - 08/02/2025 4:12 PM EDT Operative Note Date: 08/02/25 Location: [facility] OR Name: Zaynab Lincoln, : 1945, [...] in all escalante portions of the procedure. ROPE RIDER SURGEON: Medina Gaxiola MD; Kaveh Fuller MD [...] card, photo ID, along with power of workers compensation attorney, guardianship or advanced directives if applicable [...] Description 12/05/2025 11:00 AM EST Office Visit [facility] [address] [place] [address] Sridhar Mathew MD [address] [address] documented as of this encounter Goals Goal Patient Goal Type Associated Problems Recent Progress Patient-Stated? 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 The results will be issued in an addendum. 12:25 PM EST [facility] Synoptic Checklist UVEAL MELANOMA UVEAL MELANOMA [...] (no nodes submitted or found) 12:25 PM [facility] Clinical Information Malignant melanoma of choroid of [...] from 7:00 - 12:00 5 12:25 PM [facility] Special and Immunohistochemical Stains Special Stain: A1-6 PAS: highlights Descemet's membrane with abundant guttae IHC: A1-7 Melan-A Red Chromogen: highlights melanocytic tumor cells infiltrating the iris and angle All controls show appropriate reactivity. All immunohistochemist ry, in situ hybridization, and histochemical tests were developed by and are performed at the [facility], [address] [place] [address]. All tests reported here, except those addressing [...] negativity on decalcified specimens. 5 12:25 PM [facility] Gross Description A. LEFT GLOBE One specimen [...] is placed in A2 Cold Time: <1m 5 12:25 PM EST [facility] Note: A resident was involved in the service. I attest I examined the relevant preparations for the specimens and confirmed the diagnosis or interpretation. 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
--- OUTSIDE RECORDS SUMMARY | 2025-08-02 14:59 | XMS_ITS | Encounter Summary ---
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] Procedures CO REMOVE EYE W MUSC TO IMPLANT Left enucleation with orbital implant insertion Sridhar Mathew MD [address] [place] [phone] Phone: tel: fax: [facility]OM[facility] [address] [place] [phone] Phone: tel: Referral ID Status Reason Start Date Expiration Date Visits Re quested Visits Authorized [id number] 1 1 Encounter Details Date Type Department Care Team (Late st Contact Info) Description 08/02/2025 3:59 PM EDT Anesthesia Event PAV [facility] [address] [place] [phone] Mayela Banerjee MD [address] [place] [address] Mariam Cuevas MD [address] [place] [phone] Anesthesia Record Procedure Summary Procedure Name [...] dentition unchanged; Removal Date: 08/02/25; Removal Time: 164208/02/25 160 by Daniela Kowalski CRNA 08/02/25 1643 by [...] Mcneal RN documented as of this encounter Miscellaneous Notes * Anesthesia Postprocedure [...] and Staff Patient location during procedure: OR CLIP LOADING MACHINE ADJUSTER: Daniela Kowalski CRNA Performed: CLIP LOADING MACHINE ADJUSTER Patient Condition Indications for airway management: anesthesia [...] ABG No results found for: PHART , OXO3NLW , PO2ART , SO2ART , BEART , ZBQ6XRT , HCTART , SODIUMART , POTASSIUMART , POCTCL , POCGLU , IONCALART , LACTATE No results found for: PH , PCO2 , PO2 , G0HKFQLD , BASEEXC , HCTSYR , KSYR , CLSYR , GLUSYR , CAION , LACTATE ECHO No echocardiogram results found for the past 12 months PFTs No results found for: JFN8YAK , MSR4LRUJ , NFO8EGS , FVCPRED BP Readings from Last 5 [...] Plan ASA 1 Plan was reviewed with: CLIP LOADING MACHINE ADJUSTER Anesthesia technique(s) discussed with the patient/family: general [...] Mother Cancer Father Cancer Sister Cancer Brother Malgaviota Hypertension Neg Hx [3] Social History Tobacco [...] Description 12/05/2025 11:00 AM EST Office Visit [facility] [address] [place] [address] Sridhar Mathew MD [address] [phone] documented as of this encounter Goals Goal Patient Goal Type Associated Problems Recent Progress Patient-Stated? Author Autogenera kaylie Goal Care Plan Autogenerated Problem No Leslie Franklin documented as of this encounter Procedures Procedure Name Priority Date/Time Associated Diagnosis Comments PB ANESTHESIA PLACEHOLDER Routine 08/02/2025 4:04 PM EDT CO AN ELECTIVE SUPRAGLOTTIC AIRWAY Routine 08/02/2025 4:04 PM EDT documented in this encounter Results * CO AN ELECTIVE SUPRAGLOTTIC AIRWAY, PB ANESTHESIA PLACEHOLDER (08/02/2025 4:04 PM EDT) Narrative Daniela Kowalski CRNA - 08/02/2025 4:04 PM EDT Daniela Kowalski CRNA 08/02/2025 4:10 PM Airway Date/Time: 08/02/2025 4:04 PM Reason: elective Airway not difficult General Information and Staff Patient location during procedure: OR CLIP LOADING MACHINE ADJUSTER: Daniela Kowalski CRNA Performed: LILO Patient Condition Indications for airway management: anesthesia Patient position: sniffing MILS maintained throughout Final Airway Details Final airway type: LMALMA Size: 4 LMA Type: normal Additional Comments Atraumatic, dentition unchanged us Randell Jones MD ANESTHESIA ORDERABLES Final Resu [...] 08/02/25 at 1515, Until Gretta 08/02/25 at 2025, Routine New Bag 08/02/2025 3:30 PM EDT [...] documented as of this encounter Care Teams Airplane Captain Relationship Specialty Start Date End Date Pcp, No [address] [place] [address] PCP - General Family Medicine 07/26/25 documented as of this encounter
--- OUTSIDE RECORDS SUMMARY | 2025-08-06 16:57 | XMS_ITS | Encounter Summary ---
Author Organization Healthcare Address [address] [place] [address] Care Team Providers Care Lead Front Desk Agent Name Role Phone Pcp, No Primary Care Provider Unavailabl e Reason for Visit * Reason Comments Eye Problem Pt co eye pain after recent surgery, sent here from [facility]. Surgreon concerned with possible bradycardia. Encounter Details Date Type Department Care Team ([facility] Contact Info) Description 08/06/2025 4:57 PM EST - 08/06/2025 9:05 PM EST Emergency [facility] Emergency Department [address] [place] [address] Rogelio Stanley MD [address] [place] [address] Ocular discharge (Primary Dx); Acute [...] every 6 hours as needed. HYDROcodone-aceta minophen ([place]) 5-325 MG tablet Take 1 tablet by [...] from the original note were not included. [facility] Department of Ophthalmology Ophthalmology Consult Note Requesting [...] 1 tablet, Oral, 2 times daily HYDROcodone-acetaminophen ([place]) 5-325 MG tablet 5 mg of hydrocodone, [...] common ophthalmology abbreviations, please refer to: https://www.aao.org/young-ophthal mologists/yo-info/article/izeibnpj-xbtal-bwwvvulwxc-abbreviations [1] Past Medical History: Diagnosis Date Dental [...] pain after recent surgery, sent here from [facility]. Surgreon concerned with possible bradycardia. PIT NOTE Zaynab Lincoln is a 80 y.o. male who presents to the ED with eye problem. Per , pt was experiencing CP and was taken to [facility]. At OSH pt was found to [...] patient after transfer to Main ED from [facility]. I personally performed my own history, [...] eye socket, so he was sent to [facility] for evaluation due to concern for possible post-operative infection. Denies fevers. technical support manager used: No Patient History Past Medical History[1] [...] 08/07/2025 0854 Date/Time Order Dose Route Action 08/06/2025 203 EST acetaminophen (Tylenol) tablet 1,000 mg 1,000 mg Oral Given All Other Orders Ordered Status Ordering Provider 08/06/25 1907 Inpatient consult to Ophthalmology Once Specialty: Ophthalmology Provider: (Not yet assigned) Completed MEO PEREIRA 08/06/25 1652 CMP STAT Final result [...] interpreted by me as sinus rhythm with [place] interval of 108 and presence of PVCs. [...] days for your symptoms. Disposition Discharge AVS (Cuban Snapshot) - Printed 08/06/2025 Follow-Ups: Schedule an [...] pain after recent surgery, sent here from [facility]. Surgreon concerned with possible bradycardia. documented in this encounter Plan of Treatment Upcoming Encounters Date Type Department Care Team (Late st Contact Info) Description 12/05/2025 11:00 AM EST Office Visit [facility] [address] [place] [address] Sridhar Mathew MD [address] [place] [address] documented as of this encounter [...] Reactive Non Reactive 08/06/2025 6:48 PM EST [facility] Comment:Screening for HIV 1 & 2 antibodies, and P24 antigen is NONREACTIVE. No confirmatory testing is required. Blood Venous blood specimen / Unknown Venipuncture / Unknown 08/06/2025 5:40 PM EST 08/06/2025 5:52 PM EST Lillian Garcia MD LAB BLOOD ORDERABLES Final Re sult Performing Organization Address City/[facility]/ZIP Co de Phone Number [facility] [address] [place] [address] * Hepatitis C Antibody - ED (08/06/2025 5:40 PM EST) Pathologist [facility] Hepatitis C Antibody Negative Negative 08/06/2025 6:46 PM EST [facility] Blood Venous blood specimen / Unknown Venipuncture / Unknown 08/06/2025 5:40 PM EST 08/06/2025 5:52 PM EST Lillian Garcia MD LAB BLOOD ORDERABLES Final Re sult Performing Organization Address City/[facility]/ZIP Co de Phone Number [facility] [address] [place] [address] * (ABNORMAL) CBC w/diff (08/06/2025 5:40 PM EST) Pathologist [facility] WBC Count 10.17 3.70 - 10.30 10*3/uL LAB HEMATOLOGY METHOD 08/06/2025 6:26 PM EST [facility] RBC Count 4.95 4.60 - 6.10 10*6/uL LAB HEMATOLOGY METHOD 08/06/2025 6:26 PM EST [facility] HGB 14.3 13.7 - 17.5 g/dL LAB HEMATOLOGY METHOD 08/06/2025 6:26 PM EST [facility] HCT 43.0 40.0 - 51.0 % LAB HEMATOLOGY METHOD 08/06/2025 6:26 PM EST [facility] Platelet Count 289 155 - 369 10*3/uL LAB HEMATOLOGY METHOD 08/06/2025 6:26 PM EST [facility] MCV 87 79 - 98 fL LAB HEMATOLOGY METHOD 08/06/2025 6:26 PM [facility] MCH 28.9 26.0 - 32.0 pg LAB HEMATOLOGY METHOD 08/06/2025 6:26 PM [facility] MCHC 33.3 30.7 - 35.5 g/dL LAB HEMATOLOGY METHOD 08/06/2025 6:26 PM [facility] RDW 13.4 11.5 - 14.5 % LAB HEMATOLOGY METHOD 08/06/2025 6:26 PM [facility] MPV 10.6 8.8 - 12.5 fL LAB HEMATOLOGY METHOD 08/06/2025 6:26 PM [facility] nRBC 0.0 <=0.0 per 100 WBCs LAB HEMATOLOGY METHOD 08/06/2025 6:26 PM [facility] Differential Type Automated LAB HEMATOLOGY METHOD 08/06/2025 6:26 PM [facility] Neutrophils % 83 % LAB HEMATOLOGY METHOD 08/06/2025 6:26 PM [facility] Lymphocytes % 8 % LAB HEMATOLOGY METHOD 08/06/2025 6:26 PM [facility] Monocytes % 9 % LAB HEMATOLOGY METHOD 08/06/2025 6:26 PM [facility] Eosinophils % 0 % LAB HEMATOLOGY METHOD 08/06/2025 6:26 PM [facility] Basophils % 0 % LAB HEMATOLOGY METHOD 08/06/2025 6:26 PM [facility] Immature Granulocytes % 0 % LAB HEMATOLOGY METHOD 08/06/2025 6:26 PM [facility] Neutrophils Absolute 8.43(H) 1.60 - 6.10 10*3/uL LAB HEMATOLOGY METHOD 08/06/2025 6:26 PM [facility] Lymphocytes Absolute 0.76(L) 1.20 - 3.90 10*3/uL LAB HEMATOLOGY METHOD 08/06/2025 6:26 PM [facility] Monocytes Absolute 0.91(H) 0.30 - 0.90 10*3/uL LAB HEMATOLOGY METHOD 08/06/2025 6:26 PM [facility] Eosinophils Absolute 0.01 0.00 - 0.50 10*3/uL LAB HEMATOLOGY METHOD 08/06/2025 6:26 PM [facility] Basophils Absolute 0.03 0.00 - 0.10 10*3/uL LAB HEMATOLOGY METHOD 08/06/2025 6:26 PM EST [facility] Immature Granulocytes Absolute 0.03 0.00 - 0.06 10*3/uL LAB HEMATOLOGY METHOD 08/06/2025 6:26 PM EST [facility] Blood Venous blood specimen / Unknown Venipuncture / Unknown 08/06/2025 5:40 PM EST 08/06/2025 5:57 PM EST Narrative [facility] - 08/06/2025 6:26 PM EST Therapeutic decision making should be based on absolute values, rather than percentages. Lillian Garcia MD LAB BLOOD ORDERABLES Final Re sult Performing Organization Address City/[facility]/ZIP Co de Phone Number [facility] [address] [place] [address] * (ABNORMAL) Magnesium (08/06/2025 5:40 PM EST) Magnesium, Plasma 1.8(L) 1.9 - 2.4 mg/dL 08/06/2025 6:34 PM EST [facility] Blood Venous blood specimen / Unknown Venipuncture / Unknown 08/06/2025 5:40 PM EST 08/06/2025 5:52 PM EST Lillian Garcia MD LAB BLOOD ORDERABLES Final Re sult Performing Organization Address City/[facility]/ZIP Co de Phone Number [facility] [address] [place] [address] * (ABNORMAL) CMP (08/06/2025 5:40 PM EST) Glucose, Plasma 107(H) 74 - 99 mg/dL 08/06/2025 6:34 PM EST [facility] BUN, Plasma 13 8 - 23 mg/dL 08/06/2025 6:34 PM EST [facility] Creatinine, Plasma 0.92 0.70 - 1.20 mg/dL 08/06/2025 6:34 PM EST [facility] BUN/Creatinine Ratio 14 08/06/2025 6:34 PM EST [facility] Sodium, Plasma 134(L) 136 - 145 mmol/L 08/06/2025 6:34 PM EST [facility] Potassium, Plasma 4.6 3.6 - 4.9 mmol/L 08/06/2025 6:34 PM EST [facility] Chloride, Plasma 98 97 - 107 mmol/L 08/06/2025 6:34 PM EST [facility] CO2, Plasma 26 22 - 29 mmol/L 08/06/2025 6:34 PM EST [facility] Anion Gap 10 6 - 16 mmol/L 08/06/2025 6:34 PM EST [facility] Total Calcium, Plasma 10.4(H) 8.9 - 10.2 mg/dL 08/06/2025 6:34 PM EST [facility] Total Protein 7.3 6.3 - 7.9 g/dL 08/06/2025 6:34 PM EST [facility] Albumin, Plasma 4.2 3.5 - 5.2 g/dL 08/06/2025 6:34 PM EST [facility] AST, Plasma 19 10 - 50 U/L 08/06/2025 6:34 PM EST [facility] Comment:Hemolyzed, result ma y be falsely increased. ALT, Plasma 20 10 - 50 U/L 08/06/2025 6:34 PM EST [facility] Alkaline Phosphatase, Plasma 122(H) 40 - 115 U/L 08/06/2025 6:34 PM EST [facility] Total Bilirubin, Plasma 0.8 0.2 - 1.1 mg/dL 08/06/2025 6:34 PM EST [facility] eGFRcr 84.6 mL/min/1.7 3m*2 08/06/2025 6:34 PM EST [facility] Comment:Reported eGFRcr in m L/min/1.73m2 is based the CKD-EPI 2020 equation that does not use a race coefficient. Blood Venous blood specimen / Unknown Venipuncture / Unknown 08/06/2025 5:40 PM EST 08/06/2025 5:52 PM EST us Lillian Garcia MD LAB BLOOD ORDERABLES Final Re sult [facility] [address] [place] [address] * EKG now - STAT (adult) (08/06/2025 5:08 PM EST) EKG DIAGNOSIS CLASS Abnormal MUSE ECG Ventricular Rate 66 BPM MUSE ECG Atrial Rate 66 BPM MUSE ECG [place] Interval 108 ms MUSE ECG QRSD Interval 104 ms MUSE ECG QT Interval 398 ms MUSE ECG QTC Interval 417 ms MUSE ECG P [place] 2 degrees MUSE ECG R [place] -27 degrees MUSE ECG T Wave [place] 52 degrees MUSE ECG Diagnosis Sinus rhythm with short [place] with occasional premature ventricular complexes MUSE ECG Diagnosis Minimal voltage criteria for LVH, may be normal variant ( [place] product ) MUSE ECG Diagnosis Poor R-wave progression ; consider septal infarct, lead placement, or normal variant MUSE ECG Diagnosis Abnormal ECG MUSE ECG Diagnosis MUSE ECG Diagnosis Confirmed by Nadine Raymundo ([id number]) on 08/07/2025 8:55:31 AM MUSE ECG 08/06/2025 [...] 1,000 mg, Oral, Once, 1 dose, On 08/06/25 at 2024, STAT 2031 (Given - Provid [...] documented as of this encounter Care Teams Lead Front Desk Agent Relationship Specialty Start Date End Date P[place], [place] [address] PCP - General Family Medicine 07/26/25 documented as of this encounter
--- OUTSIDE RECORDS SUMMARY | 2025-08-08 11:15 | XMS_ITS | Encounter Summary ---
Author Organization Healthcare Address [address] [place] [address] Care Team Providers Care Pharmaceutical Worker Name Role Phone Pcp, No Primary Care Provider Unavailabl e Reason for Visit * Reason Comments Post-op Encounter Details Date Type Department Care Team (Late st Contact Info) Description 08/08/2025 11:15 AM EST Office Visit [facility] [address] [place] [address] Sridhar Mathew MD [address] [address] Acquired anophthalmos (Primary Dx) Social History Tobacco Use Types [...] Progress Notes - Kaveh Fuller MD - 08/08/2025 11:15 AM EST Subjective Patient ID: Zaynab Lincoln is a 80 y.o. male. Chief Complaint Post-op HPI Post-op Post-Op Follow-Up 1 week. In left eye. Comments 80 yo male presents today for 1 week post op (Left) Left enucleation with orbital implant insertion. Last edited by Minor, Medina M, MD on 08/08/2025 11:03 AM. No current outpatient medications on file. (Ophthalmic Drugs) No current facility-administered medications for this visit. (Ophthalmic Drugs) Current Outpatient Medications (Other) Medication Sig acetaminophen (Tylenol) 500 MG tablet Take 2 tablets by mouth every 6 hours as needed. amoxicillin-clavulanate (Augmentin) 875-125 MG tablet Take 1 tablet by mouth 2 times a day for 10 days. HYDROcodone-acetaminophen ([place]) 5-325 MG tablet Take 1 tablet by mouth every 6 hours as needed for severe pain. ondansetron (Zofran) 4 MG tablet Take 1 tablet by mouth every 8 hours as needed for nausea or vomiting. No current facility-administered medications for this visit. (Other) Objective Base Eye Exam Visual Acuity (Snellen - Linear) Right Left Dist sc 20/30 unable to open Dist ph sc 20/25 -2 Pupils React Right + Left enuc Extraocular Movement Right Left enuc 0 0 0 0 0 0 0 0 -- -- -- -- -- -- -- -- Neuro/Psych Oriented x3: Yes Mood/Affect: Normal Slit Lamp and Fundus Exam External Exam Right Left External Normal Normal Slit Lamp Exam Right Left Lids/Lashes mild blepharitis, lateral DCL Tars suture in place, edema, echymosis, serous discharge,no evidence of infection or dehiscence purulence. Silk suture removed without difficulty. 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 Silk suture removed with nil complications/tolerated well. Conformer in situ in good position Wounds healing well No infection or dehiscence Cuff Maker referral placed Stop antibiotic eye ointment Monocular precautions discussed with pt Patient instructed to notify if any issues Tobacco Use: Medium Risk (08/08/2025) Patient History Smoking Tobacco Use: Former Smokeless Tobacco Use: Never Passive Exposure: Past The patient has been counseled on tobacco cessation: Not Applicable Cosigned by Sridhar Mathew MD at 08/08/2025 11:25 AM EST Associated attestation - Sridhar Mathew MD - 08/08/2025 11:25 AM EST I saw and evaluated the patient with the resident/fellow. I discussed the case with the resident/fellow and agree with the findings and plan as documented. documented in this encounter Plan of Treatment Upcoming Encounters Date Type Department Care Team (Late st Contact Info) Description 12/05/2025 11:00 AM EST Office Visit [facility] [address] [place] [address] Sridhar Mathew MD [address] [address] documented as of this encounter Goals Goal Patient Goal Type Associated Problems Recent Progress Patient-Stated? Author Autogenera kaylie Goal Care Plan Autogenerated Problem No Leslie Franklin documented as of this encounter Visit Diagnoses Diagnosis Acquired anophthalmos- Primary Acquired absence of organ, eye documented in this encounter Additional Health Concerns Active Problems Noted Date Diagnosed Date Autogenerated Problem 08/03/2025 Assessment Noted Time A fall risk assessment has been complete d for the patient 08/08/2025 10:46 AM EST A Body Mass Index follow-up plan has been documented for the patient 08/08/2025 11:25 AM EST documented as of this encounter Care Teams Pharmaceutical Worker Relationship Specialty Start Date End Date Pcp, No [address] [place] [address] PCP - General Family Medicine 07/26/25 documented as of this encounter
--- NOTE | 2025-08-25 16:22 | PC.NURSE ---
Called [facility] for a consult per Dr. Bran and they said they will call back.
--- OUTSIDE RECORDS SUMMARY | 2025-08-25 16:23 | XMS_ITS | Encounter Summary ---
Author Organization Healthcare Address [address] [place] [address] Care Team Providers Care Solar Technician Name Role Phone Pcp, No Primary Care Provider Unavailabl e Encounter Details Date Type Department Care Team (Latest Contact Info) Description 08/08/2025 Travel Social History Tobacco Use Types Packs/Day [...] Description 12/05/2025 11:00 AM EST Office Visit [facility] [address] [place] [address] Sridhar Mathew MD [address] [address] documented as of this encounter [...] documented as of this encounter Care Teams Solar Technician Relationship Specialty Start [place] [address] PCP - General Family Medicine 07/26/25 documented as of this encounter
--- OUTSIDE RECORDS SUMMARY | 2025-08-25 16:24 | XMS_ITS | Encounter Summary ---
Author Organization Healthcare Address [address] [place] [address] Care Team Providers Care Chief Mechanical Officer Name Role Phone Unavailable Primary Care Provider [...] Description 12/05/2025 11:00 AM EST Office Visit [facility] [address] [place] [address] Sridhar Mathew MD [address] [address] documented as of this encounter Visit Diagnoses Not on filedocumented in this encounter Additional Health Concerns Assessment Noted Time A fall risk assessment has been complete d for the patient 07/18/2025 12:58 PM EDT documented as of this encounter
--- OUTSIDE RECORDS SUMMARY | 2025-08-25 16:24 | XMS_ITS | Encounter Summary ---
Author Organization Healthcare Address [address] [place] [address] Care Team Providers Care Crank Hand Name Role Phone Pcp, No Primary Care [...] Description 12/05/2025 11:00 AM EST Office Visit [facility] [address] [place] [address] Sridhar Mathew MD [address] [address] documented as of this encounter [...] documented as of this encounter Care Teams Crank Hand Relationship Specialty Start Date End Date Pcp, [place] [address] PCP - General Family Medicine 07/26/25 documented as of this encounter
--- OUTSIDE RECORDS SUMMARY | 2025-08-25 16:24 | XMS_ITS | Encounter Summary ---
Author Organization Healthcare Address [address] [place] [address] Care Team Providers Care Wall Taper Name Role Phone Unavailable Primary Care Provider Unavailabl e Encounter Details Date Type Department Care Team (Late st Contact Info) Description 07/17/2025 Telephone [facility] [address] [place] [address] Jose Miguel Mendieta MD [address] [address] Social History Tobacco Use Types Packs/Day [...] Description 12/05/2025 11:00 AM EST Office Visit [facility] [address] [place] [address] Sridhar Mathew MD [address] [place] [phone] documented as of this encounter Visit Diagnoses Not on filedocumented in this encounter
--- OUTSIDE RECORDS SUMMARY | 2025-08-25 16:25 | XMS_ITS | Encounter Summary ---
Author Organization Healthcare Address [address] [place] [address] Care Team Providers Care Mosquito Sprayer Name Role Phone Pcp, No Primary Care Provider Unavailabl e Encounter Details Date Type Department Care Team (Latest Contact Info) Description 08/06/2025 Travel Social History Tobacco Use Types Packs/Day [...] Mcneal RN documented as of this encounter Plan of Treatment Upcoming Encounters Date Type Department Care Team (Late st Contact Info) Description 12/05/2025 11:00 AM EST Office Visit [facility] [address] [place] [phone] Sridhar Mathew MD [address] [place] [address] documented as of this encounter [...] documented as of this encounter Care Teams Mosquito Sprayer Relationship Specialty Start Date End Date Pcp, No [address] [place] [address] PCP - General Family Medicine 07/26/25 documented as of this encounter
--- OUTSIDE RECORDS SUMMARY | 2025-08-25 16:25 | XMS_ITS | Encounter Summary ---
Author Organization Healthcare Address [address] [place] [place] [id number] Care Team Providers Care Crop Supervisor Name Role Phone Pcp, No Primary Care Provider Unavailabl e Encounter Details Date Type Department Care Team (Late st Contact Info) Description 08/06/2025 Orders Only External Location [address] [place] [phone] Leonel Lara MD [address] [place] [address] Social History Tobacco Use Types Packs/Day Years [...] Behavior (Lifetime) No 5:04 PM Michell Mcneal R, RN documented as of this encounter Plan of Treatment Upcoming Encounters Date Type Department Care Team (Late st Contact Info) Description 12/05/2025 11:00 AM EST Office Visit [facility] [address] [place] [address] Sridhar Mathew MD [address] [place] [address] documented as of this encounter Goals Goal Patient Goal Type Associated Problems Recent Progress Patient-Stated? Author Autogenera kaylie Goal Care Plan Autogenerated Problem No Leslie Franklin documented as of this encounter Procedures Procedure Name Priority Date/Time Associated Diagnosis Comments XR OUTSIDE IMAGES 08/06/2025 10:10 AM EST documented in this encounter Results * XR OUTSIDE IMAGES (08/06/2025 10:10 AM EST) Anatomical Region Laterality Modality Radiographic Radha ging 08/06/2025 10:1 0 AM EST us Leonel Lara MD IMG XR PROCEDURES Edited Re sult - Final documented in this encounter Visit Diagnoses Not [...] documented as of this encounter Care Teams Crop Supervisor Relationship Specialty Start Date End Date Pcp, No [address] [place] [address] PCP - General Family Medicine 07/26/25 documented as of this encounter
--- OUTSIDE RECORDS SUMMARY | 2025-08-25 16:25 | XMS_ITS | Encounter Summary ---
Author Organization Healthcare Address [address] [place] [id number] Care Team Providers Care Conveyor Technician Name Role Phone Pcp, No Primary Care Provider Unavailabl e Encounter Details Date Type Department Care Team (Late st Contact Info) Description 08/06/2025 Orders Only External Location [address] [place] [phone] Leonel Lara MD [address] [place] [address] Social History Tobacco Use Types Packs/Day Years [...] Description 12/05/2025 11:00 AM EST Office Visit [facility] [address] [place] [address] Sridhar Mathew MD [address] [place] [address] documented as of this encounter Goals Goal Patient Goal Type Associated Problems Recent Progress Patient-Stated? Author Autogenera kaylie Goal Care Plan Autogenerated Problem No Leslie Franklin documented as of this encounter Procedures Procedure Name Priority Date/Time Associated Diagnosis Comments CT OUTSIDE IMAGES 08/06/2025 12:04 PM EST documented in this encounter Results * CT OUTSIDE IMAGES (08/06/2025 12:04 PM EST) Anatomical Region Laterality Modality Computed Tomogra phy 08/06/2025 12:0 4 PM EST us Leonel Lara MD IMG CT PROCEDURES Edited Re sult - Final documented [...] documented as of this encounter Care Teams Conveyor Technician Relationship Specialty Start Date End Date Pcp, No [address] [place] [address] PCP - General Family Medicine 07/26/25 documented as of this encounter
--- OUTSIDE RECORDS SUMMARY | 2025-08-25 16:25 | XMS_ITS | Encounter Summary ---
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] Procedures [facility] REMOVE EYE W MUSC TO IMPLANT Left enucleation with orbital implant insertion Sridhar Mathew MD [address] [address] Phone: tel: fax: [facility] [address] [place] [address] Phone: tel: Referral ID Status Reason Start Date Expiration Date Visits Re quested Visits Authorized [id number] 1 1 Encounter Details Date Type Department Care Team (Late st Contact Info) Description 08/14/2025 Lab Requisition [facility] [address] [place] [address] Katrin Ding MD [address] [place] [address] Malignant neoplasm of left choroid (CMS/HCC) Social History Tobacco Use Types Packs/Day Years [...] Description 12/05/2025 11:00 AM EST Office Visit [facility] [address] [place] [address] Sridhar Mathew MD [address] [place] [address] Pending Results Name Type Priority Associated Diagnoses Date /Time - AP Miscellaneous Test Lab Routine Malignant neoplasm of left choroid (CMS/HCC) 08/02/2025 4:26 PM EDT documented as of this encounter Goals Goal Patient Goal Type Associated Problems Recent Progress Patient-Stated? Author Autogenera kaylie Goal Care Plan Autogenerated Problem No Leslie Franklin documented as of this encounter Visit Diagnoses Diagnosis Malignant neoplasm of left choroid (CMS/HCC) documented in this encounter Additional Health Concerns Active Problems Noted Date Diagnosed Date Autogenerated Problem 08/03/2025 Assessment Noted Time A fall risk assessment has been complete d for the patient 07/18/2025 12:58 PM EDT A Body Mass Index follow-up plan has been documented for the patient 07/30/2025 12:13 PM EDT documented as of this encounter Care Teams Hadoop Developer Relationship Specialty Start Date End Date Pcp, Judit [address] [place] [address] PCP - General Family Medicine 07/26/25 documented as of this encounter
--- OUTSIDE RECORDS SUMMARY | 2025-08-25 16:25 | XMS_ITS | Encounter Summary ---
Author Organization Healthcare Address [address] [place] [address] Care Team Providers Care Cylinder Block Hole Reliner Name Role Phone Pcp, No Primary Care [...] Description 12/05/2025 11:00 AM EST Office Visit [facility] [address] [place] [address] Sridhar Mathew MD [address] [address] documented as of this encounter [...] documented as of this encounter Care Teams Cylinder Block Hole Reliner Relationship Specialty Start Date End Date Pcp, [place] [address] PCP - General Family Medicine 07/26/25 documented as of this encounter
--- OUTSIDE RECORDS SUMMARY | 2025-08-25 16:25 | XMS_ITS | Encounter Summary ---
Author Organization Healthcare Address [address] [id number] Care Team Providers Care Copy Supervisor Name Role Phone Pcp, No Primary Care Provider Unavailabl e Encounter Details Date Type Department Care Team (Late st Contact Info) Description 08/06/2025 Orders Only External Location [address] [place] [phone] Leonel Lara MD [address] [place] [address] Social History Tobacco Use Types Packs/Day Years [...] Description 12/05/2025 11:00 AM EST Office Visit [facility] [address] [place] [address] Sridhar Mathew MD [address] [place] [address] documented as of this encounter [...] documented as of this encounter Care Teams Copy Supervisor Relationship Specialty Start Date End Date Pcp, No [address] [place] [address] PCP - General Family Medicine 07/26/25 documented as of this encounter
--- OUTSIDE RECORDS SUMMARY | 2025-08-25 16:25 | XMS_ITS | Clinical Summary ---
Author Organization Healthcare Address [address] [place] [address] Care Team Providers Care Nc Manager Name Role Phone Pcp, No Primary Care Provider Unavailabl e Allergies No known active allergies Medications acetaminophen (Tylenol) 500 MG tablet Take 2 tablets by mouth every 6 hours as needed. Active HYDROcodone-sonia taminophen ([place]) 5-325 MG tablet Take 1 tablet by mouth every 6 hours as needed for severe pain. 10 tablet 08/02/2025 Active ondansetron (Zofran) 4 MG tablet Take 1 tablet by mouth every 8 hours as needed for nausea or vomiting. 20 tablet 08/02/2025 Active amoxicillin-cla vulanate (Augmentin) 875-125 MG tabletIndicatio ns:Ocular discharge Take 1 tablet by mouth 2 times a day for 10 days. 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 Encounters Date Type Department Care Team Description 08/14/2025 Lab Requisition [facility] [address] [place] [address] Katrin Ding MD Malignant neoplasm of left choroid (CMS/HCC) 08/08/2025 11:15 AM EST Office Visit [facility] [address] [place] [phone] Sridhar Mathew MD Acquired anophthalmos (Primary Dx) 08/08/2025 Travel 08/06/2025 4:57 PM EST - 08/06/2025 9:05 PM EST Emergency [facility] Emergency Department [address] [place] [address] Rogelio Stanley MD Ocular discharge (Primary Dx); Acute nonintractable headache, unspecified headache type Discharge Disposition: Home or Self Care 08/06/2025 Orders Only External Location [address] [place] [address] Leonel Lara MD 08/06/2025 Ophth Exam [facility] [address] [place] [address] Jacques Zhong MD 08/06/2025 Travel 08/06/2025 Orders Only External Location [address] [place] [address] Leonel Lara MD 08/06/2025 Orders Only External Location [address] [place] [phone] Leonel Lara MD 08/02/2025 3:59 PM EDT Anesthesia Event [facility] [address] [place] [address] Mayela Banerjee MD Ritchie-Dabney, Rosalind, MD 08/02/2025 1:40 PM EDT - 08/02/2025 3:10 PM EDT Surgery [facility] [address] [place] [address] Sridhar Mathew MD Left enucleation with orbital implant insertion [37503 (CPT )] 08/02/2025 11:59 AM EDT - 08/02/2025 6:24 PM EDT Hospital Encounter [facility] [address] [place] [phone] Sridhar Mathew MD 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) Discharge Disposition: Home or Self Care 07/30/2025 Travel 07/27/2025 Orders Only [facility] [address] [place] [address] Jose Miguel Mendieta MD 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); Exudative retinal detachment of left eye 07/26/2025 12:35 PM EDT - 07/26/2025 11:59 PM EDT Hospital Encounter [facility] [address] [place] [address] 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) Discharge Disposition: Home or Self Care 07/26/2025 Travel 07/18/2025 12:40 PM EDT Ancillary Procedure [facility] [address] [place] [address] 07/18/2025 12:40 PM EDT Ancillary Procedure [facility] [address] [place] [address] 07/18/2025 12:30 PM EDT Office Visit [facility] [address] [place] [address] Jose Miguel Mendieta MD 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); Exudative retinal detachment of left eye 07/18/2025 Travel 07/17/2025 Telephone [facility] [address] [place] [address] Jose Miguel Mendieta MD from Last 3 Months Family History Medical History Relation Name Comments Cancer Brother Cancer Father Heart disease Mother Cancer Sister Malgaviota Hypertension Neg Hx Relation Name Status Comments [...] Mass Index 28.32 08/06/2025 3:41 PM EST Plan of Treatment Upcoming Encounters Date Type Department Care Team (Late st Contact Info) Description 12/05/2025 11:00 AM EST Office Visit [facility] [address] [place] [address] Sridhar Mathew MD [address] [address] Health Maintenance Due Date Last Done Comments [facility]-Depression Screening 1945 [facility]-Medicare Annual Wellness (AWV) 1945 [facility]-Infant/Child/Adol SDOH Screenings [...] r (1 - 1-dose 75+ series) 2021 [id number] Vaccine (3 - Pfizer risk series) 07/09/2021 06/11/2021, 05/21/2021 [facility]-Influenza Vaccine (#1) 2025 [facility]-Hepatitis C Screening Completed 08/06/2025 [facility]-Obesity Intervention Completed 025, 07/30/2025 HPV Vaccines Aged Out No longer [...] [employer] Implanted Type Area Talent Sourcing Specialist Device Identifier Shelf Expiration Date Model / Serial / Lot Conformer Large W/Holes - [id number] Implanted:07/06 by Sridhar Mathew MD at [facility] (Quantity not on file) [facility]mics-[id number] / / Conformer Small W/Holes - [id number] Implanted:07/06 by Sridhar Mathew MD at [facility] (Quantity not on file) [facility] Ophthalmics-[id number] / / Sphere Eye 18mm - [id number] Implanted:07/06 by Sridhar Mathew MD at [facility] (Quantity not on file) [facility] Ophthalmics-[id number] / / Sphere Eye 22mm - [id number] Implanted:07/06 by Sridhar Mathew MD at [facility] (Quantity not on file) [facility] Ophthalmics-[id number] 7 [id number] / / Conformer Medium W/Holes - [id number] - [id number] Implanted:Qty: 1 on 08/02/2025 by Sridhar Mathew MD at [facility] Left: Eye Ed Ophthalmics-[id number] 7 05/20/2026 [id number] / [id number] / [id number] Eye Sphere 20mm - [id number] - [id number] Implanted:Qty: 1 on 08/02/2025 by Sridhar Mathew MD at [facility] Left: Eye Ed Ophthalmics-[id number] 7 05/20/2026 [id number] / [id number] / [id number] Tissue Sclera - [id number] - [id number] Implanted:Qty: 1 on 08/02/2025 by Sridhar Mathew MD at [facility] Left: Eye [employer]-[id number] 03/02/2026 SCLERA TISSUE / [id number] / [id number] Procedures Procedure Name Priority Date/Time Associated [...] ECG ADULT STAT 08/06/2025 5:[address] OUTSIDE IMAGES 08/06/2025 12: [address] OUTSIDE IMAGES 08/06/2025 12: 04 PM EST XR OUTSIDE IMAGES 08/06/2025 10: 10 AM EST SURGICAL PATHOLOGY EXAM Routine 08/02/20 4:26 PM EDT 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) PB ANESTHESIA PLACEHOLDER Routine 08/02/2025 4:04 PM EDT [place] AN ELECTIVE SUPRAGLOTTIC AIRWAY Routine 08/02/2025 4:04 PM EDT [place] REMOVE EYE W MUSC TO IMPLANT [...] (CMS/HCC) CT CHEST W IV CONTRAST STAT 1:56 PM EDT Malignant melanoma of choroid [...] (CMS/HCC) from Last 3 Months Results * ED HIV 1/2 Antibody/Antigen Screen w/Reflex to HIV 1/2 Differentiation (08/06/2025 5:40 PM EST) Pathologist [facility] HIV 1 & 2 Antibody/Antigen Screen Non Reactive Non Reactive 08/06/2025 6:48 PM EST [facility] Comment:Screening for HIV 1 & 2 antibodies, and P24 antigen is NONREACTIVE. No confirmatory testing is required. Blood Venous blood specimen / Unknown Venipuncture / Unknown 08/06/2025 5:40 PM EST 08/06/2025 5:52 PM EST Lillian Mclain MD LAB BLOOD ORDERABLES Final Re sult Performing Organization Address City/[facility]/ZIP Co de Phone Number [facility] [address] [place] [address] * Hepatitis C Antibody - ED (08/06/2025 5:40 PM EST) Pathologist [facility] Hepatitis C Antibody Negative Negative 08/06/2025 6:46 PM EST [facility] Blood Venous blood specimen / Unknown Venipuncture / Unknown 08/06/2025 5:40 PM EST 08/06/2025 5:52 PM EST Lillian Mclain MD LAB BLOOD ORDERABLES Final Re sult Performing Organization Address City/[facility]/ZIP Co de Phone Number [facility] [address] [place] [address] * (ABNORMAL) CBC w/diff (08/06/2025 5:40 PM EST) [facility] WBC Count 10.17 3.70 - 10.30 10*3/uL LAB HEMATOLOGY METHOD 08/06/2025 6:26 PM EST [facility] RBC Count 4.95 4.60 - 6.10 10*6/uL LAB HEMATOLOGY METHOD 08/06/2025 6:26 PM EST [facility] HGB 14.3 13.7 - 17.5 g/dL LAB HEMATOLOGY METHOD 08/06/2025 6:26 PM EST [facility] HCT 43.0 40.0 - 51.0 % LAB HEMATOLOGY METHOD 08/06/2025 6:26 PM [facility] Platelet Count 289 155 - 369 10*3/uL LAB HEMATOLOGY METHOD 08/06/2025 6:26 PM [facility] MCV 87 79 - 98 fL LAB HEMATOLOGY METHOD 08/06/2025 6:26 PM [facility] MCH 28.9 26.0 - 32.0 pg LAB HEMATOLOGY METHOD 08/06/2025 6:26 PM [facility] MCHC 33.3 30.7 - 35.5 g/dL LAB HEMATOLOGY METHOD 08/06/2025 6:26 PM [facility] RDW 13.4 11.5 - 14.5 % LAB HEMATOLOGY METHOD 08/06/2025 6:26 PM [facility] MPV 10.6 8.8 - 12.5 fL LAB HEMATOLOGY METHOD 08/06/2025 6:26 PM [facility] nRBC 0.0 <=0.0 per 100 WBCs LAB HEMATOLOGY METHOD 08/06/2025 6:26 PM [facility] Differential Type Automated LAB HEMATOLOGY METHOD 08/06/2025 6:26 PM [facility] Neutrophils % 83 % LAB HEMATOLOGY METHOD 08/06/2025 6:26 PM [facility] Lymphocytes % 8 % LAB HEMATOLOGY METHOD 08/06/2025 6:26 PM [facility] Monocytes % 9 % LAB HEMATOLOGY METHOD 08/06/2025 6:26 PM [facility] Eosinophils % 0 % LAB HEMATOLOGY METHOD 08/06/2025 6:26 PM [facility] Basophils % 0 % LAB HEMATOLOGY METHOD 08/06/2025 6:26 PM [facility] Immature Granulocytes % 0 % LAB HEMATOLOGY METHOD 08/06/2025 6:26 PM [facility] Neutrophils Absolute 8.43(H) 1.60 - 6.10 10*3/uL LAB HEMATOLOGY METHOD 08/06/2025 6:26 PM [facility] Lymphocytes Absolute 0.76(L) 1.20 - 3.90 10*3/uL LAB HEMATOLOGY METHOD 08/06/2025 6:26 PM [facility] Monocytes Absolute 0.91(H) 0.30 - 0.90 10*3/uL LAB HEMATOLOGY METHOD 08/06/2025 6:26 PM [facility] Eosinophils Absolute 0.01 0.00 - 0.50 10*3/uL LAB HEMATOLOGY METHOD 08/06/2025 6:26 PM EST [facility] Basophils Absolute 0.03 0.00 - 0.10 10*3/uL LAB HEMATOLOGY METHOD 08/06/2025 6:26 PM EST [facility] Immature Granulocytes Absolute 0.03 0.00 - 0.06 10*3/uL LAB HEMATOLOGY METHOD 08/06/2025 6:26 PM EST [facility] Blood Venous blood specimen / Unknown Venipuncture / Unknown 08/06/2025 5:40 PM EST 08/06/2025 5:57 PM EST Narrative [facility] - 08/06/2025 6:26 PM EST Therapeutic decision making should be based on absolute values, rather than percentages. Lillian Mclain MD LAB BLOOD ORDERABLES Final Re sult Performing Organization Address City/[facility]/ZIP Co de Phone Number [facility] [address] [place] [address] * (ABNORMAL) Magnesium (08/06/2025 5:40 PM EST) Magnesium, Plasma 1.8(L) 1.9 - 2.4 mg/dL 08/06/2025 6:34 PM EST [facility] Blood Venous blood specimen / Unknown Venipuncture / Unknown 08/06/2025 5:40 PM EST 08/06/2025 5:52 PM EST Lillian Mclain MD LAB BLOOD ORDERABLES Final Re sult [facility] [address] [place] [address] * (ABNORMAL) CMP (08/06/2025 5:40 PM EST) Glucose, Plasma 107(H) 74 - 99 mg/dL 08/06/2025 6:34 PM EST [facility] BUN, Plasma 13 8 - 23 mg/dL 08/06/2025 6:34 PM EST [facility] Creatinine, Plasma 0.92 0.70 - 1.20 mg/dL 08/06/2025 6:34 PM [facility] BUN/Creatinine Ratio 14 08/06/2025 6:34 PM [facility] Sodium, Plasma 134(L) 136 - 145 mmol/L 08/06/2025 6:34 PM [facility] Potassium, Plasma 4.6 3.6 - 4.9 mmol/L 08/06/2025 6:34 PM [facility] Chloride, Plasma 98 97 - 107 mmol/L 08/06/2025 6:34 PM [facility] CO2, Plasma 26 22 - 29 mmol/L 08/06/2025 6:34 PM [facility] Anion Gap 10 6 - 16 mmol/L 08/06/2025 6:34 PM [facility] Total Calcium, Plasma 10.4(H) 8.9 - 10.2 mg/dL 08/06/2025 6:34 PM [facility] Total Protein 7.3 6.3 - 7.9 g/dL 08/06/2025 6:34 PM [facility] Albumin, Plasma 4.2 3.5 - 5.2 g/dL 08/06/2025 6:34 PM [facility] AST, Plasma 19 10 - 50 U/L 08/06/2025 6:34 PM [facility] Comment:Hemolyzed, result ma y be falsely increased. ALT, Plasma 20 10 - 50 U/L 08/06/2025 6:34 PM [facility] Alkaline Phosphatase, Plasma 122(H) 40 - 115 U/L 08/06/2025 6:34 PM [facility] Total Bilirubin, Plasma 0.8 0.2 - 1.1 mg/dL 08/06/2025 6:34 PM [facility] eGFRcr 84.6 mL/min/1.7 3m*2 08/06/2025 6:34 PM [facility] Comment:Reported eGFRcr in m L/min/1.73m2 is based the CKD-EPI 2020 equation that does not use a race coefficient. Blood Venous blood specimen / Unknown Venipuncture / Unknown 08/06/2025 5:40 PM EST 08/06/2025 5:52 PM EST Result [facility] Lillian Mclain MD LAB BLOOD ORDERABLES Final Re sult [facility] [address] [place] [address] * EKG now - STAT (adult) (08/06/2025 5:08 PM EST) EKG DIAGNOSIS CLASS Abnormal MUSE ECG Ventricular Rate 66 BPM MUSE ECG Atrial Rate 66 BPM MUSE ECG NJ Interval 108 ms MUSE ECG QRSD Interval 104 ms MUSE ECG QT Interval 398 ms MUSE ECG QTC Interval 417 ms MUSE ECG P [place] 2 degrees MUSE ECG R [place] -27 degrees MUSE ECG T Wave [place] 52 degrees MUSE ECG Diagnosis Sinus rhythm with short NJ with occasional premature ventricular complexes MUSE ECG Diagnosis Minimal voltage criteria for LVH, may be normal variant ( Mallie product ) MUSE ECG Diagnosis Poor R-wave progression ; consider septal infarct, lead placement, or normal variant MUSE ECG Diagnosis Abnormal ECG MUSE ECG Diagnosis MUSE ECG Diagnosis Confirmed by Nadine Raymundo ([id number]) on 08/07/2025 8:55:31 AM MUSE ECG 08/06/2025 5:08 PM EST 08/07/2025 8:55 AM EST Lillian Mclain MD ECG ORDERABLES Final Result MUSE ECG * CT OUTSIDE IMAGES (08/06/2025 12:04 PM EST) Only the most recent of2 resultswithin the time period is included. Anatomical Region Laterality Modality Computed Tomogra phy 08/06/2025 12:0 4 PM EST Result [facility] Leonel Lara MD IMG CT PROCEDURES Edited Re sult - Final * XR OUTSIDE IMAGES (08/06/2025 10:10 AM EST) Anatomical Region Laterality Modality Radiographic Radha ging 08/06/2025 10:1 0 AM EST Result [facility] Leonel Lara MD IMG XR PROCEDURES Edited Re sult - Final * Surgical Pathology Exam (08/02/2025 4:26 PM EDT) Case Report Surgical Pathology Case: [id number] Authorizing Provider: Srihdar Mathew MD Collected: 08/02/2025 1626 Ordering Location: [facility] Received: 08/03/2025 0753 Surgery Pathologist: Katrin Ding MD Specimen: Eye, Left, Left globe 12:25 PM EST [facility] Final Diagnosis A. 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 The results will be issued in an addendum. 12:25 PM EST [facility] Synoptic Checklist UVEAL MELANOMA UVEAL [...] (no nodes submitted or found) 12:[address] [facility] Clinical Information Malignant melanoma of choroid [...] from 7:00 - 12:00 5 12:[address] [facility] Special and Immunohistochemical Stains Special Stain: A1-6 PAS: highlights Descemet's membrane with abundant guttae IHC: A1-7 Melan-A Red Chromogen: highlights melanocytic tumor cells infiltrating the iris and angle All controls show appropriate reactivity. All immunohistochemist ry, in situ hybridization, and histochemical tests were developed by and are performed at the [facility], [address] [place] [address]. All tests reported here, except those addressing [...] likelihood of false negativity on decalcified specimens. 12:25 PM [facility] Gross Description A. LEFT GLOBE One specimen [...] A2 Cold Time: <1m 5 12:25 PM [facility] Note: A resident was involved in the service. I attest I examined the relevant preparations for the specimens and confirmed the diagnosis or interpretation. 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) [C69.32] us Sridhar Mathew MD LAB PATHOLOGY ORDERABLES Apple cadet Result [facility] [address] [place] [address] * [place] AN ELECTIVE SUPRAGLOTTIC AIRWAY, PB ANESTHESIA PLACEHOLDER (08/02/2025 4:04 PM EDT) Narrative Daniela Kowalski CRNA - 08/02/2025 4:04 PM EDT Daniela Kowalski CRNA 08/02/2025 4:10 PM Airway Date/Time: 08/02/2025 4:04 PM Reason: elective Airway not difficult General Information and Staff Patient location during procedure: OR STAMP REDEMPTION CLERK: Daniela Kowalski CRNA Performed: STAMP REDEMPTION CLERK Patient Condition Indications for airway management: anesthesia [...] using the following sequences: coronal single shot [id number] fast spin echo, axial T2 weighted sequences [...] MD on 08/02/2025 9:49 AM Jose Miguel Mendeita MD IMG MRI PROCEDURES Final Result * [...] multiecho sequences were obtained utilizing T1 and [id number] and axial diffusion weighted images through the [...] the medial aspect of the globe measures [id number] mm AP by 11 mm transverse by [...] Luisa Harkins MD on 07/30/2025 11:36 AM us Jose Miguel Mendieta MD IMG MRI PROCEDURES [...] Problem 08/03/2025 Insurance [employer] MEDICARE Care Teams Nc Manager Relationship Specialty Start Date End Date Pcp, Judit [address] [place] [address] PCP - General Family Medicine 07/26/25
--- OUTSIDE RECORDS SUMMARY | 2025-08-25 16:25 | XMS_ITS | Encounter Summary ---
Author Organization Healthcare Address [address] [place] [id number] Care Team Providers Care Robot Designer Name Role Phone Pcp, No Primary Care Provider Unavailabl e Encounter Details Date Type Department Care Team (Late st Contact Info) Description 08/06/2025 Ophth Exam [facility] [address] [place] [phone] Jacques Zhong MD [address] [place], [place] [id number] Social History Tobacco Use Types Packs/Day Years [...] Schaffer RN documented as of this encounter Plan of Treatment Upcoming Encounters Date Type Department Care Team (Late st Contact Info) Description 12/05/2025 11:00 AM EST Office Visit [facility] [address] [place] [address] Sridhar Mathew MD 110 [facility] [place] [address] documented as of this encounter [...] documented as of this encounter Care Teams Robot Designer Relationship Specialty Start Date End Date Pcp, No [address] [place] [address] PCP - General Family Medicine 07/26/25 documented as of this encounter
--- OUTSIDE RECORDS SUMMARY | 2025-08-25 16:25 | XMS_ITS | Encounter Summary ---
Author Organization Healthcare Address [address] [place] [address] Care Team Providers Care Global Account Manager Name Role Phone Pcp, No Primary [...] [facility] [address] [place] [address] Sridhar Mathew MD [address] [address] documented as of this encounter [...] documented as of this encounter Care Teams Global Account Manager Relationship Specialty Start Date End Date Pcp, [place] [address] PCP - General Family Medicine 07/26/25 documented as of this encounter
--- OUTSIDE RECORDS SUMMARY | 2025-08-25 16:25 | XMS_ITS | Encounter Summary ---
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) Procedures MR Abdomen w and wo IV Contrast Jose Miguel Mendieta MD 110 [facility] [address] [place] [address] Phone: tel: fax: Referral ID Status Reason Start Date Expiration Date Visits Re quested Visits Authorized [id number] Closed 07/27/2025 01/26/2027 1 1 Encounter Details Date Type Department Care Team (Late st Contact Info) Description 07/27/2025 Orders Only [facility] [address] [place] [address] Jose Miguel Mendieta MD 110 [facility] [address] [place] [address] Malignant melanoma of choroid of left [...] Description 12/05/2025 11:00 AM EST Office Visit [facility] [address] [place] [address] Sridhar Mathew MD [address] [place] [address] documented as of this encounter [...] using the following sequences: coronal single shot [id number] fast spin echo, axial T2 weighted sequences [...] documented as of this encounter Care Teams Regional Commercial Sales Manager Relationship Specialty Start Date End Date Pcp, [place] [address] PCP - General Family Medicine 07/26/25 documented as of this encounter
[2025-08-25 16:30] VITALS: BP 143/93; BP 184/96; PULSE 66; PULSE 69; RESP 14; TEMP 36.6; O2SAT 94; O2SAT 98; BMI 28.3
[2025-08-25 17:00] VITALS: BP 152/93; PULSE 64; O2SAT 95
[2025-08-25 17:30] VITALS: BP 148/96; PULSE 68; RESP 16; O2SAT 97
--- NOTE | 2025-08-25 17:45 | ED_ITS ---
Discharge Plan Disposition Patient Disposition: Home, Self-Care Condition: Good Prescriptions Prescriptions: New amoxicillin-pot clavulanate 875-125 mg tablet 1 tab PO BID 7 Days Qty: 14 0RF erythromycin 5 mg/gram (0.5 %) ointment 1 applic ophthalmic (eye) Q8H Qty: 84 0RF No Action docusate sodium [Colace] 100 mg capsule 100 mg PO DAILY Qty: 30 0RF ondansetron HCl 4 mg tablet 4 mg PO TIDP PRN (Reason: Nausea And Vomiting) amoxicillin-pot clavulanate 875-125 mg tablet 1 tab PO BID sumatriptan succinate 50 mg tablet 50 mg PO DIRECTED PRN (Reason: Migraine Headache) Rx Instructions: take 1 tab at onset of headache; if no relief may repeat 1 tab after at least 2 hrs; max = 4 tabs/24 hr orally PRN; polyethylene glycol 3350 [Miralax] 17 gram/dose powder 17 g PO DAILYP PRN (Reason: constipation) aspirin 81 mg tablet,delayed release (DR/EC) 81 mg PO DAILY Qty: 30 0RF Referrals Follow up/Referrals: Claudio Guy MD [Primary Care Provider, Family Practice] - See instructions Activity Restrictions/Add. Instructions Additional Instructions/Restrictions: Please take Augmentin twice daily for the next 7 days. I also want you to use erythromycin ointment in the left eye 3 times daily for the next [address] Gaxiola from Ophthalmology will call you tomorro w to schedule a clinic appointment for this week. If he develops any new or worsening symptoms please return. Clinical Impressions Clinical Impression: Prosthetic and other implants, materials and accessory ophthalmic devices associated with adverse incidents Print Language Print Language: Eritrean Discharge ED Provider: Suhas Bran Adult HPI General Chief complaint: Eye Problems Stated complaint: left eye is injured Time Seen by Provider: 08/25/25 16:17 Mode of Arrival: Ambulatory Source of Information: Patient and Relative Description of Symptoms (Recalled from ER Triage Doc. by RN): pt states he was here a few wks ago, dx with a tumor to his L eye. He was then transferred to and had surgery removing the eye. pt reports around noon he was showering when the glue came apart and his eye came open. pts plastic shield and temporary prosthetic are buldging out. During triage the shiel fell out of his L eye, the prosthetic remained intact at this time. pt denies pain. History of Present Illness HPI narrative: This is a 80-year-old male patient, with past medical history of left-sided ocular melanoma status post enucleation at the [facility], who is presenting to the emergency department today for evaluation of accidental removal of his left eye prosthetic. Patient states that after his surgery his eyelid has been matted shut. He states that today in the shower his eyelid opened and the ocular prosthetic fell out of his eye. He has not had any infectious symptoms, fevers, chills, or drainage from the eye. Related Data Home Medications ?Medication ?Instructions ?Recorded ?Confirmed amoxicillin 875 mg-potassium 1 tab PO BID 08/10/2508/28 clavulanate 125 mg tablet ondansetron HCl 4 mg tablet 4 mg PO TIDP PRN Nausea An d 08/10/25 08/14/25 Vomiting polyethylene glycol 3350 17 17 g PO DAILYP PRN constip ation 08/10/25 08/14/25 gram/dose oral powder (Miralax) sumatriptan succinate 50 mg tablet 50 mg PO DIRECTE D PRN Migraine 08/10/25 08/14/25 Headache Previous Rx's ?Medication ?Instructions ?Recorded docusate sodium 100 mg capsule 100 mg PO DAILY #30 cap s 08/10/25 (Colace) aspirin 81 mg tablet,delayed 81 mg PO DAILY #30 tabs 1 10/11/24 release amoxicillin 875 mg-potassium 1 tab PO BID 7 days #14 t abs 08/25/25 clavulanate 125 mg tablet erythromycin 5 mg/gram (0.5 %) eye 1 applic ophthalmic (eye) Q8H #84 08/25/25 ointment grams Allergies Allergy/AdvReac Type Severity Reaction Status Date / Time hydrocodone AdvReac Vomiting Verified 08/14/25 10:10 [facility] Disclaimer: The information contained in this section may have been updated after the patient was seen, as this information can be updated by other users. Medical History Hyponatremia Anemia Abnormal electrocardiogram [ECG] [EKG] Hypertension Skin cancer Hx of skin cancer, basal cell Surgical History Past history of tetralogy of Fallot, post surgical repair Family History Other Cancer Heart attack Social History Smoking Status: Never smoker alcohol intake: never substance use type: denies use current occupational status: retired Travel in the last 8 weeks?: None household members: family housing: house marital status: education level: middle school Have you lived/traveled outside US in past 30 days?: No Contact w/someone who lives/traveled outside US past 30 days?: No Exposure to someone with infectious disease in past 14 days?: No Do you have a fever (greater than 100.4 F or 38 C)?: No Have you tested positive for COVID-19?: No Exposed to someone with COVID-19 in past 14 days?: No Do you have a sore throat?: No Do you have a cough?: No Do you have any weakness?: No Do you have any diarrhea?: No Are you experiencing any unusual bleeding?: No Do you have any muscle aches/pain?: No Do you have any abdominal pain?: No Are you experiencing loss of taste or smell?: No Other Medical History Have you received the Flu Vaccine for this season: No Have you received the Pneumonia Vaccine: No ROS Obtained: Yes Systems reviewed as appropriate & no additional complaints except as documented Physical Exam General General appearance: other (See MDM) Respiratory Respiratory exam: Present other (See MDM) Cardiovascular Cardiovascular exam: Present other (See MDM) Neurological Exam Neurological exam: Present other (See MDM) Medical Decision Making Medical Records Medical records reviewed: Yes I reviewed the patient's medical records. Screening: Per USPSTF and CDC recommendations, given the prevalence of disease in our region, it is our hospital?s policy to screen for HIV and viral Hepatitis for all patients aged 18 and over and those with ongoing risk factors. Deon Inquiry Pt receiving controlled substance: No Deon was queried for this patient: No Vital Signs: 08/25/25 16:30 08/25/25 16:30 08/25/25 17:00 Temperature 97.9 F Temperature Source Oral Pulse Rate 66 64 Pulse Rate [Left] 69 Respiratory Rate 14 Blood Pressure 143/93 H 152/93 H Blood Pressure [Right Arm] 184/96 H Blood Pressure Mean 122 Blood Pressure Mean [Right Arm] 125 Blood Pressure Source [Right Arm] Automatic Cuff Blood Pressure Position [Right Arm] Sitting 02 Sat by Pulse Oximetry 98 94 L 95 Oxygen Delivery Method Room Air Room Air Room Air 08/25/25 17:30 Temperature Temperature Source Pulse Rate 68 Pulse Rate [Left] Respiratory Rate 16 Blood Pressure 148/96 H Blood Pressure [Right Arm] Blood Pressure Mean 114 Blood Pressure Mean [Right Arm] Blood Pressure Source [Right Arm] Blood Pressure Position [Right Arm] 02 Sat by Pulse Oximetry 97 Oxygen Delivery Method Medical Decision Narrative: In summary, this is a 80-year-old male patient who is presenting to the emergency department today for evaluation of accidental removal of his left eye prosthetic. 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 On initial evaluation of the patient they were resting comfortably in no acute distress and nontoxic in appearance. They are hemodynamically stable, saturating well room air, and are neurologically intact. On physical examination the patient's left prosthetic has been removed from the eye. He has granulation tissue within the orbit. There is mild erythema of the conjunctival palpebral membrane. There is no overt purulence coming from the eye socket and no evidence of periorbital cellulitis. Differential diagnosis includes extrusion of left eye prosthetic, conjunctivitis, among others. Low suspicion for orbital infection at this time. I had an interactive discussion with Dr. Gaxiola at the [facility] ophthalmology service who actually performed the patient's surgery. She states that there is no indication for emergent transfer for extrusion of this prosthetic. She states that she will personally call the patient in the morning and have him come into the clinic this week for evaluation. She states that he will need surgery for surgical replacement and debridement. She also tells me that this is situation where he is potentially at high risk for infection so she would like for us to start the patient on Augmentin prophylactically as well as erythromycin ointment to place within the orbit itself. I have relayed this to the patient and his family. At this time all questions been answered and all parties are agreeable with the decision to discharge home Critical Care Critical Care Time Critical Care Time: No
[2025-08-25 17:59] VITALS: BP 148/96; PULSE 63; RESP 16; TEMP 36.9; O2SAT 97
[2025-08-25 18:00] VITALS: BP 157/93; PULSE 68; O2SAT 95
--- NOTE | 2025-08-25 18:14 | PC.NURSE ---
states to leave the pts eye socket open to air, do not apply a dressing. The pt is to coat the inside of his eye with the ointment. pt educated how to apply the ointment in a clean manner. pt verbalized his understanding.
== END 2025-08-25 18:24 | disposition home or self-care (01) ==
PROVIDERS: Emergency Provider Student in an Organized Health Care Education/Training Program; PCP Family Medicine
DX: H57.89 Other specified disorders of eye and adnexa (principal); Z85.840 Personal history of malignant neoplasm of eye; Y77.2 Prosthetic and other implants, materials and accessory ophthalmic devices associated with adverse incidents
CPT/HCPCS: 99284

== ENCOUNTER 2025-09-25 07:42 | Outpatient (CLI) | payer MEDICARE, OTHER, SELFPAY ==
--- OUTSIDE RECORDS SUMMARY | 2025-07-26 11:35 | XMS_ITS | Encounter Summary ---
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) Procedures CT Chest w IV Contrast Jose Miguel Mendieta MD [address] [employer] [address] [place] [phone] Phone: tel: fax: Referral ID Status Reason Start Date Expiration Date Visits Re quested Visits Authorized [id number] Closed 07/18/2025 01/17/2027 1 1 * Imaging (Urgent) - Closed Specialty Diagnoses / Procedures Referred By Contac t Referred To Contact Radiology Diagnoses 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) Procedures CT Abdomen Pelvis w IV Contrast Jose Miguel Mendieta MD [address] [employer] [address] [place] [address] Phone: tel: fax: Referral ID Status Reason Start Date Expiration Date Visits Re quested Visits Authorized [id number] Closed 07/18/2025 01/17/2027 1 1 Reason for Visit * Imaging (Urgent) - Closed Specialty Diagnoses / Procedures Referred By Contac t Referred To Contact Radiology Diagnoses 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) Procedures CT Abdomen Pelvis w IV Contrast Jose Miguel Mendieta MD [address] [place] [address] Phone: tel: fax: Referral ID Status Reason Start Date Expiration Date Visits Re quested Visits Authorized [id number] Closed 07/18/2025 01/17/2027 1 1 Encounter Details Date Type Department Care Team (Latest Contact Info) Description 07/26/2025 12:35 PM EDT - 07/26/2025 11:59 PM EDT Hospital Encounter [facility] [address] [place] [address] 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 HYDROcodone-aceta minophen ([place]) 5-325 MG tablet Take 1 tablet by mouth every 6 hours as needed for severe pain. 10 tablet 08/02/2025 ondansetron (Zofran) 4 MG tablet Take 1 tablet by mouth every 8 hours as needed for nausea or vomiting. 20 tablet 08/02/2025 documented as of this encounter Plan of Treatment Upcoming Encounters Date Type Department Care Team (Late st Contact Info) Description 11/21/2025 10:00 AM EST Office Visit [facility] [address] [facility] [place] [address] Sridhar Mathew MD [address] [place] [address] documented as of this encounter Procedures [...] COMMUNICATION: Per this written report. Drafted by yLnn Corrales MD on 07/26/2025 2:01 PM Final [...] documented in this encounter Additional Health Concerns Assessment Noted Time A fall risk assessment has been complete d for the patient 07/18/2025 12:58 PM EDT documented as of this encounter Care Teams Compound Filler Relationship Specialty Start Date End Date Pcp, No [address] [place] [address] PCP - General Family Medicine 07/26/25 documented as of this encounter
--- OUTSIDE RECORDS SUMMARY | 2025-07-30 06:33 | XMS_ITS | Encounter Summary ---
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) Procedures MR Orbits w and wo IV Contrast Jose Miguel Mendieta MD [address] [place] [phone] Phone: tel: fax: Referral ID Status Reason Start Date Expiration Date Visits Re quested Visits Authorized [id number] Closed 07/18/2025 01/17/2027 1 1 Reason for Visit * Imaging (Urgent) - Closed Specialty Diagnoses / Procedures Referred By Kira pino Referred To Contact Radiology Diagnoses 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) Procedures MR Orbits w and wo IV Contrast Jose Miguel Mendieta MD [address] [place] [address] Phone: tel: fax: Referral ID Status Reason Start Date Expiration Date Visits Re quested Visits Authorized [id number] Closed 07/18/2025 01/17/2027 1 1 Encounter Details Date Type Department Care Team (Latest Contact Info) Description 07/30/2025 7:33 AM EDT - 07/30/2025 11:59 PM EDT Hospital Encounter PAV A Radiology [address] [place] [address] 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 HYDROcodone-aceta minophen ([place]) 5-325 MG tablet Take 1 tablet by [...] Description 11/21/2025 10:00 AM EST Office Visit [facility] [address] [place] [address] Sridhar Mathew MD [address] [place] [address] documented as of this encounter [...] multiecho sequences were obtained utilizing T1 and U1hqbveuzlw and axial diffusion weighted images through the [...] the medial aspect of the globe measures [id number] mm AP by 11 mm transverse by [...] as of this encounter Care Teams Senior Service Aide Relationship Specialty Start Date End Date P[place], [place] [address] PCP - General Family Medicine 07/26/25 documented as of this encounter
--- OUTSIDE RECORDS SUMMARY | 2025-07-30 10:30 | XMS_ITS | Encounter Summary ---
Author Organization [facility] Address [address] [place] [address] Care Team Providers Care Talent Development Analyst Name Role Phone Pcp, No Primary Care Provider Unavailabl e Reason for Visit * Reason Comments eye melanoma Encounter Details Date Type Department Care Team (Late st Contact Info) Description 07/30/2025 11:30 AM EDT Office Visit [facility] [address] [place] [address] Sridhar Mtahew MD [address] [address] Malignant melanoma of choroid of [...] of common ophthalmology abbreviations, please refer to: https://www.aao.org/young-ophthalmologists/yo-info/article/ztekxthw-gopjv-poozjz lmic-abbreviations Cosigned by Sridhar Mathew MD at [...] Description 11/21/2025 10:00 AM EST Office Visit [facility] [address] [place] [address] Sridhar Mathew MD [address] [address] documented as of this encounter Visit Diagnoses [...] documented as of this encounter Care Teams Talent Development Analyst Relationship Specialty Start Date End Date Pcp, Judit [address] [place] [address] PCP - General Family Medicine 07/26/25 documented as of this encounter
--- OUTSIDE RECORDS SUMMARY | 2025-08-01 15:15 | XMS_ITS | Encounter Summary ---
Author Organization Healthcare Address [address] 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) Procedures MR Abdomen w and wo IV Contrast Jose Miguel Mendieta MD [address] [place] [address] Phone: tel: fax: Referral ID Status Reason Start Date Expiration Date Visits Re quested Visits Authorized [id number] Closed 07/27/2025 01/26/2027 1 1 Reason for Visit * Imaging (Urgent) - Closed Specialty Diagnoses / Procedures Referred By Kira pino Referred To Contact Radiology Diagnoses 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 HYDROcodone-aceta minophen ([place]) 5-325 MG tablet Take 1 tablet by [...] Description 11/21/2025 10:00 AM EST Office Visit [facility] [address] [place] [address] Sridhar Mathew MD [address] [place] [address] documented as of this encounter [...] Levoscoliosis of the lumbar spine. Procedure Note Jfefy Escobar MD - 08/02/2025 CLINICAL INDICATION: UVeal Melanoma Systemic surveillance TECHNIQUE: MR imaging of the abdomen was performed with and without intravenouscontrast material using the following sequences: coronal single shot [id number] fast spin echo, axial T2 weighted sequences [...] documented as of this encounter Care Teams Electrical Prospector Relationship Specialty Start Date End Date Pcp, [place] [address] PCP - General Family Medicine 07/26/25 documented as of this encounter
--- OUTSIDE RECORDS SUMMARY | 2025-08-02 10:59 | XMS_ITS | Encounter Summary ---
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] Procedures IN REMOVE EYE W MUSC TO IMPLANT Left enucleation with orbital implant insertion Sridhar Mathew MD [address] [address] Phone: tel: fax: [facility] [address] [place] [phone] Phone: tel: Referral ID Status Reason Start Date Expiration Date Visits Re quested Visits Authorized [id number] 1 1 Encounter Details Date Type Department Care Team (Latest Contact Info) Description 08/02/2025 11:59 AM EDT - 08/02/2025 6:24 PM EDT Hospital Encounter [facility] [address] [place] [phone] Sridhar Mathew MD [address] [address] Malignant melanoma of choroid of [...] documented in this encounter Functional Status * Question Answer [...] Beverly Maurice RN documented in this encounter Discharge Instructions * Discharge Instructions* [...] Room or call the Emergency Department at [phone]. Smoking and its health risks Smoking is [...] help quitting smoking, call the National Cancer [place]'s Quitline toll free at or ask your doctor for help. Weight Management Weighing too much is not good for your health. Being overweight increases your risk of health conditions such as heart problems, high blood pressure, type 2 diabetes, and certain types of cancer. Being overweight can also increase your risk for osteoarthritis (rz-fun-ir-csc-QSFZ-hym) (joint disease), sleep apnea (abnormal breathing at [...] risk of health problems. Ask your dietitian, brake lining finisher asbestos or doctor about a weight loss goal [...] of controlled substances: Drug Enforcement Agency (JANE): http://www.deadiversion.Lemon Curveoj.gov/drug_disposal/takeback/index.htm National Association of Drug Diversion Investigators (NADDI): http://rxdrugdropbox.org/ [place] Office of Drug Control Policy: http://odcp.[place].gov/Prescription+Drug+Drop+Box+Sites.htm Are there concerns about or ? Before [...] look blue or purple What is a [facility] report? [employer] is a system that tracks prescriptions of controlled substances in [place]. The FELICE report tells your doctor if you have been prescribed controlled substances in the past. Doctors must get a FELICE report before prescribing controlled substances. What can I do if the information in my FELICE report is wrong? You or your doctor may contact the dispenser who reported the information to [employer]. If the dispenser agrees that the information should be changed, he or she can fix the FELICE report. However, the dispenser may certify that the report is correct. If that is the case, you or your doctor may then call the [place] Drug Enforcement and Professional Practices Branch at [...] these. 's resources to help you quit: http://www.[facility]/TobaccoFree/ - Click on the Quit Here! tab. A telephone quit line: (8-979-JCGLJXO) Web sites: www.smokefree.gov, www.Grid2020.[employer], www.Arav Tobacco Treatment Counselors: Call 907-960-9236. Medicare and Medicaid pay for this. employees, retirees, and their spouses or sponsored dependents can get free nicotine replacementtherapy and coaching. Visit www.[facility]/HR/Wellness/consults.html. [facility] Education [...] every 6 hours as needed. HYDROcodone-aceta minophen ([place]) 5-325 MG tablet Take 1 tablet by [...] you can call the Eye Clinic at [phone] Mathew's customs and immigration officer at [phone]. Nights, weekends or holidays, call [phone] and ask for the eye surgeon sales consultant residential manager. * Op Note - Sridhar Mathew MD - 08/02/2025 4:12 PM EDT Operative Note Date: 08/02/25 Location: [facility] OR Name: Zaynab Lincoln, : 1945, Diagnoses: [...] in all escalante portions of the procedure. 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 Final Diagnosis A. 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 The results will be issued in an addendum. 12:25 PM EST [facility] Synoptic Checklist UVEAL MELANOMA UVEAL MELANOMA - All Specimens 8th Edition - Protocol posted: 12/24/2021 CLINICAL Treatment History: No known preoperative therapy SPECIMEN Procedure: Enucleation Tumor Sampling for Molecular Studies: No Specimen Laterality: Left TUMOR Tumor Site (macroscopic examination / transillumination) : majority of the posterior chambed is filled with the lesion Tumor Site after Sectioning: majority of the posterior chambed is filled with the lesion Tumor Size after Sectioning: Greatest Basal Diameter of Tumor: 21 mm Greatest Thickness of Tumor: 9 mm Tumor Growth Pattern: Solid mass Tumor Size in Microscopic Sections: Greatest Basal Diameter of Tumor (microscopic): 21 mm Greatest Thickness of Tumor (microscopic): 9 mm 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 As per the AJCC (Chapter 1, 8th Ed.) it is the managing physician's responsibility to establish the final pathologic stage based upon all pertinent information, including but potentially not limited to this pathology report. 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] Per electronic medical record, the clinical history is significant for: - Clinical Features: - Melanotic elevated pigmented cilliochoroidal mass - Exudative Retinal Detachment + - USG : Basal Dimensions 16.51*16.87 mm; Thickness 12.55 mm; Acoustic hollowness: yes - UBM confirms CB involvement - transillumination shows pigmentation from 7:00 - 12:00 5 12:25 PM [facility] Special and Immunohistochemical Stains Special Stain: A1-6 PAS: highlights Descemet's membrane with abundant guttae IHC: A1-7 Melan-A Red Chromogen: highlights melanocytic tumor cells infiltrating the iris and angle All controls show appropriate reactivity. All immunohistochemist ry, in situ hybridization, and histochemical tests were developed by and are performed at the [facility], [address] [place] [address]. All tests reported here, except those addressing HER2 (breast) and PD-L1 expression as predictive markers, have not been cleared by or approved by the US Food and Drug Administration (FDA). The FDA has determined that such clearance or approval is not necessary. The laboratory is regulated under CLIA as qualified to perform high-complexity testing. The tests are used for clinical purposes. They should not be regarded as investigational or for research. This assay has not been validated on decalcified tissues. Results should be interpreted with caution given the likelihood of false negativity on decalcified specimens. 5 12:25 PM [facility] Gross Description A. LEFT GLOBE One specimen is received in formalin designated left globe . The specimen consists of an intact globe that measures 25 x 24 x 23 mm. The sclera is unremarkable with small amounts of adherent skeletal muscle. An optic nerve remnant is noted flush with the sclera. The cornea is clear and elliptical. It measures 13 x 10 mm. Arcus senilis is present. A blue quintanilla iris is noted through the cornea, with a regular 3 mm pupil. The peripheral caps are removed. The anterior chamber is open. The lens is not identified. The posterior chamber is filled with a large light walters to hemorrhagic dome shaped mass that fills nearly half of the posterior chamber. The mass appears to be centered within the choroid, however grows anteriorly and abuts the iris on its posterior aspect. The base measures approximately 27 mm with a height of 10 mm. It comes to within 2 mm of the optic disc. A separate subretinal fluid collection is noted 3 mm from the mass, is filled with straw colored gelatinous fluid, and is 7 mm x 3 mm. No definite gross extrascleral extension is identified. The central portion of the globe is placed in A1. The shaved optic nerve margin is placed in A2 Cold Time: <1m 12:25 PM EST [facility] Note: A resident was involved in the service. I attest I examined the relevant preparations for the specimens and confirmed the diagnosis or interpretation. 12:25 PM EST 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 [address] [place] [address] documented in this encounter Visit Diagnoses Diagnosis [...] documented as of this encounter Care Teams Bsa/Aml Compliance Officer Relationship Specialty Start Date End Date Pcp, [place] [address] PCP - General Family Medicine 07/26/25 documented as of this encounter
--- OUTSIDE RECORDS SUMMARY | 2025-08-02 12:40 | XMS_ITS | Encounter Summary ---
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] Procedures [place] REMOVE EYE W MUSC TO IMPLANT Left enucleation with orbital implant insertion Sridhar Mathew MD [address] [email or web address] [address] [place] [phone] Phone: tel: fax: [facility] [address] [place] [phone] Phone: tel: Referral ID Status Reason Start Date Expiration Date Visits Re quested Visits Authorized [id number] 1 1 Encounter Details Date Type Department Care Team (Late st Contact Info) Description 08/02/2025 1:40 PM EDT - 08/02/2025 3:10 PM EDT [facility] [address] [place] [phone] Sridhar Mathew MD [address] [address] Left enucleation with orbital implant insertion [18573 (CPT )] Surgery Details Date/Time Status Location OR Service Patient Class Case Class Case Type Trauma Case? 08/02/2025 1:40 PM Posted [facility] OR 4OR0 1 Ophthalmology [facility] Surgery E1 - Elective (Do not proceed without financial clearance) Panel 1 Procedure [facility] Anes Op Region Wound Class Comments Left enucleation with orbital implant insertion Left General 40 min need whole donor sclera Surgeon Surgeon Role Service Panel Sridhar Mathew MD Primary Ophthalmology 1 Kaveh Fuller MD Resident - Assisting 1 Medina Gaxiola MD Fellow Ophthalmology 1 documented in this encounter Social History Tobacco Use Types Packs/Day Years [...] Sign Reading Time Taken Comments Blood Pressure 155/90 08/02/2025 2:15 PM EDT Pulse 75 08/02/2025 2:15 PM EDT Temperature 36.5 C (97.7 F) 08/02/2025 2:15 PM EDT Respiratory Rate 18 08/02/2025 2:15 PM EDT Oxygen Saturation 96% 08/02/2025 2:15 PM EDT Inhaled Oxygen Concentration - - [...] Room or call the Emergency Department at [phone]. Smoking and its health risks Smoking is [...] help quitting smoking, call the National Cancer [place]'s Quitline toll free at or ask your doctor for help. Weight Management Weighing too much is not good for your health. Being overweight increases your risk of health conditions such as heart problems, high blood pressure, type 2 diabetes, and certain types of cancer. Being overweight can also increase your risk for osteoarthritis (lf-jyx-bz-kir-YYVN-nfx) (joint disease), sleep apnea (abnormal breathing at [...] risk of health problems. Ask your dietitian, solution architect or doctor about a weight loss goal [...] of controlled substances: Drug Enforcement Agency (JANE): http://www.deadiversion.usdoj.gov/drug_disposal/takeback/index.htm National Association of Drug Diversion Investigators (NADDI): http://rxdrugdropbox.org/ [place] Office of Drug Control Policy: http://odcp.[place].gov/Prescription+Drug+Drop+Box+Sites.htm Are there concerns about or ? Before [...] or purple What is a FELICE report? [employer] is a system that tracks prescriptions of controlled substances in [place]. The FELICE report tells your doctor if you have been prescribed controlled substances in the past. Doctors must get a FELICE report before prescribing controlled substances. What can I do if the information in my FELICE report is wrong? You or your doctor may contact the dispenser who reported the information to Apple Seeds. If the dispenser agrees that the information should be changed, he or she can fix the FELICE report. However, the dispenser may certify that the report is correct. If that is the case, you or your doctor may then call the [place] Drug Enforcement and Professional Practices Branch at [...] these. 's resources to help you quit: http://www.[facility]/TobaccoFree/ - Click on the Quit Here! tab. A telephone quit line: (4-747-ZFCCGUW) Web sites: www.smokefree.gov, www.Vtap.eSKY.pl, www.[employer] Tobacco Treatment Counselors: Call 506-344-2949. Medicare and Medicaid pay for this. employees, retirees, and their spouses or sponsored dependents can get free nicotine replacementtherapy and coaching. Visit www.[facility]/HR/Wellness/consults.html. [facility]: [...] every 6 hours as needed. HYDROcodone-aceta minophen ([place]) 5-325 MG tablet Take 1 tablet by mouth every 6 hours as needed for severe pain. 10 tablet 08/02/2025 ondansetron (Zofran) 4 MG tablet Take 1 tablet by mouth every 8 hours as needed for nausea or vomiting. 20 tablet 08/02/2025 documented as of this encounter Miscellaneous Notes * Beverly Kuo RN - 08/02/2025 4:45 PM EDT Images [...] you can call the Eye Clinic at [phone] Mathew's sea air land officer at [phone]. Nights, weekends or holidays, call [phone] and ask for the eye surgeon hydroelectric station operator chief. * Op Note - Sridhar Mathew MD - 08/02/2025 4:12 PM EDT Operative Note Date: 08/02/25 Location: [facility] OR Name: Zaynab Lincoln, : 1945, Diagnoses: [...] in all escalante portions of the procedure. HOTEL OR MOTEL ROOM SERVICE SUPERVISOR SURGEON: Medina Gaxiola MD; Kaveh Fuller MD [...] not included. History Of Present Illness Zaynab Lnicoln is a 80 y.o. male presenting with [...] card, photo ID, along with power of collections attorney, guardianship or advanced directives if applicable Do not bring money, jewelry or other valuables Hibiclens bathing instructions reviewed if applicable Notify surgeon of fever, illness, any changes or if you decide not to have surgery * PAT Phone Note - Lliiana Gilliland RN - 07/31/2025 9:13 AM EDT [...] Description 11/21/2025 10:00 AM EST Office Visit [facility] [address] [place] [address] Sridhar Mathew MD [address] [phone] documented as of this encounter Procedures Procedure Name Priority Date/Time Associated Diagnosis Comments SURGICAL PATHOLOGY EXAM Routine 08/02/2025 4:26 PM EDT 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 The results will be issued in an addendum. 12:25 PM EST [facility] Synoptic Checklist UVEAL MELANOMA UVEAL MELANOMA [...] nodes submitted or found) 12:25 PM EST [facility] Clinical Information Malignant melanoma of choroid [...] from 7:00 - 12:00 5 12:25 PM [facility] Special and Immunohistochemical Stains Special Stain: A1-6 PAS: highlights Descemet's membrane with abundant guttae IHC: A1-7 Melan-A Red Chromogen: highlights melanocytic tumor cells infiltrating the iris and angle All controls show appropriate reactivity. All immunohistochemist ry, in situ hybridization, and histochemical tests were developed by and are performed at the [facility], [address] [place] [address]. All tests reported here, except those addressing [...] negativity on decalcified specimens. 5 12:25 PM [facility] Gross Description A. LEFT GLOBE One specimen [...] Result [facility] [address] [place] [address] documented in this encounter Visit Diagnoses Diagnosis [...] Given 08/02/2025 2:40 PM EDT 40 mg erythromycin (Romycin) 5 MG/GM ophthalmic ointment As needed, Starting on Gretta 08/02/25 at 1647, Until Gretta 08/02/25 at 1647, Routine Given 08/02/2025 4:47 PM EDT 1 Application fentaNYL (Sublimaze) injection 25 mcg 25 mcg, [...] documented as of this encounter Care Teams Peoplesoft Taleo Manager Relationship Specialty Start Date End Date Pcp, [place] [address] PCP - General Family Medicine 07/26/25 documented as of this encounter
--- OUTSIDE RECORDS SUMMARY | 2025-08-02 14:59 | XMS_ITS | Encounter Summary ---
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] Procedures SD REMOVE EYE W MUSC TO IMPLANT Left enucleation with orbital implant insertion Sridhar Mathew MD [address] [place] [phone] Phone: tel: fax: [facility] [address] [place] [phone] Phone: tel: Referral ID Status Reason Start Date Expiration Date Visits Re quested Visits Authorized [id number] 1 1 Encounter Details Date Type Department Care Team (Late st Contact Info) Description 08/02/2025 3:59 PM EDT Anesthesia Event PAV [facility] [address] [place] [phone] Mayela Banerjee MD [address] [place] [address] Mariam Cuevas MD [address] [place] [phone] Anesthesia Record Procedure Summary Procedure Name Responsible Anesthesiologist Anesthesia Start Time Anesthesia Stop Time Left enucleation with orbital implant insertion (Left) Mayela Banerjee MD 08/02/25 1559 08/02/25 1648 Events Date Time Event Comment 08/02/2025 1459 1559 An Start The patient was reevaluated immediately before sedation and remains eligible for anesthesia plan. 1559 An Start Data 1559 In Room 1603 An Induction The patient was reevaluated immediately before moderate or deep sedation use and before anesthesia induction. 1604 An Intubation 1605 Anesthesia Ready 1612 Proc Start 1643 An Extubation 1643 Proc Fin 1644 an stop data 1644 Out of Room 1648 Handoff to Receiving I compl eted my handoff to the receiving clinician during which we: 1. Identified the patient 2. Identified the responsible provider 3. Reviewed the pertinent medical history 4. Discussed the surgical course 5. Reviewed intra-op anesthesia management and issues during anesthesia 6. Set expectations for post-procedure period 7. Allowed opportunity for questions and acknowledgement of understanding. 1648 An Stop Meds Name Total fentaNYL (Sublimaze) injection 50 mcg/mL 100 mcg lidocaine PF (Xylocaine-MPF) 2% 40 mg propofol (Diprivan) injection 10 mg/mL 2 00 mg dexamethasone (Decadron) injection 4 mg/ mL 4 mg ondansetron (Zofran) injection 2 mg/mL 4 mg glycopyrrolate (Robinul) injection 0.2 m g/mL 0.2 mg labetalol (Normodyne,Trandate) injection 5 mg/mL 15 mg lactated Ringer's infusion 350 mL * Agents Name Sevoflurane Inspired Sevoflurane * Blood No blood administrations on file. Lines, Drains, and Airways Type Details Placement Removal Wound 08/02/25; Yes; Surgi dania; Closed Surgi; Eye; Left 08/02/25 0000 by Beverly Gray RN Peripheral IV Placement Date: 07/06 ; Placement Time: 1449; Catheter Size: 20 G; Orientation: Anterior, Left; Location: Forearm; Site Prep: Chlorhexidine ; Local Anesth: None; Technique: Anatomical landmarks; Inserted by: wesley garcia; Insertion Attempts: 1; Patient Tolerance: Tolerated well; Removal Date: 08/02/25; Removal Time: 181208/02/25 1449 by Loraine Garcia RN 08/02/25 181 by Beverly Gonzalez RN Supraglottic Airway Placement Date: 07/06 ; Placement Time: 1604 (created via procedure documentation); Mask Ventilation: 1; Comments: Atraumatic, dentition unchanged; Removal Date: 08/02/25; Removal Time: 16408/02/25 1604 by Daniela Kowalski CRNA 08/02/25 1643 by Daniela Kowalski CRNA documented in this encounter Social History Tobacco [...] Beverly Maurice RN documented in this encounter Miscellaneous Notes * Anesthesia Postprocedure Evaluation - Daniela Kowalski CRNA - 08/02/2025 4:48 PM EDT Patient: Zaynab Lincoln Anesthesia Type: general Vitals Value Taken Time BP 99/64 08/02/25 16:48 Temp 97F 08/02/25 16:48 Pulse 58 08/02/25 16:48 Resp 10 08/02/25 16:48 SpO2 97% 08/02/25 16:48 Anesthesia Post Evaluation Patient location during evaluation: PACU Patient participation: complete - patient participated Level of consciousness: sedated Pain management: adequate (pain score 0-3) Airway patency: natural airway Cardiovascular status: acceptable and hemodynamically stable Respiratory status: acceptable, face mask, nonlabored ventilation and spontaneous ventilation Hydration status: acceptable Nausea/Vomiting: No No notable events documented. * Anesthesia Procedure Notes - Daniela Kowalski CRNA - 08/02/2025 4:10 PM EDT Associated Order(s): Airway Airway Date/Time: 08/02/2025 4:04 PM Reason: elective Airway not difficult General Information and Staff Patient location during procedure: OR CENTRAL STERILIZATION TECHNICIAN: Daniela Kowalski CRNA Performed: CENTRAL STERILIZATION TECHNICIAN Patient Condition Indications for airway management: anesthesia Patient position: sniffing MILS maintained throughout Final Airway Details Final airway type: LMALMA Size: 4 LMA Type: normal Additional Comments Atraumatic, dentition unchanged * Anesthesia Preprocedure Evaluation - Josey Griggs MD - 08/02/2025 2:59 PM EDT TRISTON Lincoln is a 80 y.o. 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 Date scheduled is 08/02/2025. Past Medical History[1] Family History[2] Social History[3] SURGICAL HISTORY: Surgical History[4] Allergies[5] MEDICATIONS: Current Medications[6] Relevant Problems No relevant active problems ALLERGIES Allergies[7] NPO STATUS Date of Last Liquid: 08/01/25 Time of Last Liquid: 1800 Date of Last Solid: 08/01/25 Time of Last Solid: 1800 Last Intake Type: Clear fluids, Solid meal Time of Last Void: 1337 Past Medical History[8] AIRWAY HISTORY Airway Detailed Review Displaying the 20 most recent records No records found. MEDICATIONS Outpatient Current Outpatient Medications Medication Instructions acetaminophen (TYLENOL) 1,000 mg, Every 6 hours PRN Scheduled Current Scheduled Medications[9] PRNs Current PRN Medications[10] SURGICAL HX: Surgical History[11] SOCIAL HX: Social History[12] OBJECTIVE DATA LABS No results found for: WBC , HGB , HCT , MCV , PLT No results found for: CALCIUM , BUN , CREATININE , BCR , NA , K , CL , CO2 , AG , CA Type and Screen No results found for: ABO No results found for: HGBA1C No results found for: PGLU , GLUCOSE ABG No results found for: PHART , TEY1FOM , PO2ART , SO2ART , BEART , IUN5BKO , HCTART , SODIUMART , POTASSIUMART , POCTCL , POCGLU , IONCALART , LACTATE No results found for: PH , PCO2 , PO2 , X3YWECEV , BASEEXC , HCTSYR , KSYR , CLSYR , GLUSYR , CAION , LACTATE ECHO No echocardiogram results found for the past 12 months PFTs No results found for: AKH8BEL , YYZ3QXRI , BKA9TXN , FVCPRED BP Readings from Last 5 Encounters: 08/02/25 (!) 155/90 Physical Exam Airway Mallampati: II Mouth opening: normal TM distance: >3 FB Neck ROM: full Cardiovascular Rhythm: regular Rate: normal Dental (+) edentulous Comments: Only has 1 upper tooth Pulmonary Breath sounds clear to auscultation Neurological Oriented: normal to time, normal to place and normal to person Skin Musculoskeletal Extremities Anesthesia Plan ASA 1 Plan was reviewed with: CENTRAL STERILIZATION TECHNICIAN Anesthesia technique(s) discussed with the patient/family: general Anesthesia plan agreed upon was: general Anesthetic plan and risks discussed with patient. ROS Anesthesia: Does not have history of previous anesthesia. Anesthesia ROS additional comments: Brother denies family issues with GA Cardiovascular: Exercise tolerance is 1 flight of stairs. Does not have chest pain. Respiratory: no asthma: HEENT: HEENT additional comments: Hearing loss. Neurological: no seizures: Did not have a cerebrovascular accident. Gastrointestinal: Does not have GERD. Endocrine/Metabolic: does not have diabetes mellitus. 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 To OR for Left eye enucleation with orbital implantinsertion on 08/02/25 [2] Family History Problem Relation Name Age of Onset Heart disease Mother Cancer Father Cancer Sister Cancer Brother Malig Hypertension Neg Hx [3] Social History Tobacco Use Smoking status: Former Current packs/day: 0.00 Types: Cigarettes Quit date: 07/18/1975 Years since quittin.0 Passive exposure: Past Smokeless tobacco: Never Vaping Use Vaping status: Never Used Substance Use Topics Alcohol use: Not Currently Drug use: Not Currently [4] Past Surgical History: Procedure Laterality Date SKIN CANCER EXCISION Pt unsure when procedure was done. Local ANS. 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 To OR for Left eye enucleation with orbital implantinsertion on 08/02/25 [9] [10] PRN medications: lidocaine, Insert peripheral IV AND Saline lock IV AND sodium chloride [11] Past Surgical History: Procedure Laterality Date SKIN CANCER EXCISION Pt unsure when procedure was done. Local ANS. [12] Social History Tobacco Use Smoking status: Former Current packs/day: 0.00 Types: Cigarettes Quit date: 07/18/1975 Years since quittin.0 Passive exposure: Past Smokeless tobacco: Never Vaping Use Vaping status: Never Used Substance Use Topics Alcohol use: Not Currently Drug use: Not Currently documented in this encounter Plan of Treatment Upcoming Encounters Date Type Department Care Team (Late st Contact Info) Description 11/21/2025 10:00 AM EST Office Visit [facility] [address] [place] [address] Sridhar Mathew MD [address] [place] [address] documented as of this encounter Procedures Procedure Name Priority Date/Time Associated Diagnosis Comments PB ANESTHESIA PLACEHOLDER Routine 08/02/2025 4:04 PM EDT SD AN ELECTIVE SUPRAGLOTTIC AIRWAY Routine 08/02/2025 4:04 PM EDT documented in this encounter Results * SD AN ELECTIVE SUPRAGLOTTIC AIRWAY, PB ANESTHESIA PLACEHOLDER (08/02/2025 4:04 PM EDT) Narrative Daniela Kowalski CRNA - 08/02/2025 4:04 PM EDT Daniela Kowalski CRNA 08/02/2025 4:10 PM Airway Date/Time: 08/02/2025 4:04 PM Reason: elective Airway not difficult General Information and Staff Patient location during procedure: OR CENTRAL STERILIZATION TECHNICIAN: Daniela Kowalski CRNA Performed: LILO Patient Condition Indications for airway management: anesthesia Patient position: sniffing MILS maintained throughout Final Airway Details Final airway type: LMALMA Size: 4 LMA Type: normal Additional Comments Atraumatic, dentition unchanged Randell Jones MD ANESTHESIA ORDERABLES Final Resu lt documented in this encounter Visit Diagnoses Not on filedocumented in this encounter Administered Medications Inactive Administered Medications - up to 3 most recent administrations Medication Order MAR Action Action Date Dose Rate Site dexamethasone (Decadron) injection Intravenous, As needed, Starting on Gretta 08/02/25 at 1606, Until Gretta 08/02/25 at 1648, Routine, Anesthesia Intraprocedure Given 08/02/2025 4:06 PM EDT 4 mg fentaNYL (Sublimaze) injection Intravenous, As needed, Starting on Gretta 08/02/25 at 1603, Until Gretta 08/02/25 at 1648, Routine, Anesthesia Intraprocedure Given 08/02/2025 4:28 PM EDT 25 mcg Given 08/02/2025 4:24 PM EDT 25 mcg Given 08/02/2025 4:03 PM EDT 50 mcg glycopyrrolate (Robinul) injection Intravenous, As needed, Starting on Gretta 08/02/25 at 1615, Until Gretta 08/02/25 at 1648, Routine, Anesthesia Intraprocedure Given 08/02/2025 4:15 PM EDT 0.2 mg labetalol (Normodyne,Trandate) injection Intravenous, As needed, Starting on Gretta 08/02/25 at 1626, Until Gretta 08/02/25 at 1648, Routine, Anesthesia Intraprocedure Given 08/02/2025 4:30 PM EDT 5 mg Given 08/02/2025 4:28 PM EDT 5 mg Given 08/02/2025 4:26 PM EDT 5 mg lactated Ringer's infusion 100 mL/hr, Intravenous, Continuous, Starting on Gretta 08/02/25 at 1515, Until Gretta 08/02/25 at 202, Routine New Bag 08/02/2025 3:30 PM EDT lidocaine PF (Xylocaine) 2 % injection Intravenous, As needed, Starting on Gretta 08/02/25 at 1603, Until Gretta 08/02/25 at 1648, Routine, Anesthesia Intraprocedure Given 08/02/2025 4:03 PM EDT 40 mg ondansetron (Zofran) injection Intravenous, As needed, Starting on Gretta 08/02/25 at 1606, Until Gretta 08/02/25 at 1648, Routine, Anesthesia Intraprocedure Given 08/02/2025 4:06 PM EDT 4 m g propofol (Diprivan) injection Intravenous, As needed, Starting on Gretta 08/02/25 at 1603, Until Gretta 08/02/25 at 1648, Routine, Anesthesia Intraprocedure Given 08/02/2025 4:24 PM EDT 50 mg Given 08/02/2025 4:03 PM EDT 150 mg documented in this encounter Additional Health Concerns Assessment Noted Time A fall risk assessment has been complete d for the patient 07/18/2025 12:58 PM EDT A Body Mass Index follow-up plan has been documented for the patient 07/30/2025 12:13 PM EDT documented as of this encounter Care Teams Insurance Agency Manager Relationship Specialty Start Date End Date Pcp, Judit [address] [place] [address] PCP - General Family Medicine 07/26/25 documented as of this encounter
--- OUTSIDE RECORDS SUMMARY | 2025-08-06 16:57 | XMS_ITS | Encounter Summary ---
Author Organization Healthcare Address [address] [place] [address] Care Team Providers Care Dietetics Teacher Name Role Phone Pcp, No Primary Care Provider Unavailabl e Reason for Visit * Reason Comments Eye Problem Pt co eye pain after recent surgery, sent here from [facility]. Surgreon concerned with possible bradycardia. Encounter Details Date Type Department Care Team ([facility] Contact Info) Description 08/06/2025 4:57 PM EST - 08/06/2025 9:05 PM EST Emergency [facility] Emergency Department [address] [place] [address] Rogelio Stanley MD [address] [place] [address] Ocular discharge (Primary Dx); Acute nonintractable headache, unspecified headache type Discharge Disposition: Home or Self Care Social [...] Sign Reading Time Taken Comments Blood Pressure 178/87 08/06/2025 8:58 PM EST Pulse 60 08/06/2025 8:58 PM EST Temperature 36.7 C (98.1 F) 08/06/2025 6:53 PM EST Respiratory Rate 13 08/06/2025 8:58 PM EST Oxygen Saturation 95% 08/06/2025 8:58 PM EST Inhaled Oxygen Concentration - - Weight 74.8 kg (165 lb) 08/06/2025 3:41 PM EST Height 162.6 cm (5' 4 ) 08/06/2025 3:41 PM EST Body Mass Index 28.32 08/06/2025 3:41 PM EST documented in this encounter Functional Status * Calculated C-SSRS Risk Score (Lifetime/Recent) Answer Date of Assessment Author No Risk Indicated 08/06/2025 5:04 PM EST Michell Schaffer RN * Question Answer Date of Assessment Author 1. Wish to be (Past 1 Month) No 025 5:04 PM EST Michell Schaffer RN 2. Non-Specific Active Suici danelle Thoughts (Past 1 Month) No 08/06/2025 5:04 PM EST Michael Schaffer RN 6. Suicidal Behavior (Lifetime) No 5:04 PM EST Michell Schaffer RN documented as of this encounter Discharge Instructions * Discharge Instructions* Moe Pereira MD - 08/06/2025 8:43 PM EST You were seen and evaluated in the Emergency Department for evaluation by ophthalmology given concern for infection at surgical site. I have prescribed you a 10 course of antibiotics. Please take as prescribed. You may use cold compresses as needed on the left eye. Please follow-up outpatient with O phthalmology. Please return to ED if your symptoms worsen, change in location, change in severity, new symptoms develop or if you become concerned for your health. Please follow-up with your PCP within 2 days for your symptoms. documented in this encounter Medications at Time of Discharge acetaminophen (Tylenol) 500 MG tablet Take 2 tablets by mouth every 6 hours as needed. HYDROcodone-aceta minophen ([place]) 5-325 MG tablet Take 1 tablet by mouth every 6 hours as needed for severe pain. 10 tablet 08/02/2025 ondansetron (Zofran) 4 MG tablet Take 1 tablet by mouth every 8 hours as needed for nausea or vomiting. 20 tablet 08/02/2025 amoxicillin-clavu lanate (Augmentin) 875-125 MG tabletIndications :Ocular discharge Take 1 tablet by mouth 2 times a day for 10 days. 20 tablet 08/06/2025 08/16/2025 documented as of this encounter Miscellaneous Notes * Consults - Jacques Zhong MD - 08/06/2025 9:01 PM ESTAssociated Order(s): IP CONSULT TO OPHTHALMOLOGY Images from the original note were not included. [facility] Department of Ophthalmology Ophthalmology Consult Note Requesting Service: ED Reason for Consult: Post enucleation infection Exam Date: 08/06/2025 9:01 PM History of Present Illness: Zaynab Lincoln is a 80 y.o. 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 Presented to outside ED for chest pain, also with left facial pain and discharge fromsurgical site. Family believes this was purulent. Sent to with concerns for post op infection. Past Medical & Surgical History Past Medical History[1] Surgical History[2] Past Ocular History: See HPI Medications: Current Outpatient Medications Medication Instructions acetaminophen (TYLENOL) 1,000 mg, Every 6 hours PRN amoxicillin-clavulanate (Augmentin) 875-125 MG tablet 1 tablet, Oral, 2 times daily HYDROcodone-acetaminophen ([place]) 5-325 MG tablet 5 mg of hydrocodone, Oral, Every 6 hours PRN ondansetron (ZOFRAN) 4 mg, Oral, Every 8 hours PRN Allergies: Allergies[3] Social History: Social History[4] Review of Systems 14 point review of systems negative unless otherwise stated in HPI Physical Examination: Vitals Blood pressure (!) 178/87, pulse 60, temperature 36.7 ??C (98.1 ??F), temperature source Oral, resp. rate 13, height 1.626 m (5' 4 ), weight 74.8 kg (165 lb), SpO2 95%. General In no acute distress Neurology Alert & Oriented x3 Base Eye Exam Neuro/Psych Oriented x3: Yes Mood/Affect: Normal Slit Lamp and Fundus Exam External Exam Right Left External Normal Normal Slit Lamp Exam Right Left Lids/Lashes mild blepharitis, lateral DCL Tars suture inplace, edema, echymosis, serous discharge, no purulence Conjunctiva/Sclera Normal enuc Cornea Clear and compact enuc Anterior Chamber Deep and quiet enuc Iris Normal pupil size and shape enuc Lens PCIOL enuc Anterior Vitreous Normal enuc Assessment & Plan: #s/p left eye enucleation and orbital implant and temp tarsorrhaphy - No signs of post op infection. Discharge mostly serous, no josey purulence on palpation. - Afebrile. - Surgical site appears as expected. Recommendations - Discussed frequent cold compresses 20 min out of every hour while awake. - Ointment to sutures - Can do Augmentin x 10 days prophylacticly. - Follow up in clinic for post op as scheduled. Patient's case, workup, imaging, assessment and plan was discussed with Dr. Gaxiola Thank you for this consult. Please call with any further questions. Jacques Zhong MD Ophthalmology, PGY3 For a list of common ophthalmology abbreviations, please refer to: [email or web address] [1] Past Medical History: Diagnosis Date Dental [...] enucleation with orbital implantinsertion on 08/02/25 [2] Past Surgical History: Procedure Laterality Date SKIN CANCER EXCISION Pt unsure when procedure was done. Local ANS. [3] No Known Allergies [4] Social History Tobacco Use Smoking status: Former Current packs/day: 0.00 Types: Cigarettes Quit date: 07/18/1975 Years since quittin.0 Passive exposure: Past Smokeless tobacco: Never Vaping Use Vaping status: Never Used Substance Use Topics Alcohol use: Not Currently Drug use: Not Currently Cosigned by Medina Gaxiola MD at 08/07/2025 12:26 PM EST * ED Notes - Mirian Amezquita RN - 08/06/2025 8:32 PM EST Left eyelid cleansed with saline per patient request * Progress Notes - Shanell Franz RN - 08/06/2025 5:08 PM EST Geriatric Alert Note TRST=0 EASI=0 MNA-11 No concerns for malnutrition, pt just had recent surgery, pt lives with * ED Provider Notes - Rogelio Stanley MD - 08/06/2025 3:24 PM EST Images from the original note were not included. - HPI Chief Complaint Patient presents with Eye Problem Pt co eye pain after recent surgery, sent here from [facility]. Surgreon concerned with possible bradycardia. PIT NOTE Zaynab Lincoln is a 80 y.o. male who presents to the ED with eye problem. Per , pt was experiencing CP and was taken to [facility]. At OSH pt was found to be bradycardic but cardiac workup was normal. states pt sx were attributed to pt recent eye surgery for excision of malignant mass on . states pt did not complain of any sx following surgery until today. denies pthx of bradycardia, but does note hx of hypertension. denies pt hx of afib or other cardiac conditions. He says CP has resolved at this time. Patient has no other complaints at this time. MAIN ED NOTE//Moe Pereira MD: I assumed full responsibility for this patient after transfer to Main ED from [facility]. I personally performed my own history, ROS, and physical. 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 Per transfer note, patient was noted to be in atrial fibrillation and was as ymptomatic. Cardiac workup negative for ACS. Chest pain resolved with GI cocktail. Was found to have purulent drainage from his left eye socket, so he was sent to [facility] for evaluation due to concern for possible post-operative infection. Denies fevers. electron beam photo mask maker used: No Patient History Past Medical History[1] Surgical History[2] Family History[3] Social History[4] Allergies: Allergies[5] Physical Exam ED Triage Vitals [08/06/25 1538] Temp Heart Rate Resp BP 36.9 ??C (98.4 ??F) 65 17 (!) 152/78 SpO2 Temp src Heart Rate Source Patient Position 97 % -- -- -- BP Location FiO2 (%) -- -- Physical Exam Constitutional: General: He is not in acute distress. HENT: Head: Normocephalic. Comments: Left eye with dried yellow secretions. Top and bottom eyelid closed together with suture.Ecchymosis just inferior to the eye. Cardiovascular: Rate and Rhythm: Normal rate and regular rhythm. Pulmonary: Effort: Pulmonary effort is normal. No respiratory distress. Breath sounds: Normal breath sounds and air entry. Abdominal: General: Abdomen is flat. There is no distension. Palpations: Abdomen is soft. Tenderness: There is no abdominal tenderness. Musculoskeletal: Right lower leg: No edema. Left lower leg: No edema. Neurological: Mental Status: He is alert. Mental status is at baseline. Psychiatric: Behavior: Behavior normal. EASI ?? Total Score: 0 Tessa Coma Scale Score: 15 Mini Nutritional Screening Score : 11 TRST Assessment Total: 0 ED Course & MDM Date/Time: 08/06/2025 8:54 AM Scribe Attestation: This note was dictated to me, Ana Grey, acting as a scribe for Lillian Garcia MD. Attending Attestation: The documentation was recorded by Ana Grey acting as scribe in my presence at the time of the encounter and accurately reflects the service I personally performed. - Assessment: 80 y.o. male presents to ED with complaint of ocular discharge after undergoing ocular surgery on 08/02. It should be noted that the chronic conditions includes HTN and malignant melanoma of the eye s/p enucleation, which currently is not at goal therapy. This complicates the clinical picture because it Comorbidities: increases the risk for morbidity Differential Diagnosis: post-operative infection, normal post-operative course, migraine, hypertension-induced headache, electrolyte abnormalities, arrhythmia In order to fully explore the differential diagnosis the following treatments and tests were ordered: ED Medication Administration from 08/06/2025 1340 to 08/07/2025 0854 Date/Time Order Dose Route Action 08/06/20252031 EST acetaminophen (Tylenol) tablet 1,000 mg 1,000 mg Oral Given All Other Orders Ordered Status Ordering Provider 08/06/25 1907 Inpatient consult to Ophthalmology Once Specialty: Ophthalmology Provider: (Not yet assigned) Completed MOE PEREIRA 08/06/25 1652 CMP STAT Final result LILLIAN GARCIA 08/06/25 1652 Magnesium STAT Final result LILLIAN GARCIA 08/06/25 1652 CBC w/diff STAT Final result LILLIAN GARCIA 08/06/25 1652 EKG now - STAT (adult) Once Preliminary result LILLIAN GARCIA 08/06/25 1652 Hepatitis C Antibody - ED Once Final result LILLIAN GARCIA 08/06/25 1652 ED Protocol - HIV 1/2 Antibody/Antigen Screen Once Final result LILLIAN GARCIA 08/06/25 1652 ED HIV 1/2 Antibody/Antigen Screen w/Reflex to HIV 1/2 Differentiation PROCEDURE ONCE Final result LILLIAN GARCIA Patient was hemodynamically stable, saturating well on room air, afebrile with a GCS of 15 on my initial evaluation. Denied chest pain. Complained of headache on the left side. Records from outside facility were reviewed. Patient was experiencing chest pain presented to the hospital, but there was concern with possible infection at surgical site where patient recently had enucleation. CBC was reviewed and personally interpreted by me as unremarkable for any actionable leukocytosis, anemia, or thrombocytopenia. CMP was reviewed and personally interpreted by me as unremarkable for any actionable electrolyte derangement, elevated creatinine, or transaminitis. EKG reviewed and personally interpreted by me as sinus rhythm with OK interval of 108 and presence of PVCs. No evidence of atrial fibrillation. No ST segment changes to indicate ischemia/infarction. Given concern for post-operative infection, consulted ophthalmology. Interactive discussion was obtained and management was discussed. After their evaluation, they stated that there is no evidence ofactive infection. However, given patient's and family's concern about drainage, recommended a 10 day course of Augmentin. This was sent to the patient's preferred pharmacy. Reassess patient. States that he still has a headache, but feels better than he did earlier today. Both the patient and his family express how much better his eye looks after nursing staff cleaned it. Based on the above HPI, physical exam, and test results, patient was deemed safe and appropriate for discharge. Patient amenable. He will follow-up with opthalmology outpatient. Clinical Impressions as of 08/07/25 0854 Ocular discharge Acute nonintractable headache, unspecified headache type Social Determinates of Health Risks (including Economic Stability, Education and level of understanding, Healthcare access and quality and concerning social factors): Lives far away Ultimately, this patient was Was discharged Home (Discharge) The primary encounter diagnosis was Ocular discharge. A diagnosis of Acute nonintractable headache, unspecified headache type was also pertinent to this visit. . Patient was counseled on the diagnoses. Discharge medications if any are listed below. Listed medications are thought be either curative for listed diagnoses or will help control ongoing symptoms. Patient is requested to follow up with Ophthalmology in order to obtain routine follow-up. Instructions on follow up as well as precautions to return to the ER provided verbally by the EM provider, as well as written in patientsdischarge education packet. ED Prescriptions Medication Sig Dispense Start Date End Date Auth. Provider amoxicillin-clavulanate (Augmentin) 875-125 MG tablet Take 1 tablet by mouth 2 times a day for 10 days. 20 tablet 08/06/2025 08/16/2025 Rogelio Stanley MD Discharge Instructions You were seen and evaluated in the Emergency Department for evaluation by ophthalmology given concern for infection at surgical site. I have prescribed you a 10 course of antibiotics. Please take as prescribed. You may use cold compresses as needed on the left eye. Please follow-up outpatient with O phthalmology. Please return to ED if your symptoms worsen, change in location, change in severity, new symptoms develop or if you become concerned for your health. Please follow-up with your PCP within 2 days for your symptoms. Disposition Discharge AVS ([facility] [employer]apshot) - Printed 08/06/2025 Follow-Ups: Schedule an appointment with [facility] (Family Medicine) in 2 days (08/08/2025) - Moe Pereira MD PGY-1, Emergency Medicine Moe Pereira MD Resident 08/07/25 0855 Rogelio Galvan MD, personally saw the patient, performed critical or escalante portions of the service including being present and available at all procedures, and discussed the care with the Resident. I saw and evaluated the patient. I discussed the case with the resident and agree with the findingsand plan as documented. [1] Past Medical History: Diagnosis Date Dental [...] enucleation with orbital implantinsertion on 08/02/25 [2] Past Surgical History: Procedure Laterality Date SKIN CANCER EXCISION Pt unsure when procedure was done. Local ANS. [3] Family History Problem Relation Name Age of Onset Heart disease Mother Cancer Father Cancer Sister Cancer Brother Malig Hypertension Neg Hx [4] Tobacco Use Smoking status: Former Current packs/day: 0.00 Types: Cigarettes Quit date: 07/18/1975 Years since quittin.0 Passive exposure: Past Smokeless tobacco: Never Vaping Use Vaping status: Never Used Substance Use Topics Alcohol use: Not Currently Drug use: Not Currently [5] No Known Allergies Rogelio Stanley MD 08/09/25 1518 * ED Triage Notes - Luis Carlos Wilson RN - 08/06/2025 3:24 PM EST Pt co eye pain after recent surgery, sent here from [facility]. Surgreon concerned with possible bradycardia. documented in this encounter Plan of Treatment Upcoming Encounters Date Type Department Care Team (Late st Contact Info) Description 11/21/2025 10:00 AM EST Office Visit [facility] [address] [place] [address] Sridhar Mathew MD [address] [place] [address] documented as of this encounter Procedures Procedure Name Priority Date/Time Associated Diagnosis Comments ED HIV 1/2 ANTIBODY/ANTIGEN SCREEN WITH REFLEX TO HIV I/II DIFFERENTIATION STAT 08/06/2025 5:40 PM EST ED PROTOCOL HIV 1/2 ANTIBODY/ANTIGEN SCREEN W/REFLEX TO HIV 1/2 ANTIBODY DIFFERENTIATION STAT 08/06/2025 5:40 PM EST HEPATITIS C ANTIBODY - ED W/REFLEX TO HCV QUANT PCR STAT 08/06/2025 5:40 PM EST CBC WITH AUTO DIFFERENTIAL STAT 08/06/2025 5:40 PM EST MAGNESIUM, PLASMA STAT 08/06/2025 5:4 0 PM EST COMPREHENSIVE METABOLIC PANEL, PLASMA STAT 08/06/2025 5:40 PM EST ECG ADULT STAT 08/06/2025 5:08 PM EST documented in this encounter Results * ED HIV 1/2 Antibody/Antigen Screen w/Reflex to HIV 1/2 Differentiation (08/06/2025 5:40 PM EST) HIV 1 & 2 Antibody/Antigen Screen Non Reactive Non Reactive 08/06/2025 6:48 PM EST [facility] Comment:Screening for HIV 1 & 2 antibodies, and P24 antigen is NONREACTIVE. No confirmatory testing is required. Blood Venous blood specimen / Unknown Venipuncture / Unknown 08/06/2025 5:40 PM EST 08/06/2025 5:52 PM EST us Lillian Garcia MD LAB BLOOD ORDERABLES Final Re sult Performing Organization Address City/[facility]/ZIP Co de Phone Number [facility] [address] [place] [address] * Hepatitis C Antibody - ED (08/06/2025 5:40 PM EST) Hepatitis C Antibody Negative Negative 08/06/2025 6:46 PM EST [facility] Blood Venous blood specimen / Unknown Venipuncture / Unknown 08/06/2025 5:40 PM EST 08/06/2025 5:52 PM EST us Lillian Garcia MD LAB BLOOD ORDERABLES Final Re sult Performing Organization Address City/[facility]/ZIP Co de Phone Number [facility] [address] [place] [address] * (ABNORMAL) CBC w/diff (08/06/2025 5:40 PM EST) WBC Count 10.17 3.70 - 10.30 10*3/uL LAB HEMATOLOGY METHOD 08/06/2025 6:26 PM EST [facility] RBC Count 4.95 4.60 - 6.10 10*6/uL LAB HEMATOLOGY METHOD 08/06/2025 6:26 PM EST [facility] HGB 14.3 13.7 - 17.5 g/dL LAB HEMATOLOGY METHOD 08/06/2025 6:26 PM EST [facility] HCT 43.0 40.0 - 51.0 % LAB HEMATOLOGY METHOD 08/06/2025 6:26 PM EST [facility] Platelet Count 289 155 - 369 10*3/uL LAB HEMATOLOGY METHOD 08/06/2025 6:26 PM EST [facility] MCV 87 79 - 98 fL LAB HEMATOLOGY METHOD 08/06/2025 6:26 PM EST [facility] MCH 28.9 26.0 - 32.0 pg LAB HEMATOLOGY METHOD 08/06/2025 6:26 PM EST [facility] MCHC 33.3 30.7 - 35.5 g/dL LAB HEMATOLOGY METHOD 08/06/2025 6:26 PM [facility] RDW 13.4 11.5 - 14.5 % LAB HEMATOLOGY METHOD 08/06/2025 6:26 PM [facility] MPV 10.6 8.8 - 12.5 fL LAB HEMATOLOGY METHOD 08/06/2025 6:26 PM [facility] nRBC 0.0 <=0.0 per 100 WBCs LAB HEMATOLOGY METHOD 08/06/2025 6:26 PM [facility] Differential Type Automated LAB HEMATOLOGY METHOD 08/06/2025 6:26 PM [facility] Neutrophils % 83 % LAB HEMATOLOGY METHOD 08/06/2025 6:26 PM [facility] Lymphocytes % 8 % LAB HEMATOLOGY METHOD 08/06/2025 6:26 PM [facility] Monocytes % 9 % LAB HEMATOLOGY METHOD 08/06/2025 6:26 PM [facility] Eosinophils % 0 % LAB HEMATOLOGY METHOD 08/06/2025 6:26 PM [facility] Basophils % 0 % LAB HEMATOLOGY METHOD 08/06/2025 6:26 PM [facility] Immature Granulocytes % 0 % LAB HEMATOLOGY METHOD 08/06/2025 6:26 PM [facility] Neutrophils Absolute 8.43(H) 1.60 - 6.10 10*3/uL LAB HEMATOLOGY METHOD 08/06/2025 6:26 PM [facility] Lymphocytes Absolute 0.76(L) 1.20 - 3.90 10*3/uL LAB HEMATOLOGY METHOD 08/06/2025 6:26 PM [facility] Monocytes Absolute 0.91(H) 0.30 - 0.90 10*3/uL LAB HEMATOLOGY METHOD 08/06/2025 6:26 PM [facility] Eosinophils Absolute 0.01 0.00 - 0.50 10*3/uL LAB HEMATOLOGY METHOD 08/06/2025 6:26 PM [facility] Basophils Absolute 0.03 0.00 - 0.10 10*3/uL LAB HEMATOLOGY METHOD 08/06/2025 6:26 PM [facility] Immature Granulocytes Absolute 0.03 0.00 - 0.06 10*3/uL LAB HEMATOLOGY METHOD 08/06/2025 6:26 PM EST [facility] Blood Venous blood specimen / Unknown Venipuncture / Unknown 08/06/2025 5:40 PM EST 08/06/2025 5:57 PM EST Narrative [facility] - 08/06/2025 6:26 PM EST Therapeutic decision making should be based on absolute values, rather than percentages. Lillian Gacria MD LAB BLOOD ORDERABLES Final Re sult Performing Organization Address [place]/[facility]/ZIP Co de Phone Number [facility] [address] [place] [address] * (ABNORMAL) Magnesium (08/06/2025 5:40 PM EST) Magnesium, Plasma 1.8(L) 1.9 - 2.4 mg/dL 08/06/2025 6:34 PM EST [facility] Blood Venous blood specimen / Unknown Venipuncture / Unknown 08/06/2025 5:40 PM EST 08/06/2025 5:52 PM EST us Lillian Garcia MD LAB BLOOD ORDERABLES Final Re sult Performing Organization Address City/[facility]/ZIP Co de Phone Number [facility] [address] [place] [address] * (ABNORMAL) CMP (08/06/2025 5:40 PM EST) Glucose, Plasma 107(H) 74 - 99 mg/dL 08/06/2025 6:34 PM EST [facility] BUN, Plasma 13 8 - 23 mg/dL 08/06/2025 6:34 PM EST [facility] Creatinine, Plasma 0.92 0.70 - 1.20 mg/dL 08/06/2025 6:34 PM EST [facility] BUN/Creatinine Ratio 14 08/06/2025 6:34 PM EST [facility] Sodium, Plasma 134(L) 136 - 145 mmol/L 08/06/2025 6:34 PM EST [facility] Potassium, Plasma 4.6 3.6 - 4.9 mmol/L 08/06/2025 6:34 PM EST [facility] Chloride, Plasma 98 97 - 107 mmol/L 08/06/2025 6:34 PM EST [facility] CO2, Plasma 26 22 - 29 mmol/L 08/06/2025 6:34 PM EST [facility] Anion Gap 10 6 - 16 mmol/L 08/06/2025 6:34 PM EST [facility] Total Calcium, Plasma 10.4(H) 8.9 - 10.2 mg/dL 08/06/2025 6:34 PM EST [facility] Total Protein 7.3 6.3 - 7.9 g/dL 08/06/2025 6:34 PM EST [facility] Albumin, Plasma 4.2 3.5 - 5.2 g/dL 08/06/2025 6:34 PM EST [facility] AST, Plasma 19 10 - 50 U/L 08/06/2025 6:34 PM EST [facility] Comment:Hemolyzed, result ma y be falsely increased. ALT, Plasma 20 10 - 50 U/L 08/06/2025 6:34 PM EST [facility] Alkaline Phosphatase, Plasma 122(H) 40 - 115 U/L 08/06/2025 6:34 PM EST [facility] Total Bilirubin, Plasma 0.8 0.2 - 1.1 mg/dL 08/06/2025 6:34 PM EST [facility] eGFRcr 84.6 mL/min/1.7 3m*2 08/06/2025 6:34 PM EST [facility] Comment:Reported eGFRcr in m L/min/1.73m2 is based the CKD-EPI 2020 equation that does not use a race coefficient. Blood Venous blood specimen / Unknown Venipuncture / Unknown 08/06/2025 5:40 PM EST 08/06/2025 5:52 PM EST us Lillian Garcia MD LAB BLOOD ORDERABLES Final Re sult [facility] [address] [place] [address] * EKG now - STAT (adult) (08/06/2025 5:08 PM EST) EKG DIAGNOSIS CLASS Abnormal MUSE ECG Ventricular Rate 66 BPM MUSE ECG Atrial Rate 66 BPM MUSE ECG [place] Interval 108 ms MUSE ECG QRSD Interval 104 ms MUSE ECG QT Interval 398 ms MUSE ECG QTC Interval 417 ms MUSE ECG P [place] 2 degrees MUSE ECG R [place] -27 degrees MUSE ECG T Wave [place] 52 degrees MUSE ECG Diagnosis Sinus rhythm with short [place] with occasional premature ventricular complexes MUSE ECG Diagnosis Minimal voltage criteria for LVH, may be normal variant ( Michael product ) MUSE ECG Diagnosis Poor R-wave progression ; consider septal infarct, lead placement, or normal variant MUSE ECG Diagnosis Abnormal ECG MUSE ECG Diagnosis MUSE ECG Diagnosis Confirmed by Nadine Raymundo ([id number]) on 08/07/2025 8:55:31 AM MUSE ECG 08/06/2025 5:08 PM EST 08/07/2025 8:55 AM EST us Lillian Garcia MD ECG ORDERABLES Final Result MUSE ECG documented in this encounter Visit Diagnoses Diagnosis Ocular discharge- Primary Acute nonintractable headache, unspecified headache type documented in this encounter Administered Medications Inactive Administered Medications - up to 3 most recent administrations Medication Order MAR Action Action Date Dose Rate Site acetaminophen (Tylenol) tablet 1,000 mg 1,000 mg, Oral, Once, 1 dose, On Wed08/06/25 at 2024, STAT Given 08/06/2025 8:32 PM EST 1,000 mg documented in this encounter Active and Recently Administered Medications Due to Daylight Saving Time, this section may contain times in both EDT and EST. Scheduled Medication Order 08/04/2025 08/05/2025 08/06/2025 acetaminophen (Tylenol) tablet 1,000 mg (COMPLETED) 1,000 mg, Oral, Once, 1 dose, On Wed08/06/25 at 2024, STAT 2031 (Given - Provid er: Mirian Amezquita RN) documented in this encounter Additional Health Concerns Assessment Noted Time A fall risk assessment has been complete d for the patient 07/18/2025 12:58 PM EDT A Body Mass Index follow-up plan has been documented for the patient 07/30/2025 12:13 PM EDT documented as of this encounter Care Teams Dietetics Teacher Relationship Specialty Start Date End Date P[place], [place] [address] PCP - General Family Medicine 07/26/25 documented as of this encounter
--- OUTSIDE RECORDS SUMMARY | 2025-08-08 11:15 | XMS_ITS | Encounter Summary ---
Author Organization Healthcare Address [address] [place] [address] Care Team Providers Care Or Rn Name Role Phone Pcp, No Primary Care Provider Unavailabl e Reason for Visit * Reason Comments Post-op Encounter Details Date Type Department Care Team (Late st Contact Info) Description 08/08/2025 11:15 AM EST Office Visit [facility] [address] [place] [address] Sridhar Mathew MD [address] [address] Acquired anophthalmos (Primary Dx) Social [...] with orbital implant insertion. Last edited by Medina Gaxiola MD on 08/08/2025 11:03 AM. No current outpatient medications on file. (Ophthalmic Drugs) No current facility-administered medications for this visit. (Ophthalmic Drugs) Current Outpatient Medications (Other) Medication Sig acetaminophen (Tylenol) 500 MG tablet Take 2 tablets by mouth every 6 hours as needed. amoxicillin-clavulanate (Augmentin) 875-125 MG tablet Take 1 tablet by mouth 2 times a day for 10 days. HYDROcodone-acetaminophen ([place]) 5-325 MG tablet Take 1 tablet by [...] Wounds healing well No infection or dehiscence Water Hauler referral placed Stop antibiotic eye ointment Monocular [...] Description 11/21/2025 10:00 AM EST Office Visit [facility] [address] [place] [address] Sridhar Mathew MD [address] [address] documented as of this encounter [...] documented as of this encounter Care Teams Or Rn Relationship Specialty Start Date End Date Pcp, No [address] [place] [address] PCP - General Family Medicine 07/26/25 documented as of this encounter
--- OUTSIDE RECORDS SUMMARY | 2025-08-29 12:45 | XMS_ITS | Encounter Summary ---
Author Organization Healthcare Address [address] [place] [address] Care Team Providers Care Rn Telephonic Name Role Phone Pcp, No Primary Care Provider Unavailabl e Reason for Visit * Reason Comments Post-op Encounter Details Date Type Department Care Team (Late st Contact Info) Description 08/29/2025 12:45 PM EST Office Visit [facility] [address] [place] [address] Sridhar Mathew MD [address] [address] Malignant melanoma of choroid of [...] encounter Miscellaneous Notes * Progress Notes - Medina Gaxiola MD - 08/29/2025 12:45 PM EST Subjective Patient ID: Zaynab Lincoln is a 80 y.o. male. Chief Complaint Post-op HPI Post-op Post-Op Follow-Up 1 week. In left eye. Comments Follow-up status post (s/p) left eye enucleation with orbital implant extrusion. Last edited by Medina Gaxiola MD on 08/29/2025 12:46 PM. No current outpatient medications on file. (Ophthalmic Drugs) No current facility-administered medications for this visit. (Ophthalmic Drugs) Current Outpatient Medications (Other) Medication Sig acetaminophen (Tylenol) 500 MG tablet Take 2 tablets by mouth every 6 hours as needed. HYDROcodone-acetaminophen (Wilson) 5-325 MG tablet Take 1 tablet by mouth every 6 hours as needed for severe pain. ondansetron (Zofran) 4 MG tablet Take 1 tablet by mouth every 8 hours as needed for nausea or vomiting. No current facility-administered medications for this visit. (Other) Objective Base Eye Exam Visual Acuity Right Left Dist sc 20/30 enucleation Pupils React Right + Left enucleation Extraocular Movement Right Left enucleation 0 0 0 0 0 0 0 0 -- -- -- -- -- -- -- -- Neuro/Psych Oriented x3: Yes Mood/Affect: Normal Slit Lamp and Fundus Exam External Exam Right Left External Normal, no evidence of cellulitis Slit Lamp Exam Right Left Lids/Lashes edema, echymosis, serous discharge, no evidence of infection or dehiscence purulence. Conjunctiva/Sclera No implant in situ, conjunctival wound dehiscence, donor sclera in situ Cornea enuc Anterior Chamber enuc Iris enuc Lens enuc Anterior Vitreous enuc Assessment/Plan Assessment & Plan POM#2 status post (s/p) left enucleation with 20 mm acrylic orbital implant insertion wrapped in donor sclera with extraocular muscles attached, left temporary tarsorrhaphy on 08/02/25. Pt presented to outside ED last weekend due to implant extrusion. Denies any pain or discomfort Notes occasional clear discharge No conformer in situ Wounds healing well No infection or cellulitis R/b/a Left DFG discussed. Pt understands and elects to OBSERVE for present. He is not interested inany additional surgery at this time. Antibiotic eye ointment BID to wounds x 2 weeks Monocular precautions discussed with pt Follow-up in November to discuss possible DFG if interested Patient instructed to notify if any issues Tobacco Use: Medium Risk (08/29/2025) Patient History Smoking Tobacco Use: Former Smokeless Tobacco Use: Never Passive Exposure: Past The patient has been counseled on tobacco cessation: Not Applicable Cosigned by Sridhar Mathew MD at 09/01/2025 6:43 PM EST Associated attestation - Sridhar Mathew MD - 09/01/2025 6:43 PM EST Signature only. documented in this encounter Plan of Treatment Upcoming Encounters Date Type Department Care Team (Late st Contact Info) Description 11/21/2025 10:00 AM EST Office Visit [facility] [address] [place] [address] Sridhar Mathew MD [address] [address] documented as of this encounter [...] documented as of this encounter Care Teams Rn Telephonic Relationship Specialty Start Date End Date P[place], [place] [address] PCP - General Family Medicine 07/26/25 documented as of this encounter
--- NOTE | 2025-09-25 | CA_ITS ---
APPROVED REPORT Exam: Pharmacologic Technologist: rIene Webb Stress Nurse: Dariaan GRIER, RN Ht: 5 ft 10 in Wt: 171 lbs BSA: 1.95 m2 HR: 64 bpm BP: 140/78 mmHg Indications: Dyspnea, Chest pain Stress Test Details Test: Lexiscan HR Resting HR: 64 bpm Max Heart Rate (APMHR): 141.712117 bpm Max HR Achieved: 86 bpm Target HR (85% APMHR): 119.311076 bpm % of APMHR: 60.99 Recovery HR: 79 bpm BP Resting BP: 140.0/78.0 mmHg Max BP: 140.0/72.0 mmHg Recovery BP: 131.0/74.0 mmHg ECG Resting ECG: Sinus rhythm, frequent PVC Stress ECG Conclusion Lungs clear to auscultation prior to test start. Symptoms: None Arrhythmias/Ectopy: PVC/Ventricular couplet ST-T Changes: Less than 0.[address] segment changes. Conclusion: Nondiagnostic ECG/Lexiscan Electronically signed by : Isela Flores MD 09/26/2025 21:10:38
--- OUTSIDE RECORDS SUMMARY | 2025-09-25 07:45 | XMS_ITS | Encounter Summary ---
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] Description 11/21/2025 10:00 AM EST Office Visit [facility] [address] [place] [address] Sridhar Mathew MD [address] [place] [address] documented as of this encounter Procedures Procedure Name Priority Date/Time Associated Diagnosis Comments AP MISCELLANEOUS LAB TEST (SO) Routine 08/02/2025 4:26 PM EDT Malignant neoplasm of left choroid (CMS/HCC) documented in this encounter Results * - AP Miscellaneous Test (08/02/2025 4:26 PM EDT) Test name Decision Dx, UM, UmSeq, [employer] 09/19/2025 9:14 AM EST [facility] Comment:[id number]; FedEx# [id number] Test Result See imported Documents 09/19/2025 9:14 AM [facility] See Scanned Result 09/19/2025 9:14 AM [facility] Tissue 08/02/2025 4:26 PM EDT 08/14/2025 2:39 PM EST us Katrin Ding MD LAB REF LAB BLOOD AND FLUID O RD Final Result [facility] [address] [place] [address] documented in this encounter Visit Diagnoses Diagnosis Malignant neoplasm of left choroid (CMS/HCC) documented in this encounter Additional Health Concerns Assessment Noted Time A fall risk assessment has been complete d for the patient 07/18/2025 12:58 PM EDT A Body Mass Index follow-up plan has been documented for the patient 07/30/2025 12:13 PM EDT documented as of this encounter Care Teams Block Cableman Relationship Specialty Start Date End Date Pcp, [place] [address] PCP - General Family Medicine 07/26/25 documented as of this encounter
--- OUTSIDE RECORDS SUMMARY | 2025-09-25 07:45 | XMS_ITS | Encounter Summary ---
Author Organization Healthcare Address [address] [place] [address] Care Team Providers Care Manager Skilled Name Role Phone Pcp, Judit Primary Care Provider Unavailabl e Encounter Details [...] Description 11/21/2025 10:00 AM EST Office Visit [facility] [address] [place] [address] Sridhar Mathew MD [address] [address] documented as of this encounter Visit Diagnoses Not on filedocumented in this encounter Additional Health Concerns Assessment Noted Time A fall risk assessment has been complete d for the patient 07/18/2025 12:58 PM EDT A Body Mass Index follow-up plan has been documented for the patient 07/30/2025 12:13 PM EDT documented as of this encounter Care Teams Manager Skilled Relationship Specialty Start Date End Date Pcp, Judit [address] [place] [address] PCP - General Family Medicine 07/26/25 documented as of this encounter
--- OUTSIDE RECORDS SUMMARY | 2025-09-25 07:45 | XMS_ITS | Encounter Summary ---
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) Procedures MR Abdomen w and wo IV Contrast Jose Miguel Mendieta MD 110 [facility] [address] [place] [address] Phone: tel: fax: Referral ID Status Reason Start Date Expiration Date Visits Re quested Visits Authorized [id number] Closed 07/27/2025 01/26/2027 1 1 Encounter Details Date Type Department Care Team (Late st Contact Info) Description 07/27/2025 Orders Only [facility] [address] [place] [address] Jose Miguel Mendieta MD 110 [facility] [address] [place] [address] Malignant melanoma of choroid of [...] Description 11/21/2025 10:00 AM EST Office Visit [facility] [address] [place] [address] Sridhar Mathew MD [address] [place] [address] documented as of this encounter Results * [...] using the following sequences: coronal single shot [id number] fast spin echo, axial T2 weighted sequences [...] documented as of this encounter Care Teams Jackaroo Relationship Specialty Start Date End Date Pcp, Judit [address] [place] [address] PCP - General Family Medicine 10/23/25 documented as of this encounter
--- OUTSIDE RECORDS SUMMARY | 2025-09-25 07:45 | XMS_ITS | Encounter Summary ---
Author Organization Healthcare Address [address] [place] [address] Care Team Providers Care Dairy Manager Name Role Phone Pcp, Judit Primary Care [...] Description 11/21/2025 10:00 AM EST Office Visit [facility] [address] [place] [address] Sridhar Mathew MD [address] [address] documented as of this encounter Visit Diagnoses Not on filedocumented in this encounter Additional Health Concerns Assessment Noted Time A fall risk assessment has been complete d for the patient 08/08/2025 10:46 AM EST A Body Mass Index follow-up plan has been documented for the patient 08/08/2025 11:25 AM EST documented as of this encounter Care Teams Dairy Manager Relationship Specialty Start Date End Date PcpJudit [facility] [place] [address] PCP - General Family Medicine 07/26/25 documented as of this encounter
--- OUTSIDE RECORDS SUMMARY | 2025-09-25 07:46 | XMS_ITS | Encounter Summary ---
Author Organization Healthcare Address [address] [id number] Care Team Providers Care Gag Writer Name Role Phone Pcp, No Primary Care Provider Unavailabl e Encounter Details Date Type Department Care Team (Late st Contact Info) Description 08/06/2025 Orders Only External Location [address] [place] [phone] Leonel Lara MD [address] [place] [address] Social History Tobacco Use Types Packs/Day Years [...] Mcneal RN 6. Suicidal Behavior (Lifetime) No 11/03/202 5 5:04 PM EST Michell Schaffer RN documented as of this encounter Plan of Treatment Upcoming Encounters Date Type Department Care Team (Late st Contact Info) Description 11/21/2025 10:00 AM EST Office Visit [facility] [address] [place] [address] Sridhar Mathew MD [address] [place] [address] documented as of this encounter [...] documented as of this encounter Care Teams Gag Writer Relationship Specialty Start Date End Date Pcp, [place] [address] PCP - General Family Medicine 07/26/25 documented as of this encounter
--- OUTSIDE RECORDS SUMMARY | 2025-09-25 07:46 | XMS_ITS | Encounter Summary ---
Author Organization Healthcare Address [address] [id number] Care Team Providers Care Cullet Washer Name Role Phone Pcp, No Primary Care Provider Unavailabl e Encounter Details Date Type Department Care Team (Late st Contact Info) Description 08/06/2025 Orders Only External Location [address] [place] [phone] Leonel Lara MD [address] [place] [address] Social History Tobacco Use Types Packs/Day Years [...] Description 11/21/2025 10:00 AM EST Office Visit [facility] [address] [place] [address] Sridhar Mathew MD [address] [place] [address] documented as of this encounter [...] documented as of this encounter Care Teams Cullet Washer Relationship Specialty Start Date End Date Pcp, [place] [address] PCP - General Family Medicine 07/26/25 documented as of this encounter
--- OUTSIDE RECORDS SUMMARY | 2025-09-25 07:46 | XMS_ITS | Clinical Summary ---
Author Organization Healthcare Address [address] [place] [address] Care Team Providers Care Chemist Intern Name Role Phone Pcp, No Primary Care Provider Unavailabl e Allergies No known active allergies Medications acetaminophen (Tylenol) 500 MG tablet Take 2 tablets by mouth every 6 hours as needed. 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) 08/29/2025 Telephone [facility] [address] [place] [address] Sridhar Mathew MD 08/29/2025 Travel 08/14/2025 Lab Requisition [facility] [address] [place] [address] Katrin Ding MD Malignant neoplasm of left choroid (CMS/HCC) 08/08/2025 11:15 AM EST Office Visit [facility] [address] [place] [address] Sridhar Mathew MD Acquired anophthalmos (Primary Dx) 08/08/2025 Travel 08/06/2025 4:57 PM EST - 08/06/2025 9:05 PM EST Emergency [facility] Emergency Department [address] [place] [address] Rogelio Stanley MD Ocular discharge (Primary Dx); Acute nonintractable headache, unspecified headache type Discharge Disposition: Home or Self Care 08/06/2025 Orders Only External Location [address] [place] [address] Leonel Lara MD 08/06/2025 Ophth Exam [facility] [address] [place] [address] Jacques Zhong MD 08/06/2025 Travel 08/06/2025 Orders Only External Location [address] [place] [address] Leonel Lara MD 08/06/2025 Orders Only External Location [address] [place] [address] Leonel Lara MD 08/02/2025 3:59 PM EDT Anesthesia Event [facility] [address] [place] [address] Mayela Banerjee MD Ritchie-Dabney, Rosalind, MD 08/02/2025 1:40 PM EDT - 08/02/2025 3:10 PM EDT Surgery [facility] [address] [place] [address] Sridhar Mathew MD Left enucleation with orbital implant insertion [21961 (CPT )] 08/02/2025 11:59 AM EDT - 08/02/2025 6:24 PM EDT Hospital Encounter [facility] [address] [place] [address] Sridhar Mathew MD 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) Discharge Disposition: Home or Self Care 07/30/2025 Travel 07/27/2025 Orders Only [facility] [address] [place] [address] Jose Miguel Mendieta MD 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); Exudative retinal detachment of left eye 07/26/2025 12:35 PM EDT - 07/26/2025 11:59 PM EDT Hospital Encounter [facility] [address] [place] [address] 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) Discharge Disposition: Home or Self Care 07/26/2025 Travel 07/18/2025 12:40 PM EDT Ancillary Procedure [facility] [address] [place] [address] 07/18/2025 12:40 PM EDT Ancillary Procedure [facility] [address] [place] [address] 07/18/2025 12:30 PM EDT Office Visit [facility] [address] [place] [address] Jose Miguel Mendieta MD 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); Exudative retinal detachment of left eye 07/18/2025 Travel 07/17/2025 Telephone [facility] [address] [place] [address] Jose Miguel Mendieta MD from [...] Description 11/21/2025 10:00 AM EST Office Visit [facility] [address] [place] [address] Sridhar Mathew MD [address] [place] [address] Health Maintenance Due Date Last Done Comments [facility]-Depression Screening 1945 [facility]-Medicare Annual Wellness (AWV) 1945 [...] r (1 - 1-dose 75+ series) 2021 [id number] Vaccine (3 - Pfizer risk series) 07/09/2021 06/11/2021, 05/21/2021 [facility]-Influenza Vaccine (#1) 2025 [facility]-Hepatitis C Screening Completed 08/06/2025 [facility]-Obesity Intervention Completed 025, 07/30/2025 HPV Vaccines (No Doses Required) Completed [facility]-HIB Vaccines Aged Out No longer e ligible based on patient's age to complete this topic [facility]-IPV Vaccines Aged Out No longer e ligible based on patient's age to complete this topic [facility]-Rotavirus Vaccines Aged Out No lo nger eligible based on patient's age to complete this topic Medical Devices Implanted Type Area Change Coordinator Device Identifier Shelf Expiration Date Model / Serial / Lot Conformer Large W/Holes - [id number] Implanted:07/06 by Sridhar Mathew MD at [facility] (Quantity not on file) [facility] Ophthalmics-[id number] / / Conformer Small W/Holes - [id number] Implanted:07/06 by Sridhar Mathew MD at [facility] (Quantity not on file) [facility] Ophthalmics-[id number] / / Sphere Eye 18mm - [id number] Implanted:07/06 by Sridhar Mathew MD at [facility] (Quantity not on file) [employer] Ophthalmics-[id number] / / Sphere Eye 22mm - [id number] Implanted:07/06 by Sridhar Mathew MD at [facility] (Quantity not on file) Ed Ophthalmics-[id number] / / Conformer Medium W/Holes - [id number] - [id number] Implanted:Qty: 1 on 08/02/2025 by Sridhar Mathew MD at [facility] Left: Eye Ed Ophthalmics-[id number] 7 05/20/2026 [id number] / [id number] / [id number] Eye Sphere 20mm - [id number] - [id number] Implanted:Qty: 1 on 08/02/2025 by Sridhar Mathew MD at [facility] Left: Eye [facility] Ophthalmics-[id number] 7 05/20/2026 [id number] / [id number] / [id number] Tissue Sclera - [id number] - [id number] Implanted:Qty: 1 on 08/02/2025 by Sridhar Mathew MD at [facility] Left: Eye [id number] 03/02/2026 SCLERA TISSUE / [id number] / OSSW Procedures Procedure Name Priority Date/Time [...] melanoma of choroid of left eye (CMS/HCC) AP MISCELLANEOUS LAB TEST (SO) Routine 08/02/2025 4:26 PM EDT Malignant neoplasm of left choroid (CMS/HCC) PB ANESTHESIA PLACEHOLDER Routine 08/02/2025 4:04 PM EDT CO AN ELECTIVE SUPRAGLOTTIC AIRWAY Routine 08/02/2025 4:04 PM EDT CO REMOVE EYE W MUSC TO IMPLANT 08/02/2025 [...] 1/2 Differentiation (08/06/2025 5:40 PM EST) Pathologist [facility] HIV 1 & 2 Antibody/Antigen Screen Non Reactive Non Reactive 08/06/2025 6:48 PM EST [facility] Comment:Screening for HIV 1 & 2 antibodies, and P24 antigen is NONREACTIVE. No confirmatory testing is required. Blood Venous blood specimen / Unknown Venipuncture / Unknown 08/06/2025 5:40 PM EST 08/06/2025 5:52 PM EST Lillian Mclain MD LAB BLOOD ORDERABLES Final Re sult Performing Organization Address City/[facility]/ZIP Co de Phone Number [facility] [address] [place] [address] * Hepatitis C Antibody - ED (08/06/2025 5:40 PM EST) Pathologist [facility] Hepatitis C Antibody Negative Negative 08/06/2025 6:46 PM EST [facility] Blood Venous blood specimen / Unknown Venipuncture / Unknown 08/06/2025 5:40 PM EST 08/06/2025 5:52 PM EST Lillian Mclain MD LAB BLOOD ORDERABLES Final Re sult [facility] [address] [place] [address] * (ABNORMAL) CBC w/diff (08/06/2025 5:40 PM EST) Pathologist [facility] WBC Count 10.17 3.70 - 10.30 10*3/uL LAB HEMATOLOGY METHOD 08/06/2025 6:26 PM EST [facility] RBC Count 4.95 4.60 - 6.10 10*6/uL LAB HEMATOLOGY METHOD 08/06/2025 6:26 PM [facility] HGB 14.3 13.7 - 17.5 g/dL LAB HEMATOLOGY METHOD 08/06/2025 6:26 PM [facility] HCT 43.0 40.0 - 51.0 % LAB HEMATOLOGY METHOD 08/06/2025 6:26 PM [facility] Platelet Count 289 155 - 369 10*3/uL LAB HEMATOLOGY METHOD 08/06/2025 6:26 PM [facility] MCV 87 79 - 98 fL LAB HEMATOLOGY METHOD 08/06/2025 6:26 PM [facility] MCH 28.9 26.0 - 32.0 pg LAB HEMATOLOGY METHOD 08/06/2025 6:26 PM [facility] MCHC 33.3 30.7 - 35.5 g/dL LAB HEMATOLOGY METHOD 08/06/2025 6:26 PM [facility] RDW 13.4 11.5 - 14.5 % LAB HEMATOLOGY METHOD 08/06/2025 6:26 PM [facility] MPV 10.6 8.8 - 12.5 fL LAB HEMATOLOGY METHOD 08/06/2025 6:26 PM [facility] nRBC 0.0 <=0.0 per 100 WBCs LAB HEMATOLOGY METHOD 08/06/2025 6:26 PM [facility] Differential Type Automated LAB HEMATOLOGY METHOD 08/06/2025 6:26 PM [facility] Neutrophils % 83 % LAB HEMATOLOGY METHOD 08/06/2025 6:26 PM [facility] Lymphocytes % 8 % LAB HEMATOLOGY METHOD 08/06/2025 6:26 PM [facility] Monocytes % 9 % LAB HEMATOLOGY METHOD 08/06/2025 6:26 PM [facility] Eosinophils % 0 % LAB HEMATOLOGY METHOD 08/06/2025 6:26 PM [facility] Basophils % 0 % LAB HEMATOLOGY METHOD 08/06/2025 6:26 PM [facility] Immature Granulocytes % 0 % LAB HEMATOLOGY METHOD 08/06/2025 6:26 PM [facility] Neutrophils Absolute 8.43(H) 1.60 - 6.10 10*3/uL LAB HEMATOLOGY METHOD 08/06/2025 6:26 PM [facility] Lymphocytes Absolute 0.76(L) 1.20 - 3.90 10*3/uL LAB HEMATOLOGY METHOD 08/06/2025 6:26 PM EST [facility] Monocytes Absolute 0.91(H) 0.30 - 0.90 10*3/uL LAB HEMATOLOGY METHOD 08/06/2025 6:26 PM EST [facility] Eosinophils Absolute 0.01 0.00 - 0.50 10*3/uL LAB HEMATOLOGY METHOD 08/06/2025 6:26 PM EST [facility] Basophils Absolute 0.03 0.00 - 0.10 10*3/uL LAB HEMATOLOGY METHOD 08/06/2025 6:26 PM EST [facility] Immature Granulocytes Absolute 0.03 0.00 - 0.06 10*3/uL LAB HEMATOLOGY METHOD 08/06/2025 6:26 PM EST [facility] Blood Venous blood specimen / Unknown Venipuncture / Unknown 08/06/2025 5:40 PM EST 08/06/2025 5:57 PM EST Narrative [facility] - 08/06/2025 6:26 PM EST Therapeutic decision making should be based on absolute values, rather than percentages. Lillian Mclain MD LAB BLOOD ORDERABLES Final Re sult Performing Organization Address City/[facility]/ZIP Co de Phone Number [facility] [address] [place] [address] * (ABNORMAL) Magnesium (08/06/2025 5:40 PM EST) Magnesium, Plasma 1.8(L) 1.9 - 2.4 mg/dL 08/06/2025 6:34 PM EST [facility] Blood Venous blood specimen / Unknown Venipuncture / Unknown 08/06/2025 5:40 PM EST 08/06/2025 5:52 PM EST Lillian Mclain MD LAB BLOOD ORDERABLES Final Re sult [facility] [address] [place] [address] * (ABNORMAL) CMP (08/06/2025 5:40 PM EST) Glucose, Plasma 107(H) 74 - 99 mg/dL 08/06/2025 6:34 PM [facility] BUN, Plasma 13 8 - 23 mg/dL 08/06/2025 6:34 PM [facility] Creatinine, Plasma 0.92 0.70 - 1.20 mg/dL 08/06/2025 6:34 PM [facility] BUN/Creatinine Ratio 14 08/06/2025 6:34 PM [facility] Sodium, Plasma 134(L) 136 - 145 mmol/L 08/06/2025 6:34 PM [facility] Potassium, Plasma 4.6 3.6 - 4.9 mmol/L 08/06/2025 6:34 PM [facility] Chloride, Plasma 98 97 - 107 mmol/L 08/06/2025 6:34 PM [facility] CO2, Plasma 26 22 - 29 mmol/L 08/06/2025 6:34 PM [facility] Anion Gap 10 6 - 16 mmol/L 08/06/2025 6:34 PM [facility] Total Calcium, Plasma 10.4(H) 8.9 - 10.2 mg/dL 08/06/2025 6:34 PM [facility] Total Protein 7.3 6.3 - 7.9 g/dL 08/06/2025 6:34 PM [facility] Albumin, Plasma 4.2 3.5 - 5.2 g/dL 08/06/2025 6:34 PM [facility] AST, Plasma 19 10 - 50 U/L 08/06/2025 6:34 PM [facility] Comment:Hemolyzed, result ma y be falsely increased. ALT, Plasma 20 10 - 50 U/L 08/06/2025 6:34 PM [facility] Alkaline Phosphatase, Plasma 122(H) 40 - 115 U/L 08/06/2025 6:34 PM [facility] Total Bilirubin, Plasma 0.8 0.2 - 1.1 mg/dL 08/06/2025 6:34 PM [facility] eGFRcr 84.6 mL/min/1.7 3m*2 08/06/2025 6:34 PM [facility] Comment:Reported eGFRcr in m L/min/1.73m2 is based the CKD-EPI 2020 equation that does not use a race coefficient. Blood Venous blood specimen / Unknown Venipuncture / Unknown 08/06/2025 5:40 PM EST 08/06/2025 5:52 PM EST Lillian Mclain MD LAB BLOOD ORDERABLES Final Re sult Performing Organization Address City/[facility]/ZIP Co de Phone Number [facility] [address] [place] [address] * EKG now - STAT (adult) (08/06/2025 5:08 PM EST) EKG DIAGNOSIS CLASS Abnormal MUSE ECG Ventricular Rate 66 BPM MUSE ECG Atrial Rate 66 BPM MUSE ECG CO Interval 108 ms MUSE ECG QRSD Interval 104 ms MUSE ECG QT Interval 398 ms MUSE ECG QTC Interval 417 ms MUSE ECG P Evans 2 degrees MUSE ECG R Evans -27 degrees MUSE ECG T Wave Evans 52 degrees MUSE ECG Diagnosis Sinus rhythm with short CO with occasional premature ventricular complexes MUSE ECG [...] Lillian Mclain MD ECG ORDERABLES Final Result Performing Organization Address City/[facility]/ZIP Co de Phone Number MUSE ECG * CT OUTSIDE IMAGES (08/06/2025 12:04 PM EST) Only the most recent of2 resultswithin the time period is included. Anatomical Region Laterality Modality Computed Tomogra phy 08/06/2025 12:0 4 PM EST Leonel Lara MD IMG CT PROCEDURES Edited Re sult - Final * XR OUTSIDE IMAGES (08/06/2025 10:10 AM EST) Anatomical Region Laterality Modality Radiographic Radha ging 08/06/2025 us Leonel Lara MD IMG XR PROCEDURES Edited Re sult - Final * - AP Miscellaneous Test (08/02/2025 4:26 PM EDT) Test name Decision Dx, UM, UmSeq, [employer] 09/19/2025 9:14 AM EST [facility] Comment:[id number]; FedEx# [id number] Test Result See imported Documents 09/19/2025 9:14 AM EST [facility] See Scanned Result 09/19/2025 9:14 AM EST [facility] Tissue 08/02/2025 4:26 PM EDT 08/14/2025 2:39 PM EST us Katrin Ding MD LAB REF LAB BLOOD AND FLUID O RD Final Result [facility] [address] [place] [address] * Surgical Pathology Exam (08/02/2025 4:26 PM EDT) Case Report Surgical Pathology Case: [id number] Authorizing Provider: Sridhar Mathew MD Collected: 08/02/2025 1626 Ordering Location: [facility] Received: 08/03/2025 0753 Surgery Pathologist: Katrin Ding MD Specimen: Eye, Left, Left globe 12:25 PM EST [facility] Final Diagnosis A. 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 The results will be issued in an addendum. 12:25 PM EST [facility] Synoptic Checklist UVEAL MELANOMA UVEAL MELANOMA - [...] nodes submitted or found) 12:25 PM EST [facility] Clinical Information Malignant melanoma of choroid of [...] from 7:00 - 12:00 5 12:25 PM [facility] Special and Immunohistochemical Stains Special Stain: A1-6 PAS: highlights Descemet's membrane with abundant guttae IHC: A1-7 Melan-A Red Chromogen: highlights melanocytic tumor cells infiltrating the iris and angle All controls show appropriate reactivity. All immunohistochemist ry, in situ hybridization, and histochemical tests were developed by and are performed at the [facility], [address] [place] [address]. All tests reported here, except those addressing [...] negativity on decalcified specimens. 5 12:25 PM [facility] Gross Description A. LEFT GLOBE One [...] A2 Cold Time: <1m 12:25 PM EST [facility] Note: A resident was involved in the service. I attest I examined the relevant preparations for the specimens and confirmed the diagnosis or interpretation. 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.32] us Sridhar Mathew MD LAB PATHOLOGY ORDERABLES [employer] Result [facility] [address] [place] [address] * CO AN ELECTIVE SUPRAGLOTTIC AIRWAY, PB ANESTHESIA PLACEHOLDER (08/02/2025 4:04 PM EDT) Narrative Daniela Kowalski CRNA - 08/02/2025 4:04 PM EDT Daniela Kowalski CRNA 08/02/2025 4:10 PM Airway Date/Time: 08/02/2025 4:04 PM Reason: elective Airway not difficult General Information and Staff Patient location during procedure: OR RESEARCH PHYSIOLOGIST: Daniela Kowalski CRNA Performed: LILO Patient Condition [...] using the following sequences: coronal single shot [id number] fast spin echo, axial T2 weighted sequences [...] multiecho sequences were obtained utilizing T1 and D4paakisarp and axial diffusion weighted images through the [...] the medial aspect of the globe measures [id number] mm AP by 11 mm transverse by [...] 07/26/2025 2:11 PM Jose Miguel Mendieta MD IM CT PROCEDURES Final Result * CT Chest [...] Left eye (OS) not right eye (OD) Jose Miguel Mendieta MD OPHTH ULTRASOUND Edited Result - Final * B-Scan Ultrasound - OD - Right Eye (07/18/2025 5:47 PM EDT) Anatomical Region Laterality Modality Head Other Narrative 07/18/2025 5:47 PM EDT Images from the original result were not included. Quality was good. Notes Addendum: Left eye (OS) not right eye (OD) Jose Miguel Mendieta MD OPHTH ULTRASOUND Edited Result - Final * Wide Field Color Fundus Photography - OU - Both Eyes (07/18/2025 5:46 PM EDT) Anatomical Region Laterality Modality Fundus Photograp hy Narrative 07/18/2025 5:46 PM EDT Right eye dilated tortous vessel, rest within normal limit Left eye large cilliochoroidal mass lesion from 6-12 o'clock with Exudative Retinal Detachment Jose Miguel Mendieta MD OPHTH PHOTOGRAPHY Final [...] TOMOGRAPHY Final Result from Last 3 Months Insurance ASTRID [place] [id number] [employer] MEDICARE Care Teams Chemist Intern Relationship Specialty Start Date End Date Pcp, No [address] [place] [address] PCP - General Family Medicine 07/26/25
--- OUTSIDE RECORDS SUMMARY | 2025-09-25 07:46 | XMS_ITS | Encounter Summary ---
Author Organization Healthcare Address [address] [place] [id number] Care Team Providers Care Internal Review And Audit Compliance Name Role Phone Pcp, No Primary Care Provider Unavailabl e Encounter Details Date Type Department Care Team (Late st Contact Info) Description 08/06/2025 Orders Only External Location [address] [place] [phone] Leonel Lara MD [address] [place] [address] Social History Tobacco Use Types Packs/Day Years [...] Description 11/21/2025 10:00 AM EST Office Visit [facility] [address] [place] [address] Sridhar Mathew MD [address] [place] [address] documented as of this encounter Procedures Procedure Name Priority Date/Time Associated Diagnosis Comments XR OUTSIDE IMAGES 08/06/2025 10:10 AM EST documented in this encounter Results * XR OUTSIDE IMAGES (08/06/2025 10:10 AM EST) Anatomical Region Laterality Modality Radiographic Radha ging 08/06/2025 Leonel Lara MD IMG XR PROCEDURES Edited [...] documented as of this encounter Care Teams Internal Review And Audit Compliance Relationship Specialty Start Date End Date Pcp, [place] [address] PCP - General Family Medicine 07/26/25 documented as of this encounter
--- OUTSIDE RECORDS SUMMARY | 2025-09-25 07:46 | XMS_ITS | Encounter Summary ---
Author Organization Healthcare Address [address] [place] [address] Care Team Providers Care Belly Roller Name Role Phone Pcp, No Primary Care Provider Unavailabl e Encounter Details Date Type Department Care Team (Late Contact Info) Description 08/29/2025 Telephone [facility] [address] [place] [address] Sridhar Mathew MD [address] [address] Social History Tobacco Use Types [...] Department Care Team (Late Contact Info) Description 11/21/2025 10:00 AM EST Office Visit [facility] [address] [place] [address] Sridhar Mathew MD [address] [address] documented as of this encounter Visit Diagnoses Not on filedocumented in this encounter Additional Health Concerns Assessment Noted Time A fall risk assessment has been complete d for the patient 08/08/2025 10:46 AM EST A Body Mass Index follow-up plan has been documented for the patient 08/08/2025 11:25 AM EST documented as of this encounter Care Teams Belly Roller Relationship Specialty Start Date End Date Pcp, [place] [address] PCP - General Family Medicine 07/26/25 documented as of this encounter
--- OUTSIDE RECORDS SUMMARY | 2025-09-25 07:46 | XMS_ITS | Encounter Summary ---
Author Organization Healthcare Address [address] [place] [address] Care Team Providers Care Assistant Softball Coach Name Role Phone Pcp, Judit Primary Care Provider Unavailabl e Encounter Details Date Type Department Care Team (Latest Contact Info) Description 08/29/2025 Travel Social History Tobacco Use Types Packs/Day [...] Description 11/21/2025 10:00 AM EST Office Visit [facility] [address] [place] [address] Sridhar Mathew MD [address] [address] documented as of this encounter Visit Diagnoses Not on filedocumented in this encounter Additional Health Concerns Assessment Noted Time A fall risk assessment has been complete d for the patient 08/08/2025 10:46 AM EST A Body Mass Index follow-up plan has been documented for the patient 08/08/2025 11:25 AM EST documented as of this encounter Care Teams Assistant Softball Coach Relationship Specialty Start Date End Date PcpJudit [facility] [place] [address] PCP - General Family Medicine 07/26/25 documented as of this encounter
--- OUTSIDE RECORDS SUMMARY | 2025-09-25 07:46 | XMS_ITS | Encounter Summary ---
Author Organization Healthcare Address [address] [place] [address] Care Team Providers Care Fuselage Framer Name Role Phone Pcp, No Primary Care [...] Description 11/21/2025 10:00 AM EST Office Visit [facility] [address] [place] [address] Sridhar Mathew MD [address] [place] [address] documented as of this encounter Visit Diagnoses Not on filedocumented in this encounter Additional Health Concerns Assessment Noted Time A fall risk assessment has been complete d for the patient 07/18/2025 12:58 PM EDT A Body Mass Index follow-up plan has been documented for the patient 07/30/2025 12:13 PM EDT documented as of this encounter Care Teams Fuselage Framer Relationship Specialty Start Date End Date Pcp, [place] [address] PCP - General Family Medicine 07/26/25 documented as of this encounter
--- OUTSIDE RECORDS SUMMARY | 2025-09-25 07:46 | XMS_ITS | Encounter Summary ---
Author Organization Healthcare Address [address] [place] [address] Care Team Providers Care Analyst [employer] Name Role Phone Pcp, No Primary Care Provider Unavailabl e Encounter Details Date Type Department Care Team (Late st Contact Info) Description 08/06/2025 Ophth Exam [facility] [address] [place] [phone] Jacques Zhong MD [address] [place], [place] [id number] Social History Tobacco Use Types Packs/Day Years [...] Mcneal RN 6. Suicidal Behavior (Lifetime) No 5 5:04 PM EST Michell Schaffer RN documented as of this encounter Plan of Treatment Upcoming Encounters Date Type Department Care Team (Late st Contact Info) Description 11/21/2025 10:00 AM EST Office Visit [facility] [address] [place] [address] Sridhar Mathew MD [address] [phone] documented as of this encounter Visit Diagnoses Not on filedocumented in this encounter Additional Health Concerns Assessment Noted Time A fall risk assessment has been complete d for the patient 07/18/2025 12:58 PM EDT A Body Mass Index follow-up plan has been documented for the patient 07/30/2025 12:13 PM EDT documented as of this encounter Care Teams Analyst [employer] Relationship Specialty Start Date End Date Pcp, No [address] [place] [address] PCP - General Family Medicine 07/26/25 documented as of this encounter
--- OUTSIDE RECORDS SUMMARY | 2025-09-25 07:46 | XMS_ITS | Encounter Summary ---
Author Organization Healthcare Address [address] [place] [address] Care Team Providers Care Physicist [employer] Name Role Phone Pcp, Judit Primary Care [...] Description 11/21/2025 10:00 AM EST Office Visit [facility] [address] [place] [address] Sridhar Mathew MD [address] [phone] documented as of this encounter Visit Diagnoses Not on filedocumented in this encounter Additional Health Concerns Assessment Noted Time A fall risk assessment has been complete d for the patient 07/18/2025 12:58 PM EDT A Body Mass Index follow-up plan has been documented for the patient 07/30/2025 12:13 PM EDT documented as of this encounter Care Teams Physicist [employer]ogenics Relationship Specialty Start Date End Date Pcp, Judit [address] [place] [address] PCP - General Family Medicine 07/26/25 documented as of this encounter
--- NOTE | 2025-09-25 08:00 | NM_ITS ---
APPROVED REPORT Exam: Nuclear Stress Test Indication: Chest pain, SOB, Former tobacco use Patient Location: Outpatient Stress Tech: Irene Webb NM Tech:Diann Mayen, ARRT, RT (R)(N) Ht: 5 ft 6 in Wt: 165 lbs HR: 62 bpm BP: 140/78 mmHg BSA: 1.84 m2 TID: 1.07 BMI: 26.6 History: Chest pain, SOB, Former tobacco use Procedure: Patient received 0.4 mg of intravenous Lexiscan, resting heart rate 62 bpm, resting blood pressure 140/78 mmHg, with Lexiscan maximum heart rate achieved was 86 bpm which is % of the maximum predicted heart rate and blood pressure was 140/72 mmHg. With Lexiscan, patient denied any complaint of chest pain. Cardiac Stress and Resting SPECT Images: Cardiac Stress and Resting SPECT images were obtained using technetium 99m Myoview 32.7 mCi stress and 10.77 mCi at rest. Resting and stress imaging in supine and prone positions demonstrate a small sized, moderate, partially reversible perfusion defect in the basal inferior LV wall. Gated imaging demonstrates mild reduction global LV systolic function. LVEF is calculated at 46%. Conclusion: Small sized, moderate, partially reversible perfusion defect in the basal inferior LV wall. Findings are suggestive of reversible ischemia. Gated imaging demonstrates mild reduction global LV systolic function. LVEF is calculated at 46%. Electronically signed by : Isela Flores MD 09/26/2025 20:52:14
[2025-09-25 09:15] VITALS: BP 140/78; PULSE 64; RESP 16
[2025-09-25] MEDS: ISOTOPE MYOVIEW (PER STUDY) 1 DOSE IV (09:27)
[2025-09-25] MEDS: SODIUM CHLORIDE 0.9% 10ML SYR (RAD ONLY) 10 ML IV ×2 (09:27)
== END 2025-09-25 23:59 | disposition home or self-care (01) ==
LOC: RAD 07:43
PROVIDERS: PCP Family Medicine; Visit Provider Physician Assistant
DX: I49.3 Ventricular premature depolarization (principal); R94.39 Abnormal result of other cardiovascular function study; Z87.891 Personal history of nicotine dependence
CPT/HCPCS: 78452; 93017; 93018; A9502; J2785